=== PATIENT | male | born 1965 | race Caucasian/White ===

== ENCOUNTER 2017-01-11 10:08 | Day surgery (SDC) | payer BC ==
[2016-12-28 10:57] VITALS: BMI 31.0
--- NOTE | 2016-12-28 11:20 | PAT Medication Instructions ---
Service Date Dec 28, 2016. Current Home Medication List Dutasteride (Dutasteride), 1 CAP PO QAM Fexofenadine Hcl (Eleni Allergy), 1 TAB PO QAM Fluticasone Propionate (Nasal) (Flonase Allergy Relief), 2 SPRAY NAZIA QAM Ibuprofen (Motrin), 400 MG PO Q6H PRN for Pain Lisinopril (Zestril), 20 MG PO QAM Tamsulosin HCl (Tamsulosin HCl), 1 CAP PO QAM Medication Instructions For Your Scheduled Surgery - Check with surgeon for instructions: Ibuprofen (Motrin), 400 MG PO Q6H PRN for Pain - Hold the following medications the morning of surgery: Tamsulosin HCl (Tamsulosin HCl), 1 CAP PO QAM Lisinopril (Zestril), 20 MG PO QAM Dutasteride (Dutasteride), 1 CAP PO QAM Fexofenadine Hcl (Eleni Allergy), 1 TAB PO QAM - Take the following medications the morning of surgery with a sip of water: Fluticasone Propionate (Nasal) (Flonase Allergy Relief), 2 SPRAY NAIZA QAM If you have any questions please call us at [phone] (Coral Fraser PA-C) or [phone] or [phone]
--- NOTE | 2016-12-28 11:50 | DIAGNOSTIC IMAGING REPORT ---
TWO VIEW CHEST CLINICAL HISTORY: Preoperative examination. FINDINGS: PA and lateral chest radiographs are obtained. No prior studies are available for comparison at the time of dictation. The cardiomediastinal silhouette is unremarkable. The lungs and pleural spaces are clear. There is no pneumothorax. The bony thorax appears intact. IMPRESSION: No active disease in the chest. Electronically signed by: Chris Zacarias M.D. 12/28/2016 11:49 AM Dictated Date/Time: 12/28/2016 11:49 AM
[2016-12-28 13:26] LABS: BASO % 0.3 %; BASO ABS # 0.02 K/uL (0-0.2); COMPLETE YES; EOS % 2.7 %; HEMATOCRIT 43.4 % (42-52); IG% 0.3 %; LYMPH % 18.9 %; LYMPH ABS # 1.38 K/uL (1.2-3.4); MEAN CELL VOLUME 79.6 fL (80-100); MEAN CORPUSCULAR HEMOGLOBIN 28.8 pg (25-34); MEAN CORPUSCULAR HGB CONC 36.2 g/dl (32-36); MEAN PLATELET VOLUME 8.5 fL (7.4-10.4); MONO % 8.1 %; NEUT % 69.7 %; PLATELET COUNT 170 K/uL (130-400); RED BLOOD COUNT 5.45 M/uL (4.7-6.1); WHITE BLOOD COUNT 7.32 K/uL (4.8-10.8)
[2016-12-28 13:34] LABS: URINE APPEARANCE CLEAR (CLEAR); URINE BILIRUBIN NEG (NEG); URINE COLOR YELLOW; URINE NITRITE NEG (NEG); URINE PH 5.5 (4.5-7.5); URINE SPECIFIC GRAVITY 1.016 (1.000-1.030); UROBILINOGEN NEG (NEG)
[2016-12-28 13:37] LABS: MANUAL MICROSCOPIC REQUIRED? NO; REVIEW REQ? NO
[2016-12-28 14:06] LABS: BUN/CREATININE RATIO 14.1 (10-20); CALCIUM 9.4 mg/dl (8.5-10.1); CREATININE 1.1 mg/dl (0.60-1.40); POTASSIUM 4.5 mmol/L (3.5-5.1)
[2016-12-28 14:09] LABS: PROSTATE SPECIFIC ANTIGEN 0.773 ng/ml (0.000-4.000)
[~2017-01-11] VITALS: Ht 190.5 cm; Wt 113.9 kg
[~2017-01-11 10:08] MED LIST: CIPROFLOXACIN 400MG / D5W IV SCH; DUTA1CAP3 PO; FEXO1TAB49 PO; FLM4 PO; FLUT0.15 NAE; IBUP-1459 PO; LACTATED RINGER'S 1000ML 1,000 ML IV SCH; LISI-725 PO
[2017-01-11 10:25] VITALS: BP 153/84; PULSE 70; TEMP 37.1; O2SAT 98; Ht 190.5 cm; Wt 113.9 kg
[2017-01-11] MEDS ORDERED: HYDROmorphone INJ 2 MG/ML SYR/VIAL IV PRN (10:45)
[2017-01-11] MEDS ORDERED: EpHEDrine SULFATE INJ 50 MG/ML AMP IV PRN (10:45)
[2017-01-11] MEDS ORDERED: PHENYLEPHRINE 100MCG/ML 5ML SYR IV PRN (10:45)
[2017-01-11] MEDS ORDERED: ONDANSETRON INJ 2 MG/ML 2 ML VIAL IV PRN (10:45)
[2017-01-11] MEDS ORDERED: ATROPINE SULFATE 0.1 MG/ML 5ML SYR IV PRN (10:45)
[2017-01-11] MEDS ORDERED: FENTANYL CITRATE INJ 50 MCG/1 ML 2 ML VIAL ONE ×2 (10:47→12:12)
[2017-01-11] MEDS ORDERED: LIDOCAINE HCL 2% 2 ML VIAL (20MG/ML) ONE (10:47)
[2017-01-11] MEDS ORDERED: ROCURONIUM BROMIDE 10 MG/ML 5 ML VIAL ONE (10:47)
[2017-01-11] MEDS ORDERED: PROPOFOL IV EMULSION 10 MG/ML 20 ML VIAL IV ONE (10:47)
[2017-01-11] MEDS ORDERED: GLYCOPYRROLATE INJ 0.2 MG/ML VIAL ONE (10:47)
[2017-01-11] MEDS ORDERED: ONDANSETRON INJ 2 MG/ML 2 ML VIAL ONE (10:47)
[2017-01-11] MEDS ORDERED: NEOSTIGMINE METHYLSULFATE 5 MG/5 ML SYR ONE (10:47)
[2017-01-11] MEDS ORDERED: MIDAZOLAM HCL 1 MG/ML 2ML VIAL ONE (10:47)
--- NOTE | 2017-01-11 11:24 | History & Physical Bridge Note ---
H&P Re-Evaluation Bridge Note: I have examined the patient, reviewed the History & Physical and in the interval since the performance of the History & Physical I have noted the following changes of clinical significance: No changes noted
[2017-01-11] MEDS ORDERED: EpHEDrine SULFATE 50MG/5ML SYR ONE (12:09)
--- NOTE | 2017-01-11 13:07 | [facility] Post Operative Brief Note ---
Immediate Operative Summary Operative Date Jan 11, 2017. Pre-Operative Diagnosis Benign Prostatic Hypertrophy with Imcomplete Bladder Emptying Post-Operative Diagnosis Benign Prostatic Hypertrophy with Imcomplete Bladder Emptying Procedure(s) Performed Bipolar Transurethral Resection of Prostate Surgeon Dr. Everardo Garza Graduate Engineer Surgeon(s) None Estimated Blood Loss 2ml Findings obstructing prostate Specimens No specimen as per surgeon
[2017-01-11] MEDS ORDERED: NITR-5 PO (13:09)
[2017-01-11] MEDS ORDERED: PHEN-876 PO (13:09)
[2017-01-11] MEDS ORDERED: OXYC-57 PO (13:09)
--- NOTE | 2017-01-11 13:09 | Discharge Instructions ---
Discharge Instructions Visit Reason for Visit: Benign Prostatic Hyperplasia Discharge Discharge Diagnosis / Problem: BPH Discharge Goals Goal(s): Therapeutic intervention Activity Recommendations Activity Limitations: resume your previous activity (take it easy while cathether is in) Anesthesia . Post Anesthesia Instructions: If you have had General Anesthesia or IV Sedation: * Do not drive today. * Resume driving when surgeon permits. * Do not make important decisions or sign legal documents today. * Call surgeon for: 1. Temperature elevations greater than 101 degrees F. 2. Uncontrollable pain. 3. Excessive bleeding. 4. Persistent nausea and vomiting. 5. Medication intolerance (nausea, vomiting or rash). * For nausea and vomiting use only clear liquids such as: tea, soda, bouillon until nausea subsides, then gradually increase diet as tolerated. * If you have any concerns or questions, call your surgeon's office. If physician is unavailable and it is an emergency, call 911 or go to the nearest emergency room. . Diet Recommendations Recommended Home Diet: resume previous diet Procedures Procedures Performed: Bipolar Transurethral Resection of Prostate Pending Studies Studies pending at discharge: no Medical Emergencies . Who to Call and When: Medical Emergencies: If at any time you feel your situation is an emergency, please call 911 immediately. . Non-Emergent Contact Non-Emergency issues call your: Urologist . . "Provider Documentation" section prepared by Everardo Garza. PA Drug Monitoring Program Search Results: patient reviewed within database
[2017-01-11] MEDS ORDERED: OXYCODONE/ACETAMINOPHEN 5-325 TAB PO PRN (13:15)
--- NOTE | 2017-01-11 13:49 | Anesthesiology Progress Note ---
Anesthesia Post Op Note Date & Time Jan 11, 2017 at 13:49 Vital Signs Pain Intensity: 0 Vital Signs Past 12 Hours Date Time Temp Pulse Resp B/P Pulse Ox O2 Delivery O2 Flow Rate FiO2 01/11/17 13:35 86 16 143/89 100 Room Air 01/11/17 13:25 79 16 142/86 100 Mask 10 01/11/17 13:19 81 16 146/88 100 Mask 10 01/11/17 13:09 37 90 12 132/77 98 Mask 10 01/11/17 10:25 37.1 70 18 153/84 98 Room Air Notes Mental Status: alert / awake / arousable, participated in evaluation Pt Amnestic to Procedure: Yes Nausea / Vomiting: adequately controlled Pain: adequately controlled Airway Patency, RR, SpO2: stable & adequate BP & HR: stable & adequate Hydration State: stable & adequate Anesthetic Complications: no major complications apparent
[2017-01-11 14:00] VITALS: BP 144/91; PULSE 80; TEMP 37; O2SAT 100
--- NOTE | 2017-01-11 14:18 | OPERATIVE REPORT ---
DATE OF OPERATION: 01/11/2017 PREOPERATIVE DIAGNOSIS: Lower urinary tract symptoms with incomplete bladder emptying secondary to benign prostatic hyperplasia. POSTOPERATIVE DIAGNOSIS: Same. PROCEDURES: Cystoscopy, transurethral vaporization of the prostate. FINDINGS: Cystoscopic exam revealed normal anterior urethra, prostatic fossa was obstructing with kissing lateral lobes, a very elevated median lobe. Bladder showed 2 to 3+ trabeculation with cellules. Both ureteral orifices were effluxing clear urine. SURGEON: Everardo Garza MD ANESTHESIA: General. DRAINS: 20-[place] Marmolejo catheter in bladder. COMPLICATIONS: None. SPECIMENS: None. INDICATIONS: The patient is a 51-year-old white male who was seen in the office for some lower urinary tract symptoms. Unfortunately, his postvoid residuals or over 500 mL. He failed medical therapy with alpha blockers and 7-pjjbq-jyokckofp inhibitors. He is being brought in now for resection. DESCRIPTION OF PROCEDURE: After the induction of an adequate general anesthetic and appropriate time-out, patient was placed in the dorsal lithotomy position. Lower abdomen and genitalia were prepped with Hibiclens and draped in a sterile fashion. Using a 22-[place]icar[place]uan cystoscope, routine cystoscopic exam was performed with the above noted findings with the 30 and 70 degree lenses. Next, using a 24-[place]icaraguan resection scope and button electrode, the prostatic adenoma was vaporized from the bladder neck to the verumontanum from 1 o'clock to 6 o'clock clockwise and 11 o'clock to 6 o'clock counter clockwise. The little strip at the bladder neck between 11 and 1 was left untouched to help prevent bladder neck contractions. Care was taken to avoid injury to the ureteral orifices. After completing the vaporization and creating a wide open prostatic fossa, all bleeding points were electrocoagulated. Final view from the verumontanum revealed a wide open prostatic fossa. There was no bleeding. The patient's bladder was filled, he voided with a good stream on Crede maneuver. A 20-[place] Marmolejo catheter was inserted per urethra into the bladder and hooked to gravity drainage. All needle, sponge and instrument counts were correct at the end of the case. The patient tolerated the procedure well and went to recovery room in stable condition. I attest to the content of the Intraoperative Record and any orders documented therein. Any exceptio ns are noted below.
[2017-01-11 14:28] VITALS: BP 139/92; PULSE 75; O2SAT 100
--- NOTE | 2017-01-11 14:59 | Anesthesiology Progress Note ---
Anesthesia Post Op Note Date & Time Jan 11, 2017 at 15:00 Vital Signs Pain Intensity: 0 Vital Signs Past 12 Hours Date Time Temp Pulse Resp B/P Pulse Ox O2 Delivery O2 Flow Rate FiO2 01/11/17 14:28 75 18 139/92 100 Room Air 01/11/17 14:00 37 80 18 144/91 100 Room Air 01/11/17 13:55 36.6 81 16 148/84 100 Room Air 01/11/17 13:45 36.6 93 16 132/98 100 Room Air 01/11/17 13:35 86 16 143/89 100 Room Air 01/11/17 13:25 79 16 142/86 100 Mask 10 01/11/17 13:19 81 16 146/88 100 Mask 10 01/11/17 13:09 37 90 12 132/77 98 Mask 10 01/11/17 10:25 37.1 70 18 153/84 98 Room Air Notes Mental Status: alert / awake / arousable, participated in evaluation Pt Amnestic to Procedure: Yes Nausea / Vomiting: adequately controlled Pain: adequately controlled Airway Patency, RR, SpO2: stable & adequate BP & HR: stable & adequate Hydration State: stable & adequate Anesthetic Complications: no major complications apparent
[2017-01-11 15:00] VITALS: BP 142/78; PULSE 78; TEMP 37; O2SAT 100
== END 2017-01-11 15:32 | disposition home or self-care (01) ==
LOC: C.ACU 10:08
PROVIDERS: ATTEND Urology
DX: N40.1 Benign prostatic hyperplasia with lower urinary tract symptoms (principal); R33.9 Retention of urine, unspecified; N32.89 Other specified disorders of bladder

== ENCOUNTER → 2017-01-17 | Outpatient (CLI) | payer BC ==
[~2017-01-17] MED LIST changes: -CIPROFLOXACIN 400MG / D5W IV SCH; -LACTATED RINGER'S 1000ML 1,000 ML IV SCH; +NITR-5 PO; +OXYC-57 PO; +PHEN-876 PO
== END | disposition home or self-care (01) ==
LOC: C.LABSPEC 16:59
PROVIDERS: ATTEND Urology
DX: R33.9 Retention of urine, unspecified (principal)

== ENCOUNTER → 2017-01-31 | Outpatient (CLI) | payer BC | END | disposition home or self-care (01) | LOC: C.LAB 17:17 | PROVIDERS: ATTEND Nurse Practitioner Family | DX: R33.9 Retention of urine, unspecified (principal) ==

== ENCOUNTER → 2017-08-12 | Outpatient (CLI) | payer BC ==
[~2017-08-12] MED LIST changes: -NITR-5 PO; -OXYC-57 PO; -PHEN-876 PO
[2017-08-12 16:40] LABS: HEMATOCRIT 41.9 % (42-52); MEAN CORPUSCULAR HEMOGLOBIN 28.6 pg (25-34); MEAN CORPUSCULAR HGB CONC 35.3 g/dl (32-36); MEAN PLATELET VOLUME 8.4 fL (7.4-10.4); PLATELET COUNT 178 K/uL (130-400); RED BLOOD COUNT 5.17 M/uL (4.7-6.1); WHITE BLOOD COUNT 8.98 K/uL (4.8-10.8)
[2017-08-12 17:12] LABS: ALT/SGPT 32 U/L (12-78); AST/SGOT 15 U/L (15-37); BLOOD UREA NITROGEN 18 mg/dl (7-18); BUN/CREATININE RATIO 14.6 (10-20); CALCIUM 8.7 mg/dl (8.5-10.1); CARBON DIOXIDE 24 mmol/L (21-32); CHLORIDE 110 mmol/L (98-107); GLUCOSE 83 mg/dl (70-99); POTASSIUM 4.1 mmol/L (3.5-5.1); SODIUM 140 mmol/L (136-145)
[2017-08-12 17:23] LABS: ALB/GLOB RATIO 1.3 (0.9-2); ALKALINE PHOSPHATASE 120 U/L (45-117); CHOLESTEROL 156 mg/dl (0-200); CHOLESTEROL/HDL RATIO 4.9; HDL CHOLESTEROL 32 mg/dl; LDL CHOLESTEROL CALCULATED 107 mg/dl; TRIGLYCERIDES 85 mg/dl (0-150); VERY LOW DENSITY LIPOPROT CALC 17 mg/dl
== END | disposition home or self-care (01) ==
LOC: C.LABPBG 13:22
PROVIDERS: ATTEND Internal Medicine
DX: I10 Essential (primary) hypertension (principal)

== ENCOUNTER → 2018-01-13 | Outpatient (CLI) | payer OTHER ==
[2018-01-13 12:22] LABS: BASO % 0.5 %; BASO ABS # 0.03 K/uL (0-0.2); EOS % 6.4 %; EOS ABS # 0.39 K/uL (0-0.5); HEMOGLOBIN 14.5 g/dL (14.0-18.0); IG# 0.02 K/uL (0.00-0.02); LYMPH % 30.4 %; LYMPH ABS # 1.84 K/uL (1.2-3.4); MEAN CELL VOLUME 77.1 fL (80-100); MEAN CORPUSCULAR HEMOGLOBIN 27.3 pg (25-34); MEAN CORPUSCULAR HGB CONC 35.4 g/dl (32-36); MONO % 8.6 %; MONO ABS # 0.52 K/uL (0.11-0.59); NEUT % 53.8 %; NEUT ABS # 3.26 K/uL (1.4-6.5); PLATELET COUNT 125 K/uL (130-400); RED CELL DISTRIBUTION WIDTH SD 39.6 fL (36.4-46.3); WHITE BLOOD COUNT 6.06 K/uL (4.8-10.8)
[2018-01-13 16:59] LABS: ALBUMIN 3.9 gm/dl (3.4-5.0); ALT/SGPT 24 U/L (12-78); AST/SGOT 21 U/L (15-37); BLOOD UREA NITROGEN 20 mg/dl (7-18); CALCIUM 8.6 mg/dl (8.5-10.1); CARBON DIOXIDE 22 mmol/L (21-32); CREATININE 1.19 mg/dl (0.60-1.40); GLUCOSE 86 mg/dl (70-99); POTASSIUM 4.2 mmol/L (3.5-5.1); SODIUM 137 mmol/L (136-145)
[2018-01-13 17:10] LABS: ALKALINE PHOSPHATASE 150 U/L (45-117); TOTAL PROTEIN 8.1 gm/dl (6.4-8.2)
== END | disposition home or self-care (01) ==
LOC: C.LABBFT 11:03
PROVIDERS: ATTEND Physician Assistant Medical
DX: R61 Generalized hyperhidrosis (principal)

== ENCOUNTER → 2018-01-16 | Outpatient (CLI) | payer OTHER ==
--- NOTE | 2018-01-16 08:44 | DIAGNOSTIC IMAGING REPORT ---
ABDOMEN COMPLETE (US) CLINICAL HISTORY: 52 years-old Male presenting with NIGHT SWEATS, LUQ TENDERNESS. TECHNIQUE: Real-time grayscale and limited color Doppler ultrasound imaging of the abdomen was performed. COMPARISON: CT from 02/23/2016. FINDINGS: Pancreas: Largely obscured due to overlying bowel gas. Liver: Mildly hyperechogenic parenchyma, although the right hemidiaphragm remains visible, likely indicating mild steatosis. The liver measures 17.3 cm in maximal sagittal dimension. No sonographic evidence of hepatic mass. Main portal vein patent with normal directional flow. Biliary: No intrahepatic biliary ductal dilatation. Common bile duct measures up to 3 mm in diameter. Gallbladder: Minimal gallbladder sludge may be present or diminutive cholesterol polyps. No evidence of gallstones, gallbladder wall thickening, gallbladder distention, or pericholecystic fluid or inflammatory change. Spleen: Enlarged, measuring 20.2 cm in length. This has increased in size since prior CT from 2016, when the spleen measures 16.2 cm in sagittal dimension. Kidneys: Normal in size and echogenicity. Right kidney measures 12.5 cm, and left kidney measures 13.5 cm. No hydronephrosis. Vasculature: Abdominal aorta and IVC not visualized secondary to limited sonographic window. Ascites: None. Other: Prominent lymph node in the john hepatis measuring 2.3 x 1.8 x 1.7 cm, possibly reactive. IMPRESSION: 1. Worsening splenomegaly, which raises concern for an underlying lymphoproliferative disease. Differential considerations include reactive hypertrophy in the setting of a viral illness or portal hypertension. Correlate clinically. 2. Likely reactive lymph node in the john hepatis. 3. Suggestion of hepatic steatosis. The report will be called/faxed according to standard departmental protocol. Electronically signed by: Jatin Francois M.D. 01/16/2018 8:43 AM Dictated Date/Time: 01/16/2018 8:36 AM
== END | disposition home or self-care (01) ==
LOC: C.ULTR 07:43
PROVIDERS: ATTEND Physician Assistant Medical
DX: R16.1 Splenomegaly, not elsewhere classified (principal); R61 Generalized hyperhidrosis

== ENCOUNTER → 2018-01-23 | Outpatient (CLI) | payer OTHER ==
--- NOTE | 2018-01-23 17:01 | DIAGNOSTIC IMAGING REPORT ---
CHEST 2 VIEWS ROUTINE CLINICAL HISTORY: R61 Night sweats dyspnea COMPARISON STUDY: 12/28/2016 FINDINGS: The bones soft tissues and hemidiaphragms are normal. The cardiomediastinal silhouette is normal. The lungs are clear. The pulmonary vasculature is normal. IMPRESSION: Negative chest. The above report was generated using voice recognition software. It may contain grammatical, syntax or spelling errors. Electronically signed by: Ovidio Dueñas M.D. 01/23/2018 5:00 PM Dictated Date/Time: 01/23/2018 4:59 PM
== END | disposition home or self-care (01) ==
LOC: C.RAD 16:35
PROVIDERS: ATTEND Physician Assistant Medical
DX: R61 Generalized hyperhidrosis (principal)

== ENCOUNTER → 2018-01-23 | Outpatient (CLI) | payer OTHER ==
[~2018-01-23] MED LIST changes: +OPTIRAY 320 IV PRN
--- NOTE | 2018-01-23 16:38 | DIAGNOSTIC IMAGING REPORT ---
ABD/PELVIS IV AND ORAL CONT CT DOSE: 886.58 mGy.cm HISTORY: R16.1 [id number] Lymphadenopathy TECHNIQUE: Multiaxial CT images of the abdomen and pelvis were performed following the use of intravenous and oral contrast. A dose lowering technique was utilized adhering to the principles of ALARA. COMPARISON STUDY: 02/23/2016 FINDINGS: Focal atelectatic change medial aspect right middle lobe. Like atelectasis left base. Liver is uniform. Splenomegaly with a greatest linear dimension of 15 cm. Bulky abdominal adenopathy. Nodes are identified throughout the periaortic and retroperitoneal regions, with considerable conglomerate bulky adenopathy involving the root of the mesentery and mid abdominal region. Para-aortic nodes measure up to 4.5 cm with conglomerate isidro dimensions within the mid mesentery measuring up to 13 cm. Kidneys are considered to be negative for hydronephrosis. There is nonspecific infiltrative change of the fat of the Region at the inferior aspect of the abdomen. Mild infiltrative changes of the lateral aspect of the left hemipelvis are noted. There is moderate inguinal adenopathy with nodes measuring up to 2.3 cm. Lateral pelvic sidewall nodes are also noted combined with infiltrative changes described previously. These nodes measure to 1.5 cm. The bowel pattern is considered nonobstructive. Nodes within the low pelvic regions measure up to 4 cm in maximum linear dimension bilaterally. The bowel pattern is considered nonobstructive. The osseous structures show no evidence for lytic or blastic process. IMPRESSION: 1. Interval development of bulky adenopathy involving the abdomen, retroperitoneal, pelvis and inguinal region. 2. This is most prominent within the retroperitoneum and mid abdominal regions with measurements of the conglomerate abdominal adenopathy measuring to 13 cm. 3. A neoplastic process such as lymphoma is the diagnosis of exclusion. 4. Splenomegaly. The above report was generated using voice recognition software. It may contain grammatical, syntax or spelling errors. Electronically signed by: Ovidio Dueñas M.D. 01/23/2018 4:37 PM Dictated Date/Time: 01/23/2018 4:29 PM
== END | disposition home or self-care (01) ==
LOC: C.CTS 16:05
PROVIDERS: ATTEND Physician Assistant Medical
DX: R59.1 Generalized enlarged lymph nodes (principal); R16.1 Splenomegaly, not elsewhere classified

== ENCOUNTER → 2018-01-31 | Outpatient (CLI) | payer OTHER ==
[~2018-01-31] MED LIST changes: -OPTIRAY 320 IV PRN
--- NOTE | 2018-01-31 12:29 | DIAGNOSTIC IMAGING REPORT ---
GUIDANCE NEEDLE PLACEMENT CLINICAL HISTORY: LYMPHADENOPATHY, INGUINAL NODE *W/CORE BIOPSY* TECHNIQUE: Ultrasound-guided fine-needle aspiration and core biopsy COMPARISON STUDY: CT abdomen and pelvis 01/23/2018 FINDINGS: Following description of procedure and informed consent, 2 passes with a 20 needle were made to a dominant right inguinal node. This is followed by 2 passes with a 20-gauge core biopsy needle. There were no complications. IMPRESSION: Fine-needle aspiration and core biopsy of a dominant right inguinal lymph node. No complications. Pathology is pending. The above report was generated using voice recognition software. It may contain grammatical, syntax or spelling errors. Electronically signed by: Ovidio Dueñas M.D. 01/31/2018 12:27 PM Dictated Date/Time: 01/31/2018 12:26 PM
== END | disposition home or self-care (01) ==
LOC: C.ULTR 10:42
PROVIDERS: ATTEND Physician Assistant Medical
DX: R59.1 Generalized enlarged lymph nodes (principal)

== ENCOUNTER → 2018-02-15 | Outpatient (CLI) | payer OTHER ==
[~2018-02-15] MED LIST changes: +HYDR-5688 PO
== END | disposition home or self-care (01) ==
LOC: C.CPL 13:11
PROVIDERS: ATTEND Surgery
DX: R59.1 Generalized enlarged lymph nodes (principal)

== ENCOUNTER → 2018-02-21 | Day surgery (SDC) | payer OTHER ==
[2018-02-17 13:20] VITALS: Ht 190.5 cm; Wt 109.1 kg
[~2018-02-21] VITALS: Ht 190.5 cm; Wt 109.1 kg
[~2018-02-21] MED LIST changes: +ATROPINE SULFATE 0.1 MG/ML 5ML SYR IV PRN; +BUPIVACAINE 0.5 % 5 MG/1 ML MPF 30ML VIAL ONE; +CLINDAMYCIN 900MG IV SCH; +CLINDAMYCIN IV 900 MG in DEXTROSE 5% 50ML 44 ML IV SCH; +DEXAMETHASONE SOD INJ 4 MG/ML VIAL ONE; +EpHEDrine SULFATE 50MG/5ML SYR ONE; +EpHEDrine SULFATE INJ 50 MG/ML AMP IV PRN; +FENTANYL CITRATE INJ 50 MCG/1 ML 2 ML VIAL IV PRN; +FENTANYL CITRATE INJ 50 MCG/1 ML 2 ML VIAL ONE; -FLM4 PO; +FLUMAZENIL 0.1 MG/1 ML 10 ML VIAL IV PRN; +GLYCOPYRROLATE INJ 0.2 MG/ML VIAL ONE; +HYDROCODONE/ACETAMIN 5/325MG TAB PO PRN; +HYDROmorphone INJ 2 MG/ML SYR/VIAL IV PRN; +KETOROLAC TROMETHAMINE 30 MG/ML VIAL IV STA; +KETOROLAC TROMETHAMINE 30 MG/ML VIAL ONE; +LABETALOL HCL IV 5 MG/ML 20ML IV PRN; +LACTATED RINGER'S 1000ML 1,000 ML IV SCH; +LIDOCAINE HCL 2% 2 ML VIAL (20MG/ML) ONE; +MEPERIDINE HCL 25 MG/ML CARP IV PRN; +MIDAZOLAM HCL 1 MG/ML 2ML VIAL ONE; +NALOXONE HCL 0.4 MG/1 ML VIAL/CARP IV PRN; +NEOSTIGMINE METHYLSULFATE 5 MG/5 ML SYR ONE; +ONDANSETRON INJ 2 MG/ML 2 ML VIAL IV PRN; +ONDANSETRON INJ 2 MG/ML 2 ML VIAL ONE; +PHENYLEPHRINE 100MCG/ML 5ML SYR IV PRN; +PHENYLEPHRINE HCL INJ 10 MG/ML VIAL ONE; +PROPOFOL IV EMULSION 10 MG/ML 20 ML VIAL IV ONE; +ROCURONIUM BROMIDE 10 MG/ML 5 ML VIAL IV ONE; +SODIUM CHLORIDE 0.9% 1000ML 1,000 ML IV SCH
--- NOTE | 2018-02-21 14:08 | [facility] Operative Report ---
Operative Report Operative Date Feb 21, 2018. Pre-Operative Diagnosis Lymphadenopathy Post-Operative Diagnosis same as pre op Procedure(s) Performed Left Posterior Cervical Lymph Node Biopsy Surgeon Dr Ireland Registered Nursing Professor Surgeon(s) none Estimated Blood Loss 10ml Findings large lymph node Specimens A) Left Posterior Cervical Lymph Node Anesthesia Type General Complication(s) none Disposition Recovery Room / PACU I attest to the content of the Intraoperative Record and any orders documented therein. Any exceptions are noted below.
--- NOTE | 2018-02-21 14:12 | Discharge Instructions-SurgCtr ---
Discharge Instructions Date of Service Feb 21, 2018. Visit Reason for Visit: Lymphadenopathy Discharge Discharge Diagnosis / Problem: lymphadenopathy Discharge Goals Goal(s): Decrease discomfort, Improve function, Improve disease control Activity Recommendations Activity Limitations: as noted below Lifting Limitations: no more than 25 pounds (for 2 weeks) Exercise/Sports Limitations: until after follow-up appointment May Resume Sexual Activity: when tolerated Shower/Bathe: tomorrow Driving or Machine Use: resume 1 day after discharge Anesthesia . Post Anesthesia Instructions: If you have had General Anesthesia or IV Sedation: * Do not drive today. * Resume driving when surgeon permits. * Do not make important decisions or sign legal documents today. * Call surgeon for: 1. Temperature elevations greater than 101 degrees F. 2. Uncontrollable pain. 3. Excessive bleeding. 4. Persistent nausea and vomiting. 5. Medication intolerance (nausea, vomiting or rash). * For nausea and vomiting use only clear liquids such as: tea, soda, bouillon until nausea subsides, then gradually increase diet as tolerated. * If you have any concerns or questions, call your surgeon's office. If physician is unavailable and it is an emergency, call 911 or go to the nearest emergency room. . Instructions / Follow-Up Instructions / Follow-Up SPECIAL CARE INSTRUCTIONS: * Cover incisions and change daily for comfort/drainage. may leave uncovered with dermabond * May use ibuprofen for pain as tolerated. * Expect some swelling and bruising. Call your doctor if: * Temperature above 101 degrees * Pain not relieved by pain medicine ordered * There is increased drainage or redness from any incision * You have any unanswered questions or concerns [phone]. FOLLOW UP VISIT: If not already scheduled, please call the office for a follow-up visit. for 2 weeks- wound check- no sutures to remove OFFICE PHONE NUMBER: Dr. Ireland Office Diet Recommendations Home Diet: resume previous diet Procedures Procedures Performed: Left Posterior Cervical Lymph Node Biopsy Pending Studies Studies pending at discharge: no Medical Emergencies . Who to Call and When: Medical Emergencies: If at any time you feel your situation is an emergency, please call 911 immediately. . Non-Emergent Contact Non-Emergency issues call your: Primary Care Provider, Surgeon . . "Provider Documentation" section prepared by Aamir Ireland. .
--- NOTE | 2018-02-21 14:37 | OPERATIVE REPORT ---
DATE OF OPERATION: 02/21/2018 NAME OF OPERATION: Left cervical lymph node biopsy. PREOPERATIVE DIAGNOSIS: Lymphadenopathy. POSTOPERATIVE DIAGNOSIS: Same. STAFF SURGEON: Dr. Ireland. ANESTHESIA: General anesthetic. DESCRIPTION OF PROCEDURE: The patient was brought in the operating room and placed on the operating table in supine position. Left neck was prepped and draped in usual fashion. Incision was made transversely mid posterior neck carrying dissection down to the platysma muscle, identifying the spinal accessory nerve, dissecting anterior to this, identifying the lymph node and dissecting it from surrounding tissue. Tissue was ligated and reapproximated using 2-0 chromic suture and then the subcutaneous tissue reapproximated using 4-0 chromic suture. Skin reapproximated using Dermabond. The patient was transferred to recovery room in stable condition. I attest to the content of the Intraoperative Record and any orders documented therein. Any exception s are noted below.
--- NOTE | 2018-02-21 14:45 | Anesthesiology Progress Note ---
Anesthesia Post Op Note Date & Time Feb 21, 2018 at 14:44 Vital Signs Pain Intensity: 0 Vital Signs Past 12 Hours Date Time Temp Pulse Resp B/P (MAP) Pulse Ox O2 Delivery O2 Flow Rate FiO2 02/21/18 14:25 90 10 98 02/21/18 14:25 89 10 02/21/18 14:21 153/102 02/21/18 14:20 99 6 95 02/21/18 14:20 36.5 96 18 153/102 96 Mask 6 02/21/18 14:20 98 6 02/21/18 12:07 36.9 88 18 147/90 (109) 96 Room Air Notes Mental Status: alert / awake / arousable, participated in evaluation Pt Amnestic to Procedure: Yes Nausea / Vomiting: adequately controlled Pain: adequately controlled Airway Patency, RR, SpO2: stable & adequate BP & HR: stable & adequate Hydration State: stable & adequate Anesthetic Complications: no major complications apparent
[2018-02-21] MEDS: HYDROCODONE/ACETAMIN 5/325MG TAB PO PRN ×2 (15:07→15:17)
[2018-02-21 15:53] VITALS: TEMP 36.8
[2018-02-21 16:08] VITALS: BP 146/83; PULSE 79; O2SAT 97
== END | disposition home or self-care (01) ==
LOC: X.SURG 11:48
PROVIDERS: ATTEND Surgery
DX: C83.11 Mantle cell lymphoma, lymph nodes of head, face, and neck (principal); I10 Essential (primary) hypertension; N40.1 Benign prostatic hyperplasia with lower urinary tract symptoms; Z88.0 Allergy status to penicillin; Z80.7 Family history of other malignant neoplasms of lymphoid, hematopoietic and related tissues; Z83.3 Family history of diabetes mellitus

== ENCOUNTER → 2018-02-22 | Outpatient (CLI) | payer OTHER ==
[~2018-02-22] MED LIST changes: -ATROPINE SULFATE 0.1 MG/ML 5ML SYR IV PRN; -BUPIVACAINE 0.5 % 5 MG/1 ML MPF 30ML VIAL ONE; -CLINDAMYCIN 900MG IV SCH; -CLINDAMYCIN IV 900 MG in DEXTROSE 5% 50ML 44 ML IV SCH; -DEXAMETHASONE SOD INJ 4 MG/ML VIAL ONE; -EpHEDrine SULFATE 50MG/5ML SYR ONE; -EpHEDrine SULFATE INJ 50 MG/ML AMP IV PRN; -FENTANYL CITRATE INJ 50 MCG/1 ML 2 ML VIAL IV PRN; -FENTANYL CITRATE INJ 50 MCG/1 ML 2 ML VIAL ONE; -FLUMAZENIL 0.1 MG/1 ML 10 ML VIAL IV PRN; -GLYCOPYRROLATE INJ 0.2 MG/ML VIAL ONE; -HYDROCODONE/ACETAMIN 5/325MG TAB PO PRN; -HYDROmorphone INJ 2 MG/ML SYR/VIAL IV PRN; -KETOROLAC TROMETHAMINE 30 MG/ML VIAL IV STA; -KETOROLAC TROMETHAMINE 30 MG/ML VIAL ONE; -LABETALOL HCL IV 5 MG/ML 20ML IV PRN; -LACTATED RINGER'S 1000ML 1,000 ML IV SCH; -LIDOCAINE HCL 2% 2 ML VIAL (20MG/ML) ONE; -MEPERIDINE HCL 25 MG/ML CARP IV PRN; -MIDAZOLAM HCL 1 MG/ML 2ML VIAL ONE; -NALOXONE HCL 0.4 MG/1 ML VIAL/CARP IV PRN; -NEOSTIGMINE METHYLSULFATE 5 MG/5 ML SYR ONE; -ONDANSETRON INJ 2 MG/ML 2 ML VIAL IV PRN; -ONDANSETRON INJ 2 MG/ML 2 ML VIAL ONE; -PHENYLEPHRINE 100MCG/ML 5ML SYR IV PRN; -PHENYLEPHRINE HCL INJ 10 MG/ML VIAL ONE; -PROPOFOL IV EMULSION 10 MG/ML 20 ML VIAL IV ONE; -ROCURONIUM BROMIDE 10 MG/ML 5 ML VIAL IV ONE; -SODIUM CHLORIDE 0.9% 1000ML 1,000 ML IV SCH
--- NOTE | 2018-02-22 11:51 | DIAGNOSTIC IMAGING REPORT ---
PET/CT SKULL-THIGH CLINICAL HISTORY: NHL COMPARISON STUDY: CT scan performed January 2018 FINDINGS: The patient was injected with 12.2 mCi of F 18 labeled FDG. Findings standard induction phase, PET/CT scanning is performed from the skull base to the upper thigh region. Within the neck, there are innumerable FDG avid cervical lymph nodes. In addition there are FDG avid intraparotid lymph nodes. An index right retromandibular node measures 27 mm in diameter, and demonstrates an SUV maximum of 8.3. Within the chest, there are bilateral FDG avid supraclavicular lymph nodes. There are FDG avid retropectoral lymph nodes. There are bilateral FDG avid axillary lymph nodes. There are FDG avid mediastinal lymph nodes. There are no pleural effusions. Dependent parenchymal opacities, are likely atelectatic. Within the abdomen, there is bulky mesenteric and retroperitoneal lymphadenopathy. The mesenteric mass measures 16 cm transversely and has an SUV maximum of 7.9. An index left para-aortic lymph node measures 53 mm in diameter and has an SUV maximum of 5.8. There is bilateral iliac lymphadenopathy. There is bilateral FDG avid inguinal lymphadenopathy. The spleen is enlarged measuring 21 cm. There are no FDG avid bone lesions. IMPRESSION: 1. Extensive FDG avid cervical, axillary, mediastinal, abdominal, and pelvic lymphadenopathy. 2. Splenomegaly Electronically signed by: Edward Haro M.D. 02/22/2018 11:50 AM Dictated Date/Time: 02/22/2018 11:41 AM
== END | disposition home or self-care (01) ==
LOC: C.PET 08:10
PROVIDERS: ATTEND Internal Medicine Hematology & Oncology
DX: C85.98 Non-Hodgkin lymphoma, unspecified, lymph nodes of multiple sites (principal)

== ENCOUNTER → 2018-03-08 | Day surgery (SDC) | payer OTHER ==
[2018-02-24 14:42] VITALS: BMI 29.0
[~2018-03-08] VITALS: Ht 190.5 cm; Wt 106.4 kg
[~2018-03-08] MED LIST changes: +ATROPINE SULFATE 0.1 MG/ML 5ML SYR IV PRN; +CEFAZOLIN SOD 1 GM VIAL ONE; +CLINDAMYCIN IV 900 MG in DEXTROSE 5% 50ML 44 ML IV SCH; +EpHEDrine SULFATE INJ 50 MG/ML AMP IV PRN; +FENTANYL CITRATE INJ 50 MCG/1 ML 2 ML VIAL ONE; +HEPARIN SOD (PORCINE) 1000 UNIT/ML 10 ML VIAL ONE; -HYDR-5688 PO; +LACTATED RINGER'S 1000ML 1,000 ML IV SCH; +LIDOCAINE HCL 1% 20 ML VIAL ONE; +MIDAZOLAM HCL 1 MG/ML 2ML VIAL ONE; +ONDANSETRON INJ 2 MG/ML 2 ML VIAL IV PRN; +ONDANSETRON INJ 2 MG/ML 2 ML VIAL ONE; +PROPOFOL IV EMULSION 10 MG/ML 20 ML VIAL IV ONE; +THROMBIN FOR SOLN 20000 UNIT KIT ONE; +TRAM-453 PO; +TRAMADOL HCL 50 MG TAB PO PRN
[2018-03-08 05:30] VITALS: BP 157/94; PULSE 102; TEMP 36.7; O2SAT 97; Ht 190.5 cm; Wt 106.4 kg
[2018-03-08 05:34] LABS: HEMATOCRIT 39.4 % (42-52); HEMOGLOBIN 13.7 g/dL (14.0-18.0); MEAN CORPUSCULAR HEMOGLOBIN 26.1 pg (25-34); MEAN PLATELET VOLUME 7.6 fL (7.4-10.4); PLATELET COUNT 121 K/uL (130-400); RED CELL DISTRIBUTION WIDTH SD 40.8 fL (36.4-46.3); WHITE BLOOD COUNT 5.14 K/uL (4.8-10.8)
[2018-03-08 05:44] LABS: MEAN CORPUSCULAR HGB CONC 34.8 g/dl (32-36)
--- NOTE | 2018-03-08 06:00 | History and Physical ---
History & Physical Date Mar 08, 2018. Chief Complaint lymphoma History of Present Illness The patient is a 52 year old male with complaints of Past Medical/Surgical History cervical lymph node bx- lymphoma Additional History Hepatic Disease: No Kidney Disease: No Hypertension: Yes Heart Disease: No Bleeding Tendencies: No Allergies Coded Allergies: Penicillins (Verified Allergy, Intermediate, RASH, ITCHING, 03/08/18) Hydrocodone (Verified Allergy, Unknown, NAUSEA AND VOMITING, 03/08/18) Home Medications Scheduled Dutasteride (Dutasteride), 1 CAP PO QAM Fexofenadine Hcl (Eleni Allergy), 1 TAB PO QAM Fluticasone Propionate (Nasal) (Flonase Allergy Relief), 2 SPRAY NAZIA QAM Lisinopril (Zestril), 20 MG PO QAM Scheduled PRN Ibuprofen (Motrin), 400 MG PO Q6H PRN for Pain Physical Examination Skin: warm/dry Eyes: normal inspection Head: atraumatic Neck: supple, + pertinent finding (healing incision) Respiratory/Chest: no respiratory distress Cardiovascular: regular rate, rhythm Abdomen / GI: non tender Neurologic/Psych: alert Diagnosis lymphoma Plan of Treatment for access port placement
--- NOTE | 2018-03-08 07:15 | Discharge Instructions ---
Discharge Instructions Date of Service Mar 08, 2018. Visit Reason for Visit: Non-Hodgkin's Lymphoma Discharge Discharge Diagnosis / Problem: A-port Discharge Goals Goal(s): Therapeutic intervention Activity Recommendations Activity Limitations: resume your previous activity Shower/Bathe: keep incision dry (for 2 days) Anesthesia . Post Anesthesia Instructions: If you have had General Anesthesia or IV Sedation: * Do not drive today. * Resume driving when surgeon permits. * Do not make important decisions or sign legal documents today. * Call surgeon for: 1. Temperature elevations greater than 101 degrees F. 2. Uncontrollable pain. 3. Excessive bleeding. 4. Persistent nausea and vomiting. 5. Medication intolerance (nausea, vomiting or rash). * For nausea and vomiting use only clear liquids such as: tea, soda, bouillon until nausea subsides, then gradually increase diet as tolerated. * If you have any concerns or questions, call your surgeon's office. If physician is unavailable and it is an emergency, call 911 or go to the nearest emergency room. . Instructions / Follow-Up Instructions / Follow-Up Dr. Wynn office in 2 weeks for suture removal, call [phone] to schedule or if you have any questions Diet Recommendations Recommended Home Diet: no limitations Pending Studies Studies pending at discharge: no Medical Emergencies . Who to Call and When: Medical Emergencies: If at any time you feel your situation is an emergency, please call 911 immediately. . Non-Emergent Contact Non-Emergency issues call your: Surgeon Call Non-Emergent contact if: you have a fever, temperature is above 101.5, your pain is not controlled, wound has increased redness, you have any medication questions . . "Provider Documentation" section prepared by Rylan Abraham. .
--- NOTE | 2018-03-08 07:45 | [facility] Operative Report ---
Operative Report Operative Date Mar 08, 2018. Pre-Operative Diagnosis Lymphoma Post-Operative Diagnosis Same as preoperative. Procedure(s) Performed Insertion of Aport, Left Cephalic Surgeon Dr. Aamir Ireland Credit Card Control Clerk Surgeon(s) None per surgeon Estimated Blood Loss 10ml Specimens None per surgeon. Drains None Anesthesia Type MAC Complication(s) none Disposition Recovery Room / PACU I attest to the content of the Intraoperative Record and any orders documented therein. Any exceptions are noted below.
--- NOTE | 2018-03-08 07:59 | OPERATIVE REPORT ---
DATE OF OPERATION: 03/08/2018 NAME OF OPERATION: Access port placement. PREOPERATIVE DIAGNOSIS: Lymphoma. POSTOPERATIVE DIAGNOSIS: Same. STAFF SURGEON: Dr. Ireland. ANESTHESIA: 1% plain lidocaine with sedation. DESCRIPTION OF PROCEDURE: The patient was brought in the operating room and placed on the operating room table in the supine position. His upper chest was prepped and draped in usual fashion. Using 1% plain lidocaine, skin and subcutaneous tissue over the left deltopectoral groove were anesthetized. Incision made carrying dissection down identifying the cephalic vein. The vein was ligated distally using 2-0 silk suture and then partially opened. Under fluoroscopy, a catheter was passed into the superior vena cava, securing it using 2-0 silk suture and then aspirating and flushing with heparinized solution. A pocket was fashioned in the chest wall and then the port attached to the catheter, port placed into the pocket and secured to the chest wall using 3-0 Prolene suture. The port was then aspirated and flushed with heparinized solution. The site irrigated with antibiotic solution. Then, the subcutaneous tissue reapproximated using 2-0 chromic suture and then the skin reapproximated using 4-0 nylon suture. Dressing applied and patient transferred to recovery room in stable condition. I attest to the content of the Intraoperative Record and any orders documented therein. Any exception s are noted below.
--- NOTE | 2018-03-08 08:11 | Anesthesiology Progress Note ---
Anesthesia Post Op Note Date & Time Mar 08, 2018 at 08:11 Vital Signs Pain Intensity: 0 Vital Signs Past 12 Hours Date Time Temp Pulse Resp B/P (MAP) Pulse Ox O2 Delivery O2 Flow Rate FiO2 03/08/18 08:00 98 16 148/92 98 Room Air 03/08/18 07:50 36.8 102 16 168/108 98 Room Air 03/08/18 05:30 36.7 102 18 157/94 (115) 97 Room Air Notes Mental Status: alert / awake / arousable, participated in evaluation Pt Amnestic to Procedure: Yes Nausea / Vomiting: adequately controlled Pain: adequately controlled Airway Patency, RR, SpO2: stable & adequate BP & HR: stable & adequate Hydration State: stable & adequate Anesthetic Complications: no major complications apparent
--- NOTE | 2018-03-08 08:18 | DIAGNOSTIC IMAGING REPORT ---
CHEST ONE VIEW PORTABLE HISTORY: 52 years-old Male port status post placement of a left subclavian Byjeue-t-Huaw catheter. History of non-Hodgkin's lymphoma COMPARISON: PET CT 02/22/2018 TECHNIQUE: Portable AP view of the chest FINDINGS: Cardiac silhouette is within normal limits. Mediastinal prominence compatible with pathologic adenopathy as seen on recent PET/CT. Status post placement of a left subclavian Qoitby-x-Kklk catheter with distal tip terminating in the expected location of the right atrium. No postprocedural pneumothorax identified. There is no pneumothorax, pleural effusion, focal airspace consolidation or overt pulmonary edema. Linear subsegmental right perihilar and bibasilar opacities are again seen suggesting areas of atelectasis/scarring. The bones of the chest appear grossly intact. IMPRESSION: 1. Status post placement of a left subclavian Lyassv-f-Mfgd catheter with distal tip terminating in the expected location of the right atrium. No postprocedural pneumothorax identified. 2. Bilateral hilar prominence compatible with pathologic adenopathy. 3. Subsegmental right perihilar and bibasilar atelectasis. The above report was generated using voice recognition software. It may contain grammatical, syntax or spelling errors. Electronically signed by: Danis Lunsford M.D. 03/08/2018 8:17 AM Dictated Date/Time: 03/08/2018 8:14 AM
[2018-03-08 08:23] VITALS: BP 121/80; PULSE 95; TEMP 37.4; O2SAT 96
[2018-03-08 09:25] VITALS: BP 134/79; PULSE 96; TEMP 37.4; O2SAT 97
== END | disposition home or self-care (01) ==
LOC: C.ACU 05:07
PROVIDERS: ATTEND Surgery
DX: C85.90 Non-Hodgkin lymphoma, unspecified, unspecified site (principal); I10 Essential (primary) hypertension; Z79.899 Other long term (current) drug therapy; Z88.5 Allergy status to narcotic agent; Z88.0 Allergy status to penicillin

== ENCOUNTER → 2018-03-24 | Outpatient (CLI) | payer OTHER ==
[~2018-03-24] MED LIST changes: -ATROPINE SULFATE 0.1 MG/ML 5ML SYR IV PRN; -CEFAZOLIN SOD 1 GM VIAL ONE; -CLINDAMYCIN IV 900 MG in DEXTROSE 5% 50ML 44 ML IV SCH; -EpHEDrine SULFATE INJ 50 MG/ML AMP IV PRN; -FENTANYL CITRATE INJ 50 MCG/1 ML 2 ML VIAL ONE; -HEPARIN SOD (PORCINE) 1000 UNIT/ML 10 ML VIAL ONE; -LACTATED RINGER'S 1000ML 1,000 ML IV SCH; -LIDOCAINE HCL 1% 20 ML VIAL ONE; -MIDAZOLAM HCL 1 MG/ML 2ML VIAL ONE; -ONDANSETRON INJ 2 MG/ML 2 ML VIAL IV PRN; -ONDANSETRON INJ 2 MG/ML 2 ML VIAL ONE; -PROPOFOL IV EMULSION 10 MG/ML 20 ML VIAL IV ONE; -THROMBIN FOR SOLN 20000 UNIT KIT ONE; -TRAM-453 PO; -TRAMADOL HCL 50 MG TAB PO PRN
--- NOTE | 2018-03-24 16:17 | ECHOCARDIOGRAM REPORT ---
*NOTICE TO RECEIVING REPUBLICAN AGENCY This information is strictly Confidential and protected under [place] law. [place] law prohibits you from making any further disclosure of this information unless further disclosure is expressly permitted by the written consent of the person to whom it pertains or is authorized by law. A general authorization for the release of medical or other information is not sufficient for this purpose. Hospital accepts no responsibility if the information is made available to any other person, INCLUDING THE PATIENT. Interpretation Summary * Name: JESSICA JAIMES Study Date: 03/24/2018 03:09 PM BP: 146/86 mmHg * Patient Location: [facility] HR: 85 * : 1965 (M/d/yyyy) Gender: Male Height: 74 in * Age: 52 yrs Ethnicity: [place] Weight: 235 lb * Ordering Physician: Dani Russo * Performed By: Maliha Bunn RDCS * * Reason For Study: EVAL FOR START OF CHEMO * BSA: 2.3 m2 * -- Conclusions -- * Left ventricular systolic function is normal. * No regional wall motion abnormalities noted. * Ejection Fraction = 60-65%. * No valvular pathology. Procedure Details * A complete two-dimensional transthoracic echocardiogram was performed (2D, M-mode, Doppler and color flow Doppler). Left Ventricle * The left ventricle is normal in size. * There is normal left ventricular wall thickness. * Ejection Fraction = 60-65%. * Left ventricular systolic function is normal. * No regional wall motion abnormalities noted. Right Ventricle * The right ventricle is normal size. * The right ventricular systolic function is normal as assessed by tricuspid annular plane systolic excursion (TAPSE) (normal >1.5 cm). Atria * The left atrium is mildly dilated. * Borderline right atrial enlargement. * No ASD detected; PFO is not assessed. Mitral Valve * The mitral valve anatomy is normal. * There is no mitral valve stenosis. * There is trace mitral regurgitation. Tricuspid Valve * The tricuspid valve anatomy is normal. * There is no tricuspid stenosis. * Significant tricuspid regurgitation is absent. Aortic Valve * The aortic valve is trileaflet. * The aortic valve opens well. * Aortic stenosis is absent. * No aortic regurgitation is present. Pulmonic Valve * The pulmonary valve is not well seen, but the Doppler examination is normal without significant regurgitation or stenosis. Great Vessels * The aortic root is normal size. * The pulmonary is not well visualized. Pericardium/Pleural * There is no pericardial effusion. Great Vessels * Normal inferior vena cava size and collapsability with sniff indicates a normal right atrial pressure of 3 mmHg MMode 2D Measurements and Calculations IVSd 1.0 cm IVSs 1.5 cm LVIDd 4.8 cm LVIDs 3.1 cm LVPWd 1.1 cm LVPWs 1.6 cm IVS/LVPW 0.99 FS 35.4 % EDV(Teich) 109.9 ml ESV(Teich) 38.9 ml EF(Teich) 64.6 % EDV(cubed) 113.7 ml ESV(cubed) 30.7 ml EF(cubed) 73.0 % % IVS thick 42.2 % % LVPW thick 49.7 % LV mass(C)d 185.7 grams LV mass(C)dI 79.8 grams/m\S\2 LV mass(C)s 174.4 grams LV mass(C)sI 74.9 grams/m\S\2 SV(Teich) 71.0 ml SI(Teich) 30.5 ml/m\S\2 SV(cubed) 83.0 ml SI(cubed) 35.7 ml/m\S\2 Ao root diam 2.8 cm Ao root area 6.1 cm\S\2 LA dimension 4.6 cm LA/Ao 1.7 LVAd ap4 30.6 cm\S\2 LVLd ap4 9.0 cm EDV(MOD-sp4) 84.1 ml EDV(sp4-el) 87.8 ml LVAs ap4 16.8 cm\S\2 LVLs ap4 7.5 cm ESV(MOD-sp4) 32.2 ml ESV(sp4-el) 31.7 ml EF(MOD-sp4) 61.8 % EF(sp4-el) 63.9 % LVAd ap2 36.9 cm\S\2 LVLd ap2 9.3 cm EDV(MOD-sp2) 122.1 ml EDV(sp2-el) 124.2 ml LVAs ap2 20.2 cm\S\2 LVLs ap2 7.7 cm ESV(MOD-sp2) 44.8 ml ESV(sp2-el) 45.3 ml EF(MOD-sp2) 63.3 % EF(sp2-el) 63.6 % LVLd %diff 3.1 % EDV(MOD-bp) 100.6 ml LVLs %diff 1.9 % ESV(MOD-bp) 38.0 ml EF(MOD-bp) 62.2 % SV(MOD-sp4) 52.0 ml SI(MOD-sp4) 22.3 ml/m\S\2 SV(MOD-sp2) 77.3 ml SI(MOD-sp2) 33.2 ml/m\S\2 SV(MOD-bp) 62.6 ml SI(MOD-bp) 26.9 ml/m\S\2 SV(sp4-el) 56.1 ml SI(sp4-el) 24.1 ml/m\S\2 SV(sp2-el) 78.9 ml SI(sp2-el) 33.9 ml/m\S\2 Doppler Measurements and Calculations MV E max mandy 95.4 cm/sec MV A max mandy 53.4 cm/sec MV E/A 1.8 MV dec time 0.25 sec Ao V2 max 167.6 cm/sec Ao max PG 11.2 mmHg Ao max PG (full) 3.9 mmHg LV V1 max PG 7.3 mmHg LV V1 max 135.4 cm/sec TR max mandy 306.1 cm/sec
== END | disposition home or self-care (01) ==
LOC: C.CPL 15:07
PROVIDERS: ATTEND Internal Medicine Hematology & Oncology
DX: C83.18 Mantle cell lymphoma, lymph nodes of multiple sites (principal)

== ENCOUNTER 2018-06-16 12:01 | Inpatient (IN) | payer OTHER ==
[~2018-06-16] VITALS: Ht 188 cm; Wt 100.5 kg
[~2018-06-16 12:01] MED LIST changes: -DUTA1CAP3 PO; -LISI-725 PO; +ONDA8TAB62 SL; +PRDFOPS OPB; +PROC10TA PO; +SNG10 PO
[2018-06-17] VITALS (17 sets, daily range): BP systolic 141–160; BP diastolic 81–100; PULSE 18–87; TEMP 36.4–37; O2SAT 78–100; Ht 188 cm; Wt 100.5 kg
[2018-06-17] MEDS ORDERED: MAGNESIUM HYDROXIDE SUSP 30 ML UDC PO PRN (08:30)
[2018-06-17] MEDS ORDERED: ACETAMINOPHEN 325 MG TAB PO PRN (08:30)
[2018-06-17] MEDS ORDERED: ONDANSETRON INJ 2 MG/ML 2 ML VIAL IV PRN (08:30)
[2018-06-17] MEDS ORDERED: ALUMINUM/MAGNESIUM/SIMETH (MAALOX MAX) 30 ML UDC PO PRN (08:30)
--- NOTE | 2018-06-17 08:43 | History and Physical ---
History & Physical Date & Time of Service: Jun 17, 2018 at 08:43 Chief Complaint: Chemotherapy - Mantle Cell Lymphoma Primary Care Physician: Jermaine Manning M.D. History of Present Illness Source: patient Mr. Govea is a 52 y/o male with PMHx of Mantle Cell Lymphoma, HTN (off medications), BPH (off medications), and Chronic Allergic Rhinitis who presents as a direct admission for another round of chemotherapy. Patient is receiving high dose lillie-C portion of Albin regimen. During last session patient developed intractable nausea and vomiting related to the treatment. He reports pre-medication with Benadryl and Tylenol seems to help. On last admission he was given Dexamethasone after nausea began that helped. The plan is to implement scheduled medication to prevent such a severe reaction. Will give Dexamethasone and Zofran for pre-treatment then JOSE Zofran from that point. Place orders for Benadryl and to start just prior to chemotherapy initiation. Will use Compazine PRN for breakthrough nausea. He will utilize eye drops during his treatment as well. Patient feels well overall. Reports R great toe and foot cellulitis approx. 1 month ago but currently off treatment. Reports some intermittent pain in the MTP of the R great toe but no redness or swelling at this time. This has remained stable over the past couple weaks. No worsening of symptoms. Possibly this was actually gout? He reports due to wait loss he is no longer needing anti-hypertensives and is managed off medications. He has also been D/Cd from his Dutasteride. On previous admission he had an ongoing cough but states the Abx for the foot seemed to improve the cough as well but does have chronic rhinitis. Past Medical/Surgical History Medical Problems: (1) Mantle cell lymphoma Family History Adopted Unknown due to Adoption Social History Smoking Status: Never Smoker Drug Use: none Marital Status: Housing status: lives with family Occupational Status: employed Allergies Coded Allergies: Penicillins (Verified Allergy, Intermediate, RASH, ITCHING, 03/08/18) Hydrocodone (Verified Adverse Reaction, Mild, NAUSEA AND VOMITING, 06/09/18 ) Home Medications Scheduled Fexofenadine Hcl (Eleni Allergy), 1 TAB PO QAM Fluticasone Propionate (Nasal) (Flonase Allergy Relief), 2 SPRAY NAZIA QAM Montelukast Sod (Montelukast Sodium), 10 MG PO HS Prednisolone Acetate (Prednisolone Acetate), 1 DROPS OPB QID Scheduled PRN Ibuprofen (Motrin), 400 MG PO Q6H PRN for Pain Ondansetron Odt (Zofran Odt), 8 MG SL Q6H PRN for Nausea Prochlorperazine Maleate (Compazine), 1 TAB PO Q6 PRN for Nausea or Vomiting Review of Systems Constitutional: No fever, No chills ENT: No nasal symptoms, No sore throat, No trouble swallowing Respiratory: No cough, No shortness of breath Cardiovascular: No chest pain Abdomen: No pain, No nausea, No vomiting, No diarrhea, No constipation Musculoskeletal: + joint pain (intermittent R great toe (MTP) joint pain - ongoing) Genitourinary - Male: No dysuria Hematologic / Lymphatic: No abnormal bleeding/bruising Integumentary: No rash Physical Exam Vital Signs Date Time Temp Pulse Resp B/P (MAP) Pulse Ox O2 Delivery O2 Flow Rate FiO2 06/17/18 08:19 82 16 141/98 (112) 100 General Appearance: WD/WN, no apparent distress Head: normocephalic, atraumatic Eyes: sclerae normal ENT: hearing grossly normal Neck: supple, no JVD, trachea midline Respiratory/Chest: lungs clear, normal breath sounds, no respiratory distress, no accessory muscle use Cardiovascular: regular rate, rhythm, no gallop, no murmur Abdomen/GI: normal bowel sounds, non tender, soft Extremities/Musculoskelatal: no calf tenderness, no pedal edema Neurologic/Psych: alert, oriented x 3 Skin: normal color, warm/dry, no rash Impression Assessment and Plan Mr. Govea is a 52 y/o male with PMHx of Mantle Cell Lymphoma, HTN (off medications), BPH (off medications), and Chronic Allergic Rhinitis who presents as a direct admission for another round of chemotherapy. Mantle Cell Lymphoma on Treatment: - Due for another round of high dose lillie-C portion of Albin regimen today - had intractable nausea/vomiting with last treatment and will try to prevent such a severe reaction - Will give Dexamethasone and Zofran as pretreatment. JOSE Zofran after initial dose with Compazine for breakthrough - Benadryl 25 mg IV x 1 dose as pre-treatment - Heme/Onc consultation Possible Gout: IMPROVING - Patient reports approx. 1 month ago having R great toe cellulitis - does intermittently have pain in R great toe MTP - no redness or erythema at this time HTN: Off Medications - Reports good control due to weightloss - Lisinopril has been D/C'd previously - will monitor BPH: STABLE - Reports no longer utilizing Dutasteride Chronic Allergic Rhinitis: STABLE - Eleni 180 mg daily; Flonase daily PRN; Singulair 10 mg daily PRN DVT Prophylaxis: SCDs/Ambulation Code Status: FULL Disposition: From home - no needs at this time anticipated Resuscitation Status VTE Prophylaxis Will order VTE Prophylaxis: Yes Social Service Consult Cancer Patient Under [place]
[2018-06-17] MEDS ORDERED: DEXAMETHASONE INJ 4 MG in SYRINGE 0 ML IV ONE (08:45)
[2018-06-17] MEDS ORDERED: PROCHLORPERAZINE INJ 5 MG in SYRINGE 4 ML IV PRN (08:45)
[2018-06-17] MEDS ORDERED: HYDROCORTISONE IV 100 MG in SYRINGE 0 ML IV PRN (09:30)
[2018-06-17] MEDS ORDERED: METHYLPREDNISOLONE 125 MG in SYRINGE 0 ML IV PRN (09:30)
[2018-06-17] MEDS ORDERED: DEXAMETHASONE IV SCH (10:30)
[2018-06-17] MEDS ORDERED: SODIUM CHLORIDE 0.9% IV SCH ×3 (10:30→11:30)
[2018-06-17] MEDS ORDERED: DEXTROSE 5% IV SCH (10:30)
[2018-06-17] MEDS ORDERED: ONDANSETRON IV SCH (10:30)
[2018-06-17] MEDS ORDERED: DiphenhydrAMINE HCL 50 MG/ML VIAL IV SCH (10:30)
[2018-06-17] MEDS: ENOXAPARIN 40 MG/0.4 ML SYR SQ SCH (10:54)
--- NOTE | 2018-06-17 10:55 | Oncology Consultation ---
Oncology/Heme Consultation Date of Consultation: Jun 17, 2018. Attending Physician: Derrek Ingram M.D. Reason for Consultation: Mantle cell lymphoma For chemotherapy History of Present Illness Mr. Govea is a 52 year old man with a history of mantle cell lymphoma being treated with the [place] regimen. He is admitted today for cycle 4 (cycle 2 of HiDAC). He has generally done well with chemotherapy and interval PET after cycle 3 revealed a complete metabolic response. He looks and feels great. This cycle was delayed a week, due to insurance issues, which is likely part of why he feels so well. Family History Adopted Social History Smoking Status: Never Smoker Drug Use: none Marital Status: Occupation Status: employed Allergies Coded Allergies: Penicillins (Verified Allergy, Intermediate, RASH, ITCHING, 03/08/18) Hydrocodone (Verified Adverse Reaction, Mild, NAUSEA AND VOMITING, 06/09/18 ) Home Medications Scheduled Fexofenadine Hcl (Eleni Allergy), 1 TAB PO QAM Fluticasone Propionate (Nasal) (Flonase Allergy Relief), 2 SPRAY NAZIA QAM Montelukast Sod (Montelukast Sodium), 10 MG PO HS Prednisolone Acetate (Prednisolone Acetate), 1 DROPS OPB QID Scheduled PRN Ibuprofen (Motrin), 400 MG PO Q6H PRN for Pain Ondansetron Odt (Zofran Odt), 8 MG SL Q6H PRN for Nausea Prochlorperazine Maleate (Compazine), 1 TAB PO Q6 PRN for Nausea or Vomiting Current Inpatient Medications Current Inpatient Medications Medications (Trade) Dose Ordered Sig/Nettie Route Start Time Stop Time Status Last Admin Dose Admin Enoxaparin Sodium (Lovenox Inj) 40 mg Q24H SQ 06/17/18 10:00 07/17/18 09:59 Acetaminophen (Tylenol Tab) 650 mg Q4H PRN PO 06/17/18 08:30 07/17/18 08:29 Al Hydrox/Mg Hydrox/Simethicone (Maalox Max Susp) 15 ml Q4H PRN PO 06/17/18 08:30 07/17/18 08:29 Magnesium Hydroxide (Milk Of Magnesia Susp) 30 ml Q6H PRN PO 06/17/18 08:30 07/17/18 08:29 Fexofenadine HCl (Eleni Tab) 180 mg QAM PO 06/18/18 08:00 07/18/18 07:59 Fluticasone Propionate (Flonase Nasal [place]) 2 sprays QAM NAZIA 06/18/18 08:00 07/18/18 07:59 Montelukast Sodium (Singulair Tab) 10 mg HS PO 06/17/18 21:00 07/17/18 20:59 Prednisolone Acetate (Pred Forte 1% Oph Susp) 1 drops QID OPB 06/17/18 12:00 07/17/18 11:59 Heparin Sodium (Porcine) (Heparin 100 Unit/ml 5ml Flush) 5 ml PRN PRN IV 06/17/18 08:30 07/17/18 08:29 Ondansetron HCl 8 mg/Dextrose 54 ml @ 200 mls/hr Q6H IV 06/17/18 16:30 07/17/18 16:29 Prochlorperazine Edisylate 5 mg/ Syringe 5 ml @ 5 mls/min Q4H PRN IV 06/17/18 08:45 07/17/18 08:44 Diphenhydramine HCl (Benadryl Inj) 25 mg 1030 IV 06/17/18 10:30 06/17/18 11:30 Dexamethasone Sodium Phosphate 10 mg/Sodium Chloride 51 ml @ 153 mls/hr 1030 IV 06/17/18 10:30 06/17/18 12:30 Hydrocortisone Sodium Succinate 100 mg/Syringe 2 ml @ 4 mls/min UD PRN IV 06/17/18 09:30 06/17/18 23:59 Methylprednisolone Sodium Succinate 125 mg/Syringe 2 ml @ 1.5 mls/min UD PRN IV 06/17/18 09:30 06/17/18 23:59 Cytarabine 7230 mg/Sodium Chloride 272.3 ml @ 135 mls/hr Q12H IV 06/17/18 11:30 06/19/18 01:32 Rituximab 500 mg/ Rituximab 400 mg/ Sodium Chloride 450 ml @ 50 mls/hr 1130 IV 06/17/18 11:30 06/17/18 23:59 Ondansetron HCl 16 mg/Dextrose 58 ml @ 200 mls/hr 1030 IV 06/17/18 10:30 06/17/18 12:30 Review of Systems Constitutional: No fever, No weakness, No fatigue ENT: No unusual epistaxis Respiratory: No cough, No shortness of breath Cardiovascular: No chest pain Abdomen: No pain, No nausea, No vomiting Musculoskeletal: No joint pain, No muscle pain Genitourinary - Male: No dysuria Hematologic / Lymphatic: No abnormal bleeding/bruising, No swollen lymph nodes , No night sweats Physical Exam Date Time Temp Pulse Resp B/P (MAP) Pulse Ox O2 Delivery O2 Flow Rate FiO2 06/17/18 08:19 82 16 141/98 (112) 100 General Appearance: WD/WN, no apparent distress ENT: pharynx normal Respiratory/Chest: lungs clear Cardiovascular: regular rate, rhythm Abdomen/GI: non tender, soft Extremities/Musculoskelatal: no calf tenderness, no pedal edema Neurologic/Psych: alert, oriented x 3 Skin: no rash Assessment & Plan Mr. Govea will receive his second cycle of HiDAC (cytarabine 3000 mg/m2 BID for two days). He has his prophylactic steroid eye drops and started them this morning. I also ordered IV decadron and Zofran for antiemesis. He should have PRN Zofran ordered as well. We should check daily CBCs and CMPs. If he is otherwise fine, he can go after he finishes his fourth dose. Since that will likely be late Tuesday, I anticipate discharge Tuesday AM. I will make arrangements for office follow up for him.
[2018-06-17] MEDS ORDERED: RITUXIMAB IV SCH (11:30)
[2018-06-17] MEDS ORDERED: CYTARABINE IV SCH (11:30)
[2018-06-17] MEDS: PrednisoLONE ACET 1% OP SUSP 5 ML BTL OPB SCH ×3 (12:22→20:32)
[2018-06-17] MEDS ORDERED: CLONIDINE HCL 0.1 MG TAB PO PRN (15:45)
[2018-06-17] MEDS: CYTARABINE IV SCH (16:28)
[2018-06-17] MEDS: SODIUM CHLORIDE 0.9% IV SCH (16:28)
[2018-06-17] MEDS: ONDANSETRON INJ 8 MG in DEXTROSE 5% 50ML 50 ML IV SCH (19:23)
[2018-06-17] MEDS: MONTELUKAST SOD 10 MG TAB PO SCH (20:32)
[2018-06-18] VITALS (12 sets, daily range): BP systolic 126–160; BP diastolic 77–106; PULSE 73–107; TEMP 36.6–37.4; O2SAT 97–100
[2018-06-18] MEDS: ONDANSETRON INJ 8 MG in DEXTROSE 5% 50ML 50 ML IV SCH ×4 (01:31→19:44)
[2018-06-18] MEDS: SODIUM CHLORIDE 0.9% IV SCH ×2 (03:38→15:50)
[2018-06-18] MEDS: CYTARABINE IV SCH ×2 (03:38→15:50)
[2018-06-18 03:45] LABS: HEMATOCRIT 31.7 % (42-52); HEMOGLOBIN 10.8 g/dL (14.0-18.0); MEAN CELL VOLUME 80.5 fL (80-100); MEAN CORPUSCULAR HEMOGLOBIN 27.4 pg (25-34); MEAN CORPUSCULAR HGB CONC 34.1 g/dl (32-36); PLATELET COUNT 174 K/uL (130-400); RED CELL DISTRIBUTION WIDTH CV 19.5 % (11.5-14.5); RED CELL DISTRIBUTION WIDTH SD 57.6 fL (36.4-46.3); WHITE BLOOD COUNT 13.54 K/uL (4.8-10.8)
[2018-06-18 04:01] LABS: CALCIUM 8.6 mg/dl (8.5-10.1); CREATININE 0.94 mg/dl (0.60-1.40); POTASSIUM 4.4 mmol/L (3.5-5.1)
[2018-06-18] MEDS: FEXOFENADINE HCL 180 MG TAB PO SCH (08:58)
[2018-06-18] MEDS: FLUTICASONE PROPIONATE NA SPR 16 GM BTL NAE SCH (08:59)
[2018-06-18] MEDS: PrednisoLONE ACET 1% OP SUSP 5 ML BTL OPB SCH ×4 (09:00→20:06)
--- NOTE | 2018-06-18 10:18 | HEME/ONC PROGRESS NOTE ---
DATE: 06/18/2018 DIAGNOSES: 1. High dose lillie-C (HiDAC). 2. Mantle cell lymphoma. SUBJECTIVE: Mr. Govea was seen at bedside this morning. Doing very well, received his third of 4 courses of HiDAC. He offers no complaints. Nausea has been well controlled and tolerating his diet. He is scheduled for a dose this evening and I believe tomorrow morning and then will be discharged home. Nursing offers no overnight difficulties. PHYSICAL EXAMINATION: GENERAL: He is in no acute distress. VITAL SIGNS: Current temperature 36.7, pulse 76, respiratory rate 16, blood pressure 139/82. SKIN: Without rash or lesion. HEENT: Oral mucosa without erythema or ulceration. HEART: Regular rate and rhythm. LUNGS: Clear to auscultation. ABDOMEN: Soft, nontender, nondistended. EXTREMITIES: No clubbing, cyanosis, or edema. NEUROLOGIC: Grossly intact. LABORATORY DATA: WBC count 13,540, hemoglobin 10.8, platelet count 174,000. Sodium 140, potassium 4.4, chloride 110, carbon dioxide 23, creatinine 0.94, BUN 12. IMPRESSION: 1. Mantle cell lymphoma. 2. Status post HiDAC chemotherapy as part of the [place] regimen. PLAN: Visited with Mr. Govea at bedside. He is doing well and scheduled to receive treatment tonight and again tomorrow morning. Nothing needs to be added at this juncture. Dr. Russo will return to service tomorrow to see to Mr. Govea's discharge. Thank you for assisting us in the care of this very pleasant gentleman.
[2018-06-18] MEDS: ENOXAPARIN 40 MG/0.4 ML SYR SQ SCH (10:30)
--- NOTE | 2018-06-18 16:31 | Hospitalist Progress Note ---
Hospitalist Progress Note Date of Service Jun 18, 2018. Subjective Pt evaluation today including: conversation w/ patient, physical exam, chart review, review of studies, review of inpatient medication list Patient seen and evaluated. Feels very well today. No nausea or vomiting. Due for two more doses through the day and plans on D/C tomorrow. No verbalizes complaints at this time. Constitutional: No fever, No chills Respiratory: No cough, No shortness of breath Cardiovascular: No chest pain Abdomen: No pain, No nausea, No vomiting, No diarrhea, No constipation Heme: No abnormal bleeding/bruising Medications Current Inpatient Medications Medications (Trade) Dose Ordered Sig/Nettie Route Start Time Stop Time Status Last Admin Dose Admin Enoxaparin Sodium (Lovenox Inj) 40 mg Q24H SQ 06/17/18 10:00 07/17/18 09:59 06/18/18 10:30 40 MG Acetaminophen (Tylenol Tab) 650 mg Q4H PRN PO 06/17/18 08:30 07/17/18 08:29 Al Hydrox/Mg Hydrox/Simethicone (Maalox Max Susp) 15 ml Q4H PRN PO 06/17/18 08:30 07/17/18 08:29 Magnesium Hydroxide (Milk Of Magnesia Susp) 30 ml Q6H PRN PO 06/17/18 08:30 07/17/18 08:29 Fexofenadine HCl (Eleni Tab) 180 mg QAM PO 06/18/18 08:00 07/18/18 07:59 06/18/18 08:58 180 MG Fluticasone Propionate (Flonase Nasal Atlas) 2 sprays QAM NAZIA 06/18/18 08:00 07/18/18 07:59 Montelukast Sodium (Singulair Tab) 10 mg HS PO 06/17/18 21:00 07/17/18 20:59 06/17/18 20:32 10 MG Prednisolone Acetate (Pred Forte 1% Oph Susp) 1 drops QID OPB 06/17/18 12:00 07/17/18 11:59 06/18/18 12:58 1 DROPS Heparin Sodium (Porcine) (Heparin 100 Unit/ml 5ml Flush) 5 ml PRN PRN IV 06/17/18 08:30 07/17/18 08:29 06/18/18 13:41 5 ML Ondansetron HCl 8 mg/Dextrose 54 ml @ 200 mls/hr Q6H IV 06/17/18 16:30 07/17/18 16:29 06/18/18 13:22 200 MLS/HR Prochlorperazine Edisylate 5 mg/ Syringe 5 ml @ 5 mls/min Q4H PRN IV 06/17/18 08:45 07/17/18 08:44 Cytarabine 7230 mg/Sodium Chloride 272.3 ml @ 135 mls/hr Q12H IV 06/17/18 16:00 06/19/18 13:00 06/18/18 15:50 135 MLS/HR Clonidine HCl (Catapres Tab) 0.1 mg Q12H PRN PO 06/17/18 15:45 07/17/18 15:44 Objective Vital Signs Date Time Temp Pulse Resp B/P (MAP) Pulse Ox O2 Delivery O2 Flow Rate FiO2 06/18/18 16:15 92 18 126/81 (96) 98 06/18/18 15:39 87 16 134/78 (96) 98 06/18/18 11:23 37.0 73 16 153/80 (104) 100 06/18/18 09:45 97 Room Air 06/18/18 05:52 36.7 76 16 139/82 (101) 98 Room Air 06/18/18 04:58 36.8 81 16 142/89 (106) 98 Room Air 06/18/18 03:38 36.7 77 16 149/80 (103) 98 Room Air 06/17/18 22:48 37.0 65 16 142/81 (101) 98 Room Air 06/17/18 20:10 Room Air 06/17/18 19:18 36.6 78 16 153/89 (110) 97 Room Air 06/17/18 19:15 36.8 85 16 150/89 (109) 98 06/17/18 18:30 36.8 83 18 153/90 (111) 98 Room Air 06/17/18 18:00 36.5 81 16 160/89 (112) Room Air 06/17/18 17:30 36.5 81 16 151/94 (113) 98 Room Air 06/17/18 17:00 81 16 155/90 (111) 06/17/18 16:29 36.5 83 16 145/88 (107) Room Air Physical Exam General Appearance: WD/WN, no apparent distress Eyes: sclerae normal ENT: hearing grossly normal Neck: supple, no JVD, trachea midline Respiratory/Chest: lungs clear, normal breath sounds, no respiratory distress, no accessory muscle use Cardiovascular: regular rate, rhythm, no gallop, no murmur Abdomen: normal bowel sounds, non tender, soft Extremities: no pedal edema Neurologic/Psychiatric: alert, oriented x 3 Skin: normal color, warm/dry Laboratory Results Last 24 Hours Test 06/18/18 03:37 White Blood Count 13.54 K/uL Red Blood Count 3.94 M/uL Hemoglobin 10.8 g/dL Hematocrit 31.7 % Mean Corpuscular Volume 80.5 fL Mean Corpuscular Hemoglobin 27.4 pg Mean Corpuscular Hemoglobin Concent 34.1 g/dl RDW Standard Deviation 57.6 fL RDW Coefficient of Variation 19.5 % Platelet Count 174 K/uL Mean Platelet Volume 8.0 fL Sodium Level 140 mmol/L Potassium Level 4.4 mmol/L Chloride Level 110 mmol/L Carbon Dioxide Level 23 mmol/L Anion Gap 7.0 mmol/L Blood Urea Nitrogen 12 mg/dl Creatinine 0.94 mg/dl Est Creatinine Clear Calc Drug Dose 116.2 ml/min Estimated GFR () 107.6 Estimated GFR (Non- 92.8 BUN/Creatinine Ratio 12.4 Random Glucose 112 mg/dl Calcium Level 8.6 mg/dl Assessment and Plan Mr. Govea is a 52 y/o male with PMHx of Mantle Cell Lymphoma, HTN (off medications), BPH (off medications), and Chronic Allergic Rhinitis who presents as a direct admission for another round of chemotherapy. Mantle Cell Lymphoma on Treatment: - Continuing treatment today - should finish course by early tomorrow morning - no N/V and doing a lot better with NETTIE prevention compared to previous admission - Continue scheduled anti-emetics with PRNs for breakthrough - Heme/Onc consultation - appreciate input Possible Gout: IMPROVING - Patient reports approx. 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
[2018-06-18] MEDS: MONTELUKAST SOD 10 MG TAB PO SCH (20:06)
[2018-06-19] MEDS: ONDANSETRON INJ 8 MG in DEXTROSE 5% 50ML 50 ML IV SCH ×2 (01:19→08:50)
[2018-06-19 03:46] VITALS: BP 126/68; PULSE 98; TEMP 37.1; O2SAT 98
[2018-06-19] MEDS: CYTARABINE IV SCH (03:47)
[2018-06-19] MEDS: SODIUM CHLORIDE 0.9% IV SCH (03:47)
[2018-06-19 04:56] VITALS: BP 123/67; PULSE 100; TEMP 37; O2SAT 97
[2018-06-19 05:58] VITALS: BP 118/74; PULSE 97; TEMP 37.2; O2SAT 97
[2018-06-19 07:32] VITALS: BP 124/72; PULSE 103; TEMP 37.1; O2SAT 97
[2018-06-19] MEDS: PrednisoLONE ACET 1% OP SUSP 5 ML BTL OPB SCH (07:43)
[2018-06-19] MEDS: FEXOFENADINE HCL 180 MG TAB PO SCH (08:49)
[2018-06-19] MEDS: FLUTICASONE PROPIONATE NA SPR 16 GM BTL NAE SCH (08:49)
[2018-06-19 09:22] VITALS: BP 124/72; PULSE 103; TEMP 37.1; O2SAT 97
--- NOTE | 2018-06-19 09:25 | Discharge Instructions ---
Discharge Instructions Date of Service Jun 19, 2018. Admission Reason for Admission: Chemotherapy - Mantle Cell Lymphoma Discharge Discharge Diagnosis / Problem: Chemotherapy for Mantle Cell Lymphoma Discharge Goals Goal(s): Decrease discomfort, Improve disease control Activity Recommendations Activity Limitations: resume your previous activity . Instructions / Follow-Up Instructions / Follow-Up Followup with PCP and Hem/onc in next 1-2 weeks. Current Hospital Diet Patient's current hospital diet: Regular Diet Discharge Diet Recommended Diet: Regular Diet Pending Studies Studies pending at discharge: no Medical Emergencies . Who to Call and When: Medical Emergencies: If at any time you feel your situation is an emergency, please call 911 immediately. . Non-Emergent Contact Non-Emergency issues call your: Primary Care Provider, Oncologist Call Non-Emergent contact if: you have a fever, you have any medication questions . . "Provider Documentation" section prepared by Froilan Garcia. .
--- NOTE | 2018-06-19 09:26 | Discharge Summary ---
Discharge Summary Date of Service Jun 19, 2018. Discharge Summary Admission Date: Jun 17, 2018 at 07:37 Discharge Date: Jun 19, 2018 Discharge Disposition: Home Principal Diagnosis: Mantle Cell Lymphoma Medication Reconciliation Continued Medications: Fexofenadine Hcl (Eleni Allergy) 180 Mg Tab 1 TAB PO QAM Fluticasone Propionate (Nasal) (Flonase Allergy Relief) 50 Mcg/Act Spr 2 SPRAY NAZIA QAM Ibuprofen (Motrin) 400 Mg Tab 400 MG PO Q6H PRN for Pain, TAB Montelukast Sod (Montelukast Sodium) 10 Mg Tab 10 MG PO HS, #30 TAB 2 Refills for allergies/sinus Ondansetron Odt (Zofran Odt) 8 Mg Soltab 8 MG SL Q6H PRN for Nausea, #20 TAB 0 Refills Prednisolone Acetate (Prednisolone Acetate) 75 Drops/5 Ml Susp 1 DROPS OPB QID for 7 Days, #1 BTL 0 Refills Prochlorperazine Maleate (Compazine) 10 Mg Tab 1 TAB PO Q6 PRN for Nausea or Vomiting for 7 Days, #30 TAB 0 Refills Discharge Exam Physical Exam General Appearance: WD/WN, no apparent distress Eyes: sclerae normal ENT: hearing grossly normal Neck: supple, no JVD, trachea midline Respiratory/Chest: lungs clear, normal breath sounds, no respiratory distress, no accessory muscle use Cardiovascular: regular rate, rhythm, no gallop, no murmur Abdomen: normal bowel sounds, non tender, soft Extremities: no pedal edema Neurologic/Psychiatric: alert, oriented x 3 Skin: normal color, warm/dry Review of Systems: Constitutional: No fever Eyes: No worsening of vision Respiratory: No cough Cardiovascular: No chest pain Abdomen: No pain Neurologic: No memory loss Integumentary: No rash Hospital Course HPI: Mr. Govea is a 52 y/o male with PMHx of Mantle Cell Lymphoma, HTN (off medications), BPH (off medications), and Chronic Allergic Rhinitis who presents as a direct admission for another round of chemotherapy. Patient is receiving high dose lillie-C portion of Perrin regimen. During last session patient developed intractable nausea and vomiting related to the treatment. He reports pre-medication with Benadryl and Tylenol seems to help. On last admission he was given Dexamethasone after nausea began that helped. The plan is to implement scheduled medication to prevent such a severe reaction. Will give Dexamethasone and Zofran for pre-treatment then JOSE Zofran from that point. Place orders for Benadryl and to start just prior to chemotherapy initiation. Will use Compazine PRN for breakthrough nausea. He will utilize eye drops during his treatment as well. Patient feels well overall. Reports R great toe and foot cellulitis approx. 1 month ago but currently off treatment. Reports some intermittent pain in the MTP of the R great toe but no redness or swelling at this time. This has remained stable over the past couple weaks. No worsening of symptoms. Possibly this was actually gout? He reports due to wait loss he is no longer needing anti-hypertensives and is managed off medications. He has also been D/Cd from his Dutasteride. On previous admission he had an ongoing cough but states the Abx for the foot seemed to improve the cough as well but does have chronic rhinitis. HOSPITAL COURSE: Mr. Govea is a 52 y/o male with PMHx of Mantle Cell Lymphoma, HTN (off medications), BPH (off medications), and Chronic Allergic Rhinitis who presents as a direct admission for another round of chemotherapy. Mantle Cell Lymphoma on Treatment: - PATIENT TOLERATED TREATMENT DURING HOSPITAL STAY- no N/V and doing a lot better with JOSE prevention compared to previous admission - Continue scheduled anti-emetics with PRNs for breakthrough - Heme/Onc consultation - appreciate input Possible Gout: IMPROVING - Patient reports approx. 1 month ago having R great toe cellulitis - does intermittently have pain in R great toe MTP - no redness or erythema at this time HTN: Off Medications - Reports good control due to weight loss - Lisinopril has been D/C'd previously - will monitor BPH: STABLE - Reports no longer utilizing Dutasteride Chronic Allergic Rhinitis: STABLE - Eleni 180 mg daily; Flonase daily PRN; Singulair 10 mg daily PRN DVT Prophylaxis: SCDs/Ambulation Code Status: FULL Disposition: Will f/u with PCP and Hem/Onc as an outpatient. Patient will have port de-accessed on discharge, Total Time Spent: Greater than 30 minutes This includes examination of the patient, discharge planning, medication reconciliation, and communication with other providers. Discharge Instructions Please refer to the electronic Patient Visit Report (Discharge Instructions) for additional information. Follow-Up As noted on discharge instructions Additional Copies To Dani Russo MD; Jermaine Manning M.D.
== END 2018-06-19 10:15 | disposition home or self-care (01) | DRG 847 ==
LOC: C.4E 06-17 07:37
PROVIDERS: ADMIT Internal Medicine; ATTEND Internal Medicine Sports Medicine
DX: Z51.11 Encounter for antineoplastic chemotherapy (principal); C83.10 Mantle cell lymphoma, unspecified site; M10.9 Gout, unspecified; J30.9 Allergic rhinitis, unspecified; Z88.0 Allergy status to penicillin; Z88.5 Allergy status to narcotic agent; Z79.899 Other long term (current) drug therapy

== ENCOUNTER → 2018-06-17 | Outpatient (CLI) | payer OTHER ==
[2018-06-17 08:09] LABS: BASO % 2.2 %; BASO ABS # 0.18 K/uL (0-0.2); EOS % 8.7 %; EOS ABS # 0.72 K/uL (0-0.5); HEMATOCRIT 32.4 % (42-52); IG# 0.18 K/uL (0.00-0.02); LYMPH % 8.8 %; LYMPH ABS # 0.73 K/uL (1.2-3.4); MEAN CELL VOLUME 80.6 fL (80-100); MEAN CORPUSCULAR HEMOGLOBIN 27.4 pg (25-34); MEAN PLATELET VOLUME 8.2 fL (7.4-10.4); MONO % 9.9 %; MONO ABS # 0.82 K/uL (0.11-0.59); NEUT % 68.2 %; NEUT ABS # 5.64 K/uL (1.4-6.5); PLATELET COUNT 158 K/uL (130-400); RED CELL DISTRIBUTION WIDTH CV 19.9 % (11.5-14.5); RED CELL DISTRIBUTION WIDTH SD 59.4 fL (36.4-46.3); WHITE BLOOD COUNT 8.27 K/uL (4.8-10.8)
[2018-06-17 08:32] LABS: ALBUMIN 3.6 gm/dl (3.4-5.0); BLOOD UREA NITROGEN 11 mg/dl (7-18); CALCIUM 8.8 mg/dl (8.5-10.1); CARBON DIOXIDE 24 mmol/L (21-32); CREATININE 0.86 mg/dl (0.60-1.40); GLUCOSE 90 mg/dl (70-99); POTASSIUM 4.1 mmol/L (3.5-5.1); SODIUM 141 mmol/L (136-145)
[2018-06-17 08:34] LABS: ALKALINE PHOSPHATASE 130 U/L (45-117); ALT/SGPT 28 U/L (12-78); AST/SGOT 26 U/L (15-37); TOTAL PROTEIN 7.1 gm/dl (6.4-8.2)
== END | disposition home or self-care (01) ==
LOC: C.LAB 07:43
PROVIDERS: ATTEND Internal Medicine Hematology & Oncology
DX: C83.18 Mantle cell lymphoma, lymph nodes of multiple sites (principal)

== ENCOUNTER 2022-01-08 18:17 | Inpatient (IN) ==
[2022-01-08] MEDS ORDERED: dexAMETHasone**PF** 10 MG/ML VIAL IV ONE (18:48)
--- NOTE | 2022-01-08 18:52 | Emergency Department Note ---
History of Present Illness General Chief complaint: Respiratory Problems Stated complaint: COVID +, SOB, OXYGEN LEVEL LOW Time Seen by Provider: 01/08/22 18:39 Source: patient History of Present Illness Provider complaint: Shortness of breath Onset (ago): day(s) Location: chest Pain Consistency: + constant Quality: + other Exacerbated By: + other (Coughing) Associated symptoms: + cough, + fever/chills, + malaise, + rash and + shortness of breath; no chest pain or no nausea/vomiting This is a 56-year-old male who presents with cough and cold symptoms starting 11 days ago. The patient developed a cough and stated coughing made him short of breath. He also had a fever and diarrhea with malaise. He denies any loss of taste or smell. He denies any chest discomfort or pain. He also developed a rash consistent with shingles on his flank. He is not vaccinated for COVID because he has a history of cancer and was undergoing chemotherapy. He wanted to finish his treatment before he got the vaccination. He denies any leg swelling or pain. He states that his fever has gone away. He has persistently has a cough and noted that his O2 saturation was low at home so he came in. He did see Dr. Mckinney today via telehealth who confirmed that he had shingles. He did take a home Covid test which was positive. Home Medications Medication Instructions Recorded Confirmed Type fexofenadine 180 mg tablet 180 mg PO DAILY PRN 07/12/19 10/06/21 History (Eleni Allergy) ibuprofen 200 mg tablet (Motrin IB) 400 mg PO DAILY tab 10/06/21 10/06/21 History allopurinol 100 mg tablet 100 mg PO DAILY #30 tab 10/30/21 Rx doxycycline hyclate 100 mg capsule 100 mg PO BID 10 Days #20 cap 12/28/21 Rx benzonatate 200 mg capsule 200 mg PO TID PRN #30 cap 01/04/22 Rx gabapentin 300 mg capsule 300 mg PO BID #60 cap 01/08/22 01/08/22 Rx Allergies Allergy/AdvReac Type Severity Reaction Status Date / Time Penicillins Allergy Intermediate RASH, Verified 10/06/21 11:00 ITCHING hydrocodone AdvReac Mild NAUSEA AND Verified 10/06/21 11:00 VOMITING Past Med/Surg History Medical History Allergic rhinitis Benign prostatic hyperplasia Gout Hypertension Nausea and vomiting after administration of anesthetic agent Surgical History History of autologous stem cell transplant (10/2018) History of hand surgery RIGHT 5 YRS AGO History of lymph node biopsy (02/2018) Cervical History of prostate surgery TURP History of sinus surgery (07/20/19) Revision L max antrostomy, Revision L complete ethmoidectoy Family History Mother Breast cancer Father Hodgkins disease Sister Diabetes Denies family history of Clotting disorder Social History Smoking Status: Never smoker Second Hand Exposure: No; Hx Alcohol Use: Yes Alcohol type: beer Alcohol Intake Frequency: Monthly or Less Hx Substance Use: No Preferred Language: Luxembourgish Communication Ability: Effective [employer] Head Inspector Required: No Beliefs That Will Affect Care: None marital status: Current Living Situation: Spouse current occupational status: employed current occupation: Self employed fuel truck driver Feels Safe at Home: Yes Dental Care, Regularly: Yes Physical Activity Frequency: Daily Seatbelt Use: always Sunscreen Use: No Assistive Devices: Glasses Review of Systems See HPI for pertinent positives & negatives. and A total of 10 systems reviewed and were otherwise negative Physical Exam Vital Signs Vital Signs - 24 hr 01/08/22 18:31 01/08/22 18:36 01/08/22 18:51 Temperature 36.8 C Temperature Source Temporal Artery Scan Pulse Rate 121 H Pulse Rate [Apical] Pulse Rhythm Respiratory Rate 30 H 36 H Respiratory Effort / Characteristics Labored Blood Pressure 171/82 H Blood Pressure [Left Arm] Blood Pressure Mean 111 Blood Pressure Mean [Left Arm] Blood Pressure Position Sitting Pulse Oximetry 83 L 83 L 97 Oxygen Delivery Method Room Air Room Air Nasal Cannula Oxygen Flow Rate Sepsis Recent Fever Within 48 Hours No Sepsis New/Unexplained Change in Mental Status No Sepsis Action Taken by Nursing No Action Required Oxygen Flow Rate - Titration 3 01/08/22 19:43 01/08/22 19:44 01/08/22 19:45 Temperature Temperature Source Pulse Rate 101 H Pulse Rate [Apical] 99 H Pulse Rhythm Regular Respiratory Rate 22 37 H Respiratory Effort / Characteristics Blood Pressure Blood Pressure [Left Arm] 153/93 H Blood Pressure Mean Blood Pressure Mean [Left Arm] 113 Blood Pressure Position Pulse Oximetry 93 93 100 Oxygen Delivery Method Nasal Cannula Nasal Cannula Nasal Cannula Oxygen Flow Rate 4 4 Sepsis Recent Fever Within 48 Hours Sepsis New/Unexplained Change in Mental Status Sepsis Action Taken by Nursing Oxygen Flow Rate - Titration 01/08/22 19:51 Temperature Temperature Source Pulse Rate Pulse Rate [Apical] Pulse Rhythm Respiratory Rate Respiratory Effort / Characteristics Blood Pressure Blood Pressure [Left Arm] Blood Pressure Mean Blood Pressure Mean [Left Arm] Blood Pressure Position Pulse Oximetry 90 Oxygen Delivery Method Nasal Cannula Oxygen Flow Rate 4 Sepsis Recent Fever Within 48 Hours Sepsis New/Unexplained Change in Mental Status Sepsis Action Taken by Nursing Oxygen Flow Rate - Titration Constitutional: Vital signs reviewed. Hypoxemic. Eyes: Pupils are equal round reactive to light. Conjunctiva are noninjected. ENT: Pharynx is clear without erythema or exudate. Mucous membranes are moist. Neck supple without meningeal signs. Respiratory: Crackles bilaterally. Breath sounds are equal bilaterally. Cardiovascular: Tachycardic. Heart rate 106. GI: Soft, nondistended and nontender. Bowel sounds are present. Musculoskeletal: No peripheral edema. No lower extremity tenderness. Integumentary: Erythematous papular rash in a single dermatomal distribution on the left flank. Neurological: The patient is awake and alert. No focal deficits. Psychiatric: Normal affect. Not anxious appearing. Course Administered Medications Discontinued Medications Dexamethasone Sodium Phosphate (DexamethasonePf 10 Mg/Ml Vial) 6 mg IV NOW ONE Stop: 01/08/22 18:49 Last Admin: 01/08/22 19:46 Dose: 6 mg Documented by: [id number] Critical Care Time Critical Care Time: Yes Total Critical Care Time: 35 I have personally spent approximately 35 minutes of critical care time in the direct management of this patient. This includes bedside care, interpretation of diagnostic studies, and testing, discussion with consultants, patient, and family members, and other required patient management activities. These minutes are in excess of all separately billable procedures. Medical Decision Making Differential Diagnosis COVID-19, multifocal pneumonia, pulmonary embolism, hypoxemia, respiratory arrest Medical Records Attestation: I reviewed the patient's medical records. I did perform a limited focused review of portions of the patient's old chart on the electronic medical record. The patient was treated 2 months ago at [facility] for mantle cell lymphoma. The patient was seen via telehealth by Dr. Mckinney today who diagnosed him with shingles and Covid. Home Medications Current Medication List: was personally reviewed by me Laboratory Data Attestation: I reviewed the patient's lab results. Result diagrams: 01/08/22 18:48 01/08/22 18:48 Lab Results 01/08/22 01/08/22 01/08/22 Range/Units 18:48 18:48 18:48 WBC 3.87 L (4.8-10.8) K/uL RBC 4.19 L (4.7-6.1) M/uL Hgb 12.6 L (14.0-18.0) g/dL Hct 35.7 L (42-52) % MCV 85.2 (80-100) fL MCH 30.1 (25-34) pg MCHC 35.3 (32-36) g/dL RDW Std Deviation 44.7 (36.4-46.3) fL RDW Coeff of Aly 14.4 (11.5-14.5) % Plt Count 118 L (130-400) K/uL MPV 9.0 (7.4-10.4) fL Immature Gran % (Auto) 0.0 % Neut % (Auto) 92.0 % Lymph % (Auto) 5.7 % Floyd % (Auto) 2.3 % Eos % (Auto) 0.0 % Baso % (Auto) 0.0 % Neut # (Auto) 3.56 (1.4-6.5) K/uL Lymph # (Auto) 0.22 L (1.2-3.4) K/uL Floyd # (Auto) 0.09 L (0.11-0.59) K/uL Eos # (Auto) 0.00 (0-0.5) K/uL Baso # (Auto) 0.00 (0-0.2) K/uL Immature Gran # (Auto) 0.00 (0.00-0.02) K/uL Echinocytes 1+ PT 11.2 (9.0-12.0) Seconds INR 1.1 (0.9-1.1) APTT 33.5 H (21.0-31.0) Seconds PTT Ratio 1.3 D-Dimer 1610 H* (0-500) ug/L FEU Sodium 135 L (136-145) mmol/L Potassium 3.5 (3.5-5.1) mmol/L Chloride 104 (98-107) mmol/L Carbon Dioxide 22 (21-32) mmol/L Anion Gap 9 (3-11) BUN 24 H (6-23) mg/dl Creatinine 1.00 (0.6-1.4) mg/dl Est Cr Clr Drug Dosing 113.6 ml/min Est GFR ( Amer) 97.1 ml/min Est GFR (Non-Af Amer) 83.8 ml/min BUN/Creatinine Ratio 24.0 H (10-20) Glucose 100 H (70-99(Fasting)) mg/dl Calcium 8.1 L (8.5-10.1) mg/dl Magnesium 2.0 (1.7-2.4) mg/dl Total Bilirubin 0.8 (0.2-1.0) mg/dl AST 84 H (13-39) U/L ALT 78 H (7-52) U/L Alkaline Phosphatase 131 H (34-104) U/L Troponin I 0.04 (0-0.04) ng/ml C-Reactive Protein 26.62 H (0-0.5) mg/dl Total Protein 5.5 L (6.0-8.3) gm/dl Albumin 3.2 L (3.4-5.0) gm/dl Globulin 2.3 L (2.5-4.0) gm/dl Albumin/Globulin Ratio 1.4 (0.9-2) SARS-CoV-2, RNA, NAAT (NEGATIVE) 01/08/22 Range/Units 19:42 WBC (4.8-10.8) K/uL RBC (4.7-6.1) M/uL Hgb (14.0-18.0) g/dL Hct (42-52) % MCV (80-100) fL MCH (25-34) pg MCHC (32-36) g/dL RDW Std Deviation (36.4-46.3) fL RDW Coeff of Aly (11.5-14.5) % Plt Count (130-400) K/uL MPV (7.4-10.4) fL Immature Gran % (Auto) % Neut % (Auto) % Lymph % (Auto) % Floyd % (Auto) % Eos % (Auto) % Baso % (Auto) % Neut # (Auto) (1.4-6.5) K/uL Lymph # (Auto) (1.2-3.4) K/uL Floyd # (Auto) (0.11-0.59) K/uL Eos # (Auto) (0-0.5) K/uL Baso # (Auto) (0-0.2) K/uL Immature Gran # (Auto) (0.00-0.02) K/uL Echinocytes PT (9.0-12.0) Seconds INR (0.9-1.1) APTT (21.0-31.0) Seconds PTT Ratio D-Dimer (0-500) ug/L FEU Sodium (136-145) mmol/L Potassium (3.5-5.1) mmol/L Chloride (98-107) mmol/L Carbon Dioxide (21-32) mmol/L Anion Gap (3-11) BUN (6-23) mg/dl Creatinine (0.6-1.4) mg/dl Est Cr Clr Drug Dosing ml/min Est GFR ( Amer) ml/min Est GFR (Non-Af Amer) ml/min BUN/Creatinine Ratio (10-20) Glucose (70-99(Fasting)) mg/dl Calcium (8.5-10.1) mg/dl Magnesium (1.7-2.4) mg/dl Total Bilirubin (0.2-1.0) mg/dl AST (13-39) U/L ALT (7-52) U/L Alkaline Phosphatase (34-104) U/L Troponin I (0-0.04) ng/ml C-Reactive Protein (0-0.5) mg/dl Total Protein (6.0-8.3) gm/dl Albumin (3.4-5.0) gm/dl Globulin (2.5-4.0) gm/dl Albumin/Globulin Ratio (0.9-2) SARS-CoV-2, RNA, NAAT POSITIVE A* (NEGATIVE) Imaging Data Radiologist's Impression: Chest X-Ray 01/08/22 18:35 XR chest 1V portable HISTORY: 56 years-old Male SOB acute shortness of breath with cough COMPARISON: Chest CT 07/17/2021, chest radiograph 03/08/2018 TECHNIQUE: Portable AP view of the chest FINDINGS: Cardiac silhouette is enlarged. Unchanged positioning of the left subclavian [id number] catheter. No pneumothorax or large pleural effusion. Mild blunting of the costophrenic angles. Multifocal alveolar opacities are noted bilaterally. Bones appear grossly intact. Degenerative changes of the shoulders and spine. IMPRESSION: Extensive bilateral airspace opacities are suggestive of multifocal pneumonia. ACT 112: Negative or not required by law. The above report was generated using voice recognition software. It may contain grammatical, syntax or spelling errors. Electronically signed by: Lyle Lunsford M.D. 01/08/2022 7:26 PM ECG Data Attestation: I personally reviewed and interpreted this ECG as follows: Indication: + SOB/dyspnea Rate (beats per minute): 116 Rhythm: + sinus tachycardia ECG [place]: + Normal ECG ST segments: no ST elevation ECG Findings: + PACs MDM Narrative I did evaluate the patient as noted above. The patient is presenting with symptoms of COVID-19 with hypoxemia. He was placed on supplemental oxygen. Is placed in respiratory isolation. A confirmation Covid test was obtained and was positive. IV access was established. I did treat him with Decadron [address] an order for continuous cardiac monitoring. The monitor showed sinus tachycardia at a rate of 102 bpm.I did order and personally review the patient's 12-lead EKG as described above. He has no evidence of acute ischemia. I did order and personally reviewed the images of the patient's chest x-ray as described above. He has extensive bilateral infiltrates consistent with multifocal pneumonia. I did order and review the patient's blood work as noted in the electronic medical record. CBC demonstrates pancytopenia with a white count of 3.8, hemoglobin 12.6 and a platelet count of 118. D-dimer is elevated 1610. Electrolytes show sodium 135 and a calcium of 8.1. AST and ALT are elev ated at 84 and 78 respectively. C-reactive protein is 26.6. I did reassess the patient. His O2 saturation is 93% on 4 L. I did discuss the test results with the patient. He will be hospitalized for further care and evaluation. The case was discussed with the medical case manager and the hospitalist was informed. Impression & Plan Multifocal pneumonia, Hypoxemia, Pneumonia due to 2019 novel coronavirus, Pancytopenia, Abnormal LFTs, Hypocalcemia Discharge Plan Visit Data Chief Complaint: Respiratory Problems Stated Complaint: COVID +, SOB, OXYGEN LEVEL LOW ED Provider: Derrek Hobbs Discharge Problem: Multifocal pneumonia, Hypoxemia, Pneumonia due to 2019 novel coronavirus, Pancytopenia, Abnormal LFTs, Hypocalcemia Patient Disposition: Being Evaluated by Hospitalist Forms Stand Alone Forms: [facility] Prescriptions Prescriptions: No Action allopurinol 100 mg tablet 100 mg PO DAILY Qty: 30 RF: 2 doxycycline hyclate 100 mg capsule 100 mg PO BID 10 Days Qty: 20 RF: 0 benzonatate 200 mg capsule 200 mg PO TID PRN (Reason: cough) Qty: 30 RF: 0 gabapentin 300 mg capsule 300 mg PO BID Qty: 60 RF: 2 ibuprofen [Motrin IB] 200 mg tablet 400 mg PO DAILY RF: 0 fexofenadine [Eleni Allergy] 180 mg Tablet 180 mg PO DAILY PRN (Reason: Allergic Symptoms) RF: 0 Referrals Referrals: Elizabeth Rose DO [Primary Care Provider] -
--- NOTE | 2022-01-08 19:27 | XRay Report ---
XR chest 1V portable HISTORY: 56 years-old Male SOB acute shortness of breath with cough COMPARISON: Chest CT 07/17/2021, chest radiograph 03/08/2018 TECHNIQUE: Portable AP view of the chest FINDINGS: Cardiac silhouette is enlarged. Unchanged positioning of the left subclavian [id number]-u-[id number] catheter. No pneumothorax or large pleural effusion. Mild blunting of the costophrenic angles. Multifocal alveo lar opacities are noted bilaterally. Bones appear grossly intact. Degenerative changes of the shoulde rs and spine. IMPRESSION: Extensive bilateral airspace opacities are suggestive of multifocal pneumonia. ACT 112: Negative or not required by law. The above report was generated using voice recognition software. It may contain grammatical, syntax o r spelling errors. Electronically signed by: Lyle Lunsford M.D. 01/08/2022 7:26 PM
[2022-01-08 19:37] LABS: Hematocrit (blood only) 35.7 % (42-52); Hemoglobin 12.6 g/dL (14.0-18.0); Mean Corpuscular Hemoglobin 30.1 pg (25-34); Mean Corpuscular Hgb Conc 35.3 g/dL (32-36); Mean Corpuscular Volume 85.2 fL (80-100); Platelet Count 118 K/uL (130-400); RDW Coefficient of Variation 14.4 % (11.5-14.5); RDW Standard Deviation 44.7 fL (36.4-46.3); Red Blood Count 4.19 M/uL (4.7-6.1); White Blood Count 3.87 K/uL (4.8-10.8)
[2022-01-08 19:55] LABS: Echinocytes 1+; Lymphocytes # (auto) 0.22 K/uL (1.2-3.4); Lymphocytes % (auto) 5.7 %; Monocytes # (auto) 0.09 K/uL (0.11-0.59); Monocytes % (auto) 2.3 %; Neutrophils # (auto) 3.56 K/uL (1.4-6.5)
[2022-01-08 19:58] LABS: INR 1.1 (0.9-1.1); Partial Thromboplastin Ratio 1.3; Partial Thromboplastin Time 33.5 Seconds (21.0-31.0); Prothrombin Time 11.2 Seconds (9.0-12.0)
[2022-01-08 20:00] LABS: Albumin Globulin Ratio 1.4 (0.9-2); Albumin Level 3.2 gm/dl (3.4-5.0); Bilirubin,Total 0.8 mg/dl (0.2-1.0); C Reactive Protein 26.62 mg/dl (0-0.5); Calcium 8.1 mg/dl (8.5-10.1); Creatinine Clr Calc Pharmacy 113.6 ml/min; Est GFR (African American) 97.1 ml/min; Est GFR (Non-African American) 83.8 ml/min; Globulin 2.3 gm/dl (2.5-4.0); Potassium 3.5 mmol/L (3.5-5.1); Total Protein 5.5 gm/dl (6.0-8.3); Troponin I 0.04 ng/ml (0-0.04)
[2022-01-08 20:06] LABS: D Dimer 1610 ug/L FEU (0-500)
--- NOTE | 2022-01-08 20:49 | History & Physical Report ---
Date of Service January 08, 2022 Assessment & Plan (1) Acute respiratory failure with hypoxia: (2) Mantle cell lymphoma: (3) Multifocal pneumonia: (4) COVID-19: (5) Shingles: (6) Hypertension: Plan: 56-year-old male past medical history significant for hypertension, mantle cell lymphoma s/p last cycle of maintenance Rituxan in October 2021 admitted for acute hypoxic respiratory failure secondary to COVID-19 pneumonia and also noted to have active shingles skin infection. Also noted to develop AFib RVR while in ER. Acute hypoxic respiratory failure, COVID-19 pneumonia: -Presented to the ER with worsening shortness of breath in the setting of 9 days of URI symptoms, with home COVID-19 test positive on 12/31. -In the ER noted to be hypoxic to 83% on room air, improved to 94% on 4LNC. However, with some breathlessness while giving history. -Wean oxygen as tolerated with goal SpO2 of 92%. -CXR with multifocal pneumonia. -Procalcitonin and CRP elevated. D-dimer elevated. -CTA Chest performed which showed no evidence of central pulmonary embolism, h owever limited evaluation of the pulmonary artery due to respiratory motion artifact. -Will start dexamethasone (day 11/30) and remdesivir (day 11/25) daily. -We will trend CRP daily; consider baricitinib if meets criteria within 72 hours of admission. -We will start vancomycin/aztreonam for bacterial pneumonia coverage given relatively immunocompromised status, elevated procalcitonin, post-obstructive findings on CT Chest. MRSA nares ordered; stop vanc if negative. -Blood and sputum cultures ordered. AFib with RVR: -No known history of AFib on chart. -With HR as high as 169 in ER, EKG showed AFib with RVR. Patient asymptomatic and hemodynamically stable. -Presentation may be due to current illness as opposed to a chronic issue that was not revealed until now. -Will give Lopressor 5mg IV x1 with metoprolol tartrate 25mg PO now. -Consider diltiazem pushes/gtt if still with elevated HR despite beta jamison. -Will start Lovenox 1mg/kg SQ BID for now for anticoagulation. -Will replete potassium with K Riders 40meq IV, KCl 20meq PO. -Echo to be done in the AM. -Telemetry for cardiac monitoring. Herpes zoster: -7 days of rash symptoms; continuing to have pain and new lesions. -Will start valacyclovir 1000mg TID x7 days for shingles. -Isolation precautions ordered. Hx mantle cell lymphoma: -Diagnosed 01/31/2018 with stage III mantle cell lymphoma. -S/p autologous stem cell transplant and now s/p 3 years of maintenance rituximab, completed in October 2021. HTN: -History of, not on home medications. -BP in ER 150s/80s. Will hold off on medications at this time especially in the setting of AFib RVR in the event that he requires more medications for rate control. Code Status: FULL CODE FEN: Low sodium diet DVT ppx: Lovenox 1mg/kg BID (with ppx for COVID-19, and anticoagulation for AFib) Dispo: Med/Surg with Telemetry for now, escalate to Tele if cannot achieve rate control without gtt medications History of Present Illness Chief Complaint: Shortness of breath Primary Care Provider: Elizabeth Rose DO 56-year-old male past medical history significant for hypertension, mantle cell lymphoma s/p last cycle of maintenance Rituxan in October 2021 presented to the ER for worsening shortness of breath and noted hypoxia at home after having a virtual visit today with his PCP office for ongoing symptoms. He notes that he tested positive with a home test for COVID-19 on 12/31, and he started having symptoms the day prior. Since then he has had off-and-on fevers, chills, general malaise. Over the last 2 days or so he has noted an increased dyspnea on exertion, and today he was having dyspnea even with speaking in sentences when talking to his PCP during visit. He was advised to go to the ER for ongoing symptoms especially of his hypoxia on pulse ox were to worsen. In the ER patient was noted to be tachycardic initially to the 110s, tachypneic, hypoxic to 83% on room air, improved to 94% on 4LNC. Lab work revealed leukopenia and thrombocytopenia, mildly elevated transaminases, elevated CRP to 26.62, elevated D-dimer, elevated procalcitonin. COVID-19 testing positive. Chest x-ray showed extensive bilateral airspace opacities suggestive of multifocal pneumonia. CTA chest performed without evidence of central pulmonary emboli, however technically limited study. It did however note bilateral multifocal pneumonia. Patient is not COVID-19 vaccinated. He does not endorse any chest discomfort, nausea or vomiting, diarrhea. He reports feeling much better on the 4 L nasal cannula. Of note, also diagnosed with shingles several days ago, however was not started on medications due to length of symptoms. He reports continued pain and some new lesions. Allergies Allergy/AdvReac Type Severity Reaction Status Date / Time Penicillins Allergy Intermediate RASH, Verified 01/08/22 21:46 ITCHING hydrocodone AdvReac Mild NAUSEA AND Verified 01/08/22 21:46 VOMITING Home Medications Medication Instructions Recorded Confirmed Type fexofenadine 180 mg tablet 180 mg PO DAILY PRN 07/12/19 01/08/22 History (Eleni Allergy) ibuprofen 200 mg tablet (Motrin IB) 400 mg PO DAILY PRN tab 10/06/21 01/08/22 History allopurinol 100 mg tablet 100 mg PO DAILY #30 tab 10/30/21 01/08/22 Rx benzonatate 200 mg capsule 200 mg PO TID PRN #30 cap 01/04/22 01/08/22 Rx gabapentin 300 mg capsule 300 mg PO BID #60 cap 01/08/22 01/08/22 Rx Past Med/Surg History Medical History (Updated 01/09/22 @ 08:28 by Derrek Ingram MD) Allergic rhinitis Benign prostatic hyperplasia Gout Hypertension Mantle cell lymphoma Nausea and vomiting after administration of anesthetic agent Surgical History History of autologous stem cell transplant (10/2018) History of hand surgery RIGHT 5 YRS AGO History of lymph node biopsy (02/2018) Cervical History of prostate surgery TURP History of sinus surgery (07/20/19) Revision L max antrostomy, Revision L complete ethmoidectoy Family History Mother Breast cancer Father Hodgkins disease Sister Diabetes Denies family history of Clotting disorder Social History Smoking Status: Never smoker Second Hand Exposure: No; Do You Dip or Chew Tobacco: No; Tobacco Cessation Education Requested by Patient: No Hx Alcohol Use: Yes (moderate) Alcohol type: beer Alcohol Intake Frequency: Monthly or Less Hx Substance Use: No Preferred Language: Bhutanese Communication Ability: Effective Assistant Superintendent For Curriculum Required: No Beliefs That Will Affect Care: None marital status: Current Living Situation: Spouse current occupational status: employed current occupation: Self employed industrial truck driver Other Information That Helps Us Care for You: No Feels Safe at Home: Yes Safety Concerns: Feels Safe At This Time Dental Care, Regularly: Yes Physical Activity Frequency: Daily Seatbelt Use: always Sunscreen Use: No Assistive Devices: None Review of Systems Review of Systems: All systems reviewed & are unremarkable except as noted in HPI & below Constitutional: + fever and + malaise; no chills Respiratory: + cough and + dyspnea Cardiovascular: no chest pain, no palpitations and no edema Gastrointestinal: no abdominal pain, no constipation and no diarrhea/loose stools Physical Exam Constitutional: WD/WN, vitals as above Eyes: PERRL, conjunctivae normal, anicteric sclerae ENMT: external ear and nose normal, oropharynx normal Neck: normal visual inspection Respiratory: normal respiratory effort, lungs clear to auscultation (pauses for breaths every 5 or so words; satruating to 94% on 4LNC) Cardiovascular: HR irregularly irregular, tachycardic, no murmurs, no peripheral edema Gastrointestinal (Abdomen): normal bowel sounds, soft, nontender, no hepatosplenomegaly Musculoskeletal: no cyanosis or clubbing, extremities motor strength 5/5 Skin: no rashes, warm and dry Neurologic: AAOx3, normal speech. Bilateral UE, LE, and face without sensory or motor deficits. Psychiatric: A+Ox3, euthymic affect Results & Data Results & Data ([facility]) Vital Signs (Past 12 Hours) Vital Signs Temp Pulse Pulse Resp BP BP Pulse Ox 01/08/22 19:51 90 01/08/22 19:45 99 H 37 H 153/93 H 100 01/08/22 19:44 93 01/08/22 19:43 101 H 22 93 01/08/22 18:51 36 H 97 01/08/22 18:36 83 L 01/08/22 18:31 36.8 C 121 H 30 H 171/82 H 83 L Supervising Physician Co-Signing Physician Notes Attending addendum: I have physically seen this patient, have supervised the medical residents activities, and agree with the H&P unless as otherwise noted. Assessment and Plan: Acute respiratory failure with hypoxia/COVID-19 pneumonia/secondary bacterial pneumonia Dexamethasone 6 mg IV daily Remdesivir IV per protocol Vancomycin IV and Zosyn IV Follow sputum Gram stain and culture Follow blood cultures Trending CRP as noted A. fib with RVR- The patient will be admitted to telemetry for serial cardiac enzymes, serial EKG's, cardiac rhythm monitoring and a 2-D echocardiogram with Dopplers. Lopressor IV and orally as noted Lovenox 1 mg/kg subcu twice daily Optimize potassium from 3.5-4 with oral and IV potassium Remaining orders and notations as noted Resident Activity Tracking Resident Involvement: Resident Care Provided Care Provided: Adult Hospital Medicine
[2022-01-08] MEDS ORDERED: dexAMETHasone 4 MG in SYRINGE 0 ML IV ONE (21:18)
[2022-01-08] MEDS ORDERED: REMDESIVIR 200 MG in SODIUM CHLORIDE 0.9% 210 ML IV STA (21:18)
[2022-01-08] MEDS ORDERED: OPTIRAY 320 125ml IV ONE (21:29)
[2022-01-08] MEDS ORDERED: METOPROLOL TARTRATE 1 MG/ML VIAL IV STA ×3 (21:47→23:11)
[2022-01-08] MEDS ORDERED: POTASSIUM CHLORIDE CRTAB 20 MEQ TABCR PO STA (21:49)
[2022-01-08] MEDS ORDERED: POTASSIUM CHLORIDE / WTR 10 MEQ/100 ML PLCT IV STA (21:49)
[2022-01-08] MEDS ORDERED: METOPROLOL TARTRATE 25 MG TAB PO STA (21:55)
--- NOTE | 2022-01-08 22:12 | CT Scan Report ---
CT angio chest PE protocol CT DOSE: 807.93 mGy.cm HISTORY: 56 years-old Male with PE. Acute shortness of breath in a patient with history of lymphoma TECHNIQUE: Multiple CTA images of the chest were obtained after the intravenous administration of 118 ml Optiray. Coronal and sagittal MIPS were obtained from the axial data set and were submitted for review. All measurements were obtained according to NASCET criteria. A dose lowering technique was u tilized adhering to the principles of ALARA. COMPARISON: Chest CT 07/17/2021 FINDINGS: CTA: The heart is upper limits of normal in size. No pericardial effusion. No thoracic aortic aneurysm or dissection. Suboptimal evaluation of the pulmonary artery secondary to contrast bolus timing and resp iratory motion artifact. No central pulmonary emboli identified. CT CHEST: No thyroid nodule. Mildly enlarged paratracheal and subcarinal lymph nodes measure up to 10 mm. Small pleural effusions. No pneumothorax. Multifocal bilateral groundglass and consolidative opacities. Mo derate to extensive. Central airways are patent. Hepatic steatosis. No acute process of the imaged up per abdomen. No acute fracture. No suspicious bone lesion. IMPRESSION: 1. Limited evaluation of the pulmonary artery as above. No central pulmonary emboli identified. 2. Moderate to extensive bilateral groundglass and consolidative opacities are suggestive of viral pn eumonia. 3. Small pleural effusions. 4. Mild mediastinal and hilar adenopathy, likely reactive. 5. Hepatic steatosis. ACT 112: Negative or not required by law. The above report was generated using voice recognition software. It may contain grammatical, syntax o r spelling errors. Electronically signed by: Lyle Lunsford M.D. 01/08/2022 10:11 PM
[2022-01-08] MEDS ORDERED: VANCOMYCIN CONSULT ACTIVE PRN (23:01)
[2022-01-08] MEDS ORDERED: POLYETHYLENE (MIRALAX) 17 GM PACK PO PRN (23:01)
[2022-01-08] MEDS ORDERED: ONDANSETRON INJ 2 MG/ML 2 ML VIAL IV PRN (23:01)
[2022-01-08] MEDS ORDERED: VANCOMYCIN HCL 2,750 MG in SODIUM CHLORIDE 0.9% 500 ML IV STA (23:17)
[2022-01-08] MEDS: valACYclovir HCL 500 MG TABLET PO SCH (23:44)
[2022-01-08] MEDS: ENOXAPARIN INJ 120 MG/0.8 ML SYR SQ SCH (23:51)
[2022-01-09] MEDS ORDERED: dilTIAZem HCl 5 MG/ML 5 ML VIAL IV STA (00:04)
[2022-01-09] MEDS ORDERED: POTASSIUM CHLORIDE CRTAB 20 MEQ TABCR PO STA (00:19)
[2022-01-09] MEDS: AZTREONAM 2,000 MG in DEXTROSE 5% 100 ML IV SCH ×3 (01:23→15:46)
[2022-01-09] MEDS: POTASSIUM CHLORIDE / WTR 10 MEQ/100 ML PLCT IV SCH ×3 (01:25→03:33)
--- NOTE | 2022-01-09 03:50 | Pharmacy Report ---
Pharmacy Vanc AUC Short Note - Date of Service January 09, 2022 - Assessment & Plan Assessment * Mr Govea is a 56 year old M receiving Vancomycin for treatment of pneumonia. * Pertinent microbiologic data includes: MRSA Nasal Swab pending, BCx pending, COVID-19 positive * Procalcitonin: 1.06 ng/mL * Significant PMH includes: mantle cell lymphoma s/p stem cell transplant, last cycle of chemo 10/2021, active shingles infection Plan Vancomycin * AUC/SCARLETT is the preferred PK/PD target for vancomycin * AUC guided dosing is effective and associated with decreased risk of nephrotoxicity compared to traditional trough targets * Vancomycin 2750mg (~24mg/kg) IV x1 dose, then: * Vanc 1250mg IV q12h * This regimen is anticipated to produce trough level of 16.8 mcg/mL, and is predicted to achieve target AUC/SCARLETT of 400-600 mg/L.hr. It may be associated with a 12% risk of nephrotoxicity * Trough level ordered prior to the 4th dose. Azactam 2gm IV q8h Valtrex 1gm PO TID (for active herpes zoster infxn) Pharmacy will continue to follow and will adjust dose/frequency as necessary. Thank you.
[2022-01-09 06:47] LABS: Hematocrit (blood only) 39.9 % (42-52); Hemoglobin 13.7 g/dL (14.0-18.0); Mean Corpuscular Hemoglobin 29.7 pg (25-34); Mean Corpuscular Hgb Conc 34.3 g/dL (32-36); Mean Corpuscular Volume 86.6 fL (80-100); Mean Platelet Volume 9.2 fL (7.4-10.4); Platelet Count 133 K/uL (130-400); RDW Coefficient of Variation 14.8 % (11.5-14.5); RDW Standard Deviation 47.4 fL (36.4-46.3); Red Blood Count 4.61 M/uL (4.7-6.1); White Blood Count 3.21 K/uL (4.8-10.8)
[2022-01-09] MEDS ORDERED: METOPROLOL TARTRATE 1 MG/ML VIAL IV STA (06:57)
--- NOTE | 2022-01-09 06:59 | Communication Note ---
Date of Service: January 09, 2022 Patient converted to sinus at 0156. He reverted to afib rvr 130s-140s at ~0656. Ordering 1 dose of IV Lopressor. Deferring further management to day team.
[2022-01-09 07:10] LABS: Albumin Globulin Ratio 1.4 (0.9-2); Albumin Level 3.3 gm/dl (3.4-5.0); BUN Creatinine Ratio 24.4 (10-20); Bilirubin,Total 0.7 mg/dl (0.2-1.0); C Reactive Protein 23.35 mg/dl (0-0.5); Calcium 8.1 mg/dl (8.5-10.1); Creatinine Clr Calc Pharmacy 125.4 ml/min; Est GFR (African American) 110.3 ml/min; Est GFR (Non-African American) 95.1 ml/min; Globulin 2.3 gm/dl (2.5-4.0); Potassium 4.1 mmol/L (3.5-5.1); Total Protein 5.6 gm/dl (6.0-8.3)
[2022-01-09 07:23] LABS: Echinocytes 1+; Lymphocytes # (auto) 0.22 K/uL (1.2-3.4); Lymphocytes % (auto) 6.9 %; Monocytes # (auto) 0.09 K/uL (0.11-0.59); Monocytes % (auto) 2.8 %; Neutrophils % (auto) 90.3 %
[2022-01-09] MEDS: valACYclovir HCL 500 MG TABLET PO SCH ×3 (07:43→19:59)
[2022-01-09] MEDS: dexAMETHasone 6 MG in SYRINGE 0 ML IV SCH (07:43)
--- NOTE | 2022-01-09 08:31 | Hospitalist Progress Note ---
Date of Service January 09, 2022 Assessment & Plan (1) COVID-19: Plan: First symptoms: ~approx 12/31 at home First tested: home test + 12/31; in our system 01/08/22 Vaccinated: No Admission date: 01/08/2022 Admission O2 requirement: 4 L nasal cannula Admission CRP: 23.35 Dexamethasone course started: 01/08/22 Remdesivir started: 01/08/22 Tocilizumab given/baricitinib started: Antibiotics: Procalcitonin is 1.06 vancomycin, Aztreonam (2) Atrial flutter: Plan: AFib with RVR: -Pt States that after stem cell was on amiodarone for a short time. -EKG showed AFib with RVR. started amiodarone bolus and gtt, 01/09/22 - po metoprolol 25 tartrate bid -started Lovenox 1mg/kg SQ BID for now for anticoagulation. -Echo pending (3) Acute respiratory failure with hypoxia: Plan: Multifocal groundglass appearance on CT scan, consistent to viral pneumonia As patients procalcitonin is up currently treated with antibiotics (4) Mantle cell lymphoma: Plan: First diagnosed 01/31/2018 with stage III status post autologous stem cell transplant now 3 years of maintenance on rituximab completed October 2021 (5) Shingles: Plan: -7 days of rash symptoms; started valacyclovir 1000mg TID x7 days for shingles. -Isolation precautions ordered. (6) Hypertension: Plan: Code Status: FULL CODE FEN: Low sodium diet DVT ppx: Lovenox 1mg/kg BID (with ppx for COVID-19, and anticoagulation for AFib) Dispo: Telemetry Admission and Anticipated Discharge Date Admission Date: January 08, 2022 Subjective Patient is in no particular distress although having rapid atrial arrhythmias this morning he has subjectively feeling improvement in his shortness of breath being able to speak in full sentences he can walk short distances to the bathroom without being significantly dyspneic he still is requiring oxygen sup plementation about 4 L nasal cannula he remains on dexamethasone remdesivir with an elevated CRP to 23 but not progression of his oxygen need at this time to necessitate baricitinib treatment Review of Systems Review of Systems: Moderate distress and fatigue no headache, no visual changes no speech or swallowing issues no chest pain, pressure or subjective palpitations Continue shortness of breath, nonproductive cough or wheezes no abdominal pain, nausea or vomiting, no diarrhea no dysuria, hematuria or frequency no focal joint pain or swelling no back pain, CVA tenderness or radicular pain no bruising, bleeding or rashes no focal signs of weakness or numbness or altered sensation no complaints of anxiety or depression.. Physical Exam Physical Exam: The patient appeared mild to moderate respiratory distress Vital signs as documented. Head exam is normocephalic atraumatic Neck is without JVD, thyromegaly, or carotid bruits. Lungs are coarse bilaterally in all lung irvin tachypnea Cardiac exam, Rhythm is regular.. No murmurs, rubs or gallops. Abdominal exam reveals normal bowel sounds, soft non tender, no masses Extremities are nonedematous and both pedal pulses are present Neurologic exam is alert and oriented, no focal loss of strength or sensation Skin is without bruises or rashes Psychologically is without concerns for anxiety or depression.. Results & Data Results & Data ([facility]) Vital Signs (Past 12 Hours) Vital Signs Temp Pulse Pulse Pulse Resp BP BP 01/09/22 07:42 97.5 F L 131 H 28 H 01/09/22 07:15 131 H 126/84 01/09/22 06:55 145 H 01/09/22 04:42 97.7 F 74 16 01/09/22 01:42 98.2 F 130 H 24 131/96 01/09/22 00:46 118 H 105/70 01/08/22 23:33 146 H 138/92 01/08/22 23:01 148 H 01/08/22 22:28 98.8 F 122 H 28 H 136/96 01/08/22 22:16 98.8 F 122 H 28 H 136/96 01/08/22 21:51 169 H 158/85 H 01/08/22 21:00 92 H 32 H 158/85 H BP Pulse Ox 01/09/22 07:42 126/84 95 01/09/22 07:15 01/09/22 06:55 136/80 01/09/22 04:42 129/83 91 01/09/22 01:42 95 01/09/22 00:46 01/08/22 23:33 01/08/22 23:01 02/18/22 22:28 94 01/08/22 22:16 94 01/08/22 21:51 01/08/22 21:00 94 PG Care Time/CCT Total # of Minutes Spent Total Time Spent with Patient: Total time spent is greater than 50% in coordination of care (as documented) at patient's floor/unit and/or counseling patient: Coding Level of Care Code 47000 Subseq Hosp Care Lvl 3 Diagnoses Acute respiratory failure with hypoxia J96.01 Mantle cell lymphoma C83.10 COVID-19 U07.1 Shingles B02.9 Hypertension I10 Atrial flutter I48.92
[2022-01-09] MEDS: METOPROLOL TARTRATE 1 MG/ML VIAL IV PRN ×3 (08:58→18:48)
[2022-01-09] MEDS ORDERED: AMIODARONE IV BOLUS & DRIP IV STA (09:13)
[2022-01-09] MEDS ORDERED: STAT IV Infusion **Titration per Protocol STA (09:13)
[2022-01-09] MEDS ORDERED: 0.2 MICRON FILTER SET 1 EA IV ONE (09:13)
[2022-01-09] MEDS ORDERED: AMIODARONE / D5W 150 MG/100 ML BAG IV STA (09:24)
[2022-01-09] MEDS ORDERED: MAGNESIUM SULFATE / D5W 1 GM/100 ML BAG IV ONE (09:30)
[2022-01-09] MEDS ORDERED: AMIODARONE / D5W 360 MG/200 ML BAG IV ONE (09:33)
--- NOTE | 2022-01-09 09:40 | Electrocardiogram Report ---
Test Reason : Blood Pressure : / mmHG Vent. Rate : 116 BPM Atrial Rate : 116 BPM P-R Int : 130 ms QRS Dur : 086 ms QT Int : 346 ms P-R-T Axes : 045 055 029 degrees QTc Int : 480 ms Sinus tachycardia with PAC's and atrial triplets When compared with ECG of 09-JUN-2018 09:37, Vent. rate has increased BY 38 BPM PAC's are new Confirmed by Ace Langford ([id number]) on 01/09/2022 9:40:24 AM Referred By: REFERRED SELF Confirmed By:Ace Langford
--- NOTE | 2022-01-09 09:43 | Electrocardiogram Report ---
Test Reason : Blood Pressure : / mmHG Vent. Rate : 144 BPM Atrial Rate : 103 BPM P-R Int : 000 ms QRS Dur : 088 ms QT Int : 316 ms P-R-T Axes : 000 055 002 degrees QTc Int : 489 ms Atrial fibrillation with rapid ventricular response Nonspecific ST abnormality Abnormal ECG When compared with ECG of 08-JAN-2022 21:43, (unconfirmed) Afib has replaced NSR with PAC's Confirmed by Ace Langford ([id number]) on 01/09/2022 9:43:34 AM Referred By: REFERRED SELF Confirmed By:Ace Langford
[2022-01-09] MEDS: METOPROLOL TARTRATE 25 MG TAB PO SCH ×2 (10:32→19:59)
[2022-01-09] MEDS: ENOXAPARIN INJ 120 MG/0.8 ML SYR SQ SCH (10:33)
[2022-01-09] MEDS ORDERED: VANCOMYCIN HCL 1,250 MG in SODIUM CHLORIDE 0.9% 250 ML IV SCH (14:00)
[2022-01-09] MEDS: AMIODARONE / D5W 360 MG/200 ML BAG IV SCH (17:13)
[2022-01-09] MEDS: REMDESIVIR 100 MG in SODIUM CHLORIDE 0.9% 230 ML IV SCH (19:59)
--- NOTE | 2022-01-09 21:22 | Billing Data ---
Date of Service January 09, 2022 Coding Level of Care Code 65270 Initial Inpt Care Lvl 3
[2022-01-10] MEDS: ENOXAPARIN INJ 120 MG/0.8 ML SYR SQ SCH ×3 (00:19→23:46)
[2022-01-10] MEDS: AZTREONAM 2,000 MG in DEXTROSE 5% 100 ML IV SCH ×4 (00:20→23:28)
[2022-01-10] MEDS: ACETAMINOPHEN 325 MG TAB PO PRN ×4 (01:24→21:11)
[2022-01-10] MEDS: AMIODARONE / D5W 360 MG/200 ML BAG IV SCH ×2 (04:32→16:31)
[2022-01-10 06:05] LABS: Hematocrit (blood only) 37.9 % (42-52); Hemoglobin 12.9 g/dL (14.0-18.0); Mean Corpuscular Hemoglobin 29.3 pg (25-34); Mean Corpuscular Volume 86.1 fL (80-100); Mean Platelet Volume 9.5 fL (7.4-10.4); Platelet Count 135 K/uL (130-400); RDW Coefficient of Variation 14.7 % (11.5-14.5); RDW Standard Deviation 46.2 fL (36.4-46.3); White Blood Count 5.92 K/uL (4.8-10.8)
[2022-01-10 06:30] LABS: Albumin Globulin Ratio 1.5 (0.9-2); BUN Creatinine Ratio 32.7 (10-20); Bilirubin,Total 0.6 mg/dl (0.2-1.0); C Reactive Protein 11.93 mg/dl (0-0.5); Calcium 8.3 mg/dl (8.5-10.1); Creatinine Clr Calc Pharmacy 114.6 ml/min; Est GFR (African American) 99.5 ml/min; Est GFR (Non-African American) 85.8 ml/min; Magnesium 2.3 mg/dl (1.7-2.4); Potassium 4.3 mmol/L (3.5-5.1)
[2022-01-10 06:46] LABS: Basophils # (auto) 0.01 K/uL (0-0.2); Basophils % (auto) 0.2 %; Echinocytes 2+; Immature Granulocytes # (auto) 0.01 K/uL (0.00-0.02); Immature Granulocytes % (auto) 0.2 %; Lymphocytes # (auto) 0.34 K/uL (1.2-3.4); Lymphocytes % (auto) 5.7 %; Monocytes # (auto) 0.27 K/uL (0.11-0.59); Monocytes % (auto) 4.6 %; Neutrophils # (auto) 5.29 K/uL (1.4-6.5); Neutrophils % (auto) 89.3 %
[2022-01-10] MEDS: dexAMETHasone 6 MG in SYRINGE 0 ML IV SCH (08:45)
[2022-01-10] MEDS: valACYclovir HCL 500 MG TABLET PO SCH ×3 (08:45→20:58)
[2022-01-10] MEDS: METOPROLOL TARTRATE 50 MG TAB PO SCH ×2 (08:45→20:59)
--- NOTE | 2022-01-10 11:01 | Electrocardiogram Report ---
Test Reason : Blood Pressure : / mmHG Vent. Rate : 156 BPM Atrial Rate : 312 BPM P-R Int : 000 ms QRS Dur : 084 ms QT Int : 248 ms P-R-T Axes : 259 052 013 degrees QTc Int : 399 ms Atrial flutter with 2:1 A-V conduction Abnormal ECG When compared with ECG of 08-JAN-2022 21:43, Atrial flutter has replaced Atrial fibrillation Confirmed by Ace Langford ([id number]) on 01/10/2022 11:00:59 AM Referred By: REFERRED SELF Confirmed By:Ace Langford
[2022-01-10] MEDS ORDERED: VANCOMYCIN TROUGH ONE (13:30)
--- NOTE | 2022-01-10 14:59 | Hospitalist Progress Note ---
Date of Service January 10, 2022 Assessment & Plan (1) COVID-19: Plan: First symptoms: ~approx 12/31 at home First tested: home test + 12/31; in our system 01/08/22 Vaccinated: No Admission date: 01/08/2022 Admission O2 requirement: 4 L nasal cannula Admission CRP: 23.35 Dexamethasone course started: 01/08/22 Remdesivir started: 01/08/22 Tocilizumab given/baricitinib started: Antibiotics: Procalcitonin is 1.06 initially vancomycin, Aztreonam, de escalated to Aztreonam, may consider oral cephalosporin at discharage such as cefdinir (2) Atrial flutter: Plan: AFib/Flutter with RVR: -Pt States that after stem cell was on amiodarone for a short time but was lost to follow up at [facility] and medication ran out. -EKG showed AFib with RVR. started amiodarone bolus and gtt, 01/09/22 - po metoprolol uptitrated to 50 tartrate bid 01/10/22 -started Lovenox 1mg/kg SQ BID for now for anticoagulation. likely will need oral AC at d/c -Echo placed on hold with covid status (3) Acute respiratory failure with hypoxia: Plan: Multifocal groundglass appearance on CT scan, consistent to viral pneumonia As patients procalcitonin is up currently treated with antibiotics (4) Mantle cell lymphoma: Plan: First diagnosed 01/31/2018 with stage III status post autologous stem cell transplant now 3 years of maintenance on rituximab completed October 2021 (5) Shingles: Plan: -7 days of rash symptoms; started valacyclovir 1000mg TID x7 days for shingles. -Isolation precautions ordered. -still very painful (6) Hypertension: Plan: Code Status: FULL CODE FEN: Low sodium diet DVT ppx: Lovenox 1mg/kg BID (with ppx for COVID-19, and anticoagulation for AFib) Dispo: Telemetry Admission and Anticipated Discharge Date Admission Date: January 08, 2022 Subjective Patient is in no particular distress although having persistent ventricular rates in the 100-1 20 range despite amiodarone and escalation of metoprolol therapy. Patient recalls having similar issues in the past but having self di scontinued amiodarone at home. Patient is not self-aware of his palpitations. His Covid issues have improved dramatically the biggest issue remains his ventricular rate from his atrial arrhythmia Review of Systems Review of Systems: Moderate distress and fatigue no headache, no visual changes no speech or swallowing issues no chest pain, pressure or subjective palpitations improving shortness of breath, nonproductive cough no wheezes no abdominal pain, nausea or vomiting, no diarrhea no dysuria, hematuria or frequency no focal joint pain or swelling no back pain, CVA tenderness or radicular pain no bruising, bleeding or rashes no focal signs of weakness or numbness or altered sensation no complaints of anxiety or depression. Physical Exam Physical Exam: The patient appeared mild to moderate respiratory distress Vital signs as documented. Head exam is normocephalic atraumatic Neck is without JVD, thyromegaly, or carotid bruits. Lungs are coarse bilaterally in all lung irvin tachypnea Cardiac exam, Rhythm is regular.. No murmurs, rubs or gallops. Abdominal exam reveals normal bowel sounds, soft non tender, no masses Extremities are nonedematous and both pedal pulses are present Neurologic exam is alert and oriented, no focal loss of strength or sensation Skin is without bruises or rashes Psychologically is without concerns for anxiety or depression.. Results & Data Results & Data ([facility]) Vital Signs (Past 12 Hours) Vital Signs Temp Pulse Resp BP Pulse Ox 01/10/22 11:36 97.9 F 101 H 19 119/80 99 01/10/22 07:39 98.1 F 114 H 21 121/77 95 01/10/22 04:48 98.2 F 104 H 18 125/89 96 PG Care Time/CCT Total # of Minutes Spent Total Time Spent with Patient: Total time spent is greater than 50% in coordination of care (as documented) at patient's floor/unit and/or counseling patient: Coding Level of Care Code 46681 Subseq Hosp Care Lvl 3 Diagnoses COVID-19 U07.1 Atrial flutter I48.92 Acute respiratory failure with hypoxia J96.01 Mantle cell lymphoma C83.10 Shingles B02.9 Hypertension I10
[2022-01-10] MEDS: REMDESIVIR 100 MG in SODIUM CHLORIDE 0.9% 230 ML IV SCH (20:49)
[2022-01-11] MEDS: ACETAMINOPHEN 325 MG TAB PO PRN ×2 (05:12→11:00)
[2022-01-11] MEDS: AMIODARONE / D5W 360 MG/200 ML BAG IV SCH (05:13)
[2022-01-11 07:14] LABS: Hematocrit (blood only) 38.6 % (42-52); Hemoglobin 12.8 g/dL (14.0-18.0); Mean Corpuscular Hemoglobin 28.8 pg (25-34); Mean Corpuscular Hgb Conc 33.2 g/dL (32-36); Mean Corpuscular Volume 86.9 fL (80-100); Mean Platelet Volume 9.7 fL (7.4-10.4); Platelet Count 150 K/uL (130-400); RDW Coefficient of Variation 14.8 % (11.5-14.5); RDW Standard Deviation 47.4 fL (36.4-46.3); Red Blood Count 4.44 M/uL (4.7-6.1); White Blood Count 4.24 K/uL (4.8-10.8)
[2022-01-11 07:37] LABS: Immature Granulocytes # (auto) 0.01 K/uL (0.00-0.02); Immature Granulocytes % (auto) 0.2 %; Lymphocytes # (auto) 0.22 K/uL (1.2-3.4); Lymphocytes % (auto) 5.2 %; Monocytes # (auto) 0.35 K/uL (0.11-0.59); Monocytes % (auto) 8.3 %; Neutrophils # (auto) 3.66 K/uL (1.4-6.5); Neutrophils % (auto) 86.3 %
[2022-01-11 08:09] LABS: Albumin Globulin Ratio 1.6 (0.9-2); Albumin Level 3.1 gm/dl (3.4-5.0); BUN Creatinine Ratio 35.9 (10-20); Bilirubin,Total 0.9 mg/dl (0.2-1.0); C Reactive Protein 5.76 mg/dl (0-0.5); Calcium 8.3 mg/dl (8.5-10.1); Creatinine Clr Calc Pharmacy 122.1 ml/min; Est GFR (African American) 107.4 ml/min; Est GFR (Non-African American) 92.6 ml/min; Magnesium 2.3 mg/dl (1.7-2.4); Potassium 4.5 mmol/L (3.5-5.1); Total Protein 5.1 gm/dl (6.0-8.3)
[2022-01-11] MEDS: valACYclovir HCL 500 MG TABLET PO SCH ×2 (08:15→13:50)
[2022-01-11] MEDS: dexAMETHasone 6 MG in SYRINGE 0 ML IV SCH (08:15)
[2022-01-11] MEDS: METOPROLOL TARTRATE 50 MG TAB PO SCH (08:15)
[2022-01-11] MEDS: AZTREONAM 2,000 MG in DEXTROSE 5% 100 ML IV SCH (08:15)
[2022-01-11] MEDS: ENOXAPARIN INJ 120 MG/0.8 ML SYR SQ SCH (11:27)
--- NOTE | 2022-01-11 14:10 | Discharge Summary ---
Date of Service January 11, 2022 Admission HPI Per Admitting Provider 56-year-old male past medical history significant for hypertension, mantle cell lymphoma s/p last cycle of maintenance Rituxan in October 2021 presented to the ER for worsening shortness of breath and noted hypoxia at home after having a virtual visit today with his PCP office for ongoing symptoms. He notes that he tested positive with a home test for COVID-19 on 12/31, and he started having symptoms the day prior. Since then he has had off-and-on fevers, chills, general malaise. Over the last 2 days or so he has noted an increased dyspnea on exertion, and today he was having dyspnea even with speaking in sentences when talking to his PCP during visit. He was advised to go to the ER for ongoing symptoms especially of his hypoxia on pulse ox were to worsen. In the ER patient was noted to be tachycardic initially to the 110s, tachypneic, hypoxic to 83% on room air, improved to 94% on 4LNC. Lab work revealed leukopenia and thrombocytopenia, mildly elevated transaminases, elevated CRP to 26.62, elevated D-dimer, elevated procalcitonin. COVID-19 testing positive. Chest x-ray showed extensive bilateral airspace opacities suggestive of multifocal pneumonia. CTA chest performed without evidence of central pulmonary emboli, however technically limited study. It did however note bilateral multifocal pneumonia. Patient is not COVID-19 vaccinated. He does not endorse any chest discomfort, nausea or vomiting, diarrhea. He reports feeling much better on the 4 L nasal cannula. Of note, also diagnosed with shingles several days ago, however was not started on medications due to length of symptoms. He reports continued pain and some new lesions. Principal Diagnosis Acute failure with hypoxia COVID-19 positive test (U07.1, COVID-19) with Acute Pneumonia (J12.89, Other viral pneumonia) (If respiratory failure or sepsis present, add as separate assessment) Atrial fibrillation flutter with conversion to sinus rhythm status post amiodarone infusion Discharge Exam The patient appeared well Vital signs as documented. Lungs are clear to auscultation and appear unlabored Cardiac exam, Rhythm is regular.. No murmurs, rubs or gallops. Abdominal exam reveals normal bowel sounds, soft non tender, no masses Extremities are nonedematous and both pedal pulses are normal. Neurologic exam is alert and oriented, no focal loss of strength or sensation Skin is without bruises or rashes Psychologically is without concerns for anxiety or depression. Discharge Data Allergies Allergy/AdvReac Type Severity Reaction Status Date / Time Penicillins Allergy Intermediate RASH, Verified 01/08/22 21:46 ITCHING hydrocodone AdvReac Mild NAUSEA AND Verified 01/08/22 21:46 VOMITING Consultations 01/08/22 20:26 ED Decision to Admit Stat Ordered Studies 01/08/22 20:46 CT angio chest PE protocol Stat Hospital Course (1) COVID-19: First symptoms: ~approx 12/31 at home First tested: home test + 12/31; in our system 01/08/22 Vaccinated: No Admission date: 01/08/2022 Admission O2 requirement: 4 L nasal cannula Admission CRP: 23.35 Dexamethasone course started: 01/08/22 complete 10-day course at home Remdesivir started: 01/08/22 hypoxia resolved treatment course truncated Tocilizumab given/baricitinib started: These medications were not started as oxygen requirement that did not meet criteria although his inflammatory markers were elevated Antibiotics: Procalcitonin is 1.06 initially vancomycin, Aztreonam, de escalated to Aztreonam, patient will not be discharged on antibiotics at this time with great improvement (2) Atrial flutter: AFib/Flutter with RVR: -Pt States that after stem cell was on amiodarone for a short time but was lost to follow up at [facility] and medication ran out. -EKG showed AFib with RVR. started amiodarone bolus and gtt, 01/09/22 - po metoprolol uptitrated to 50 tartrate bid 01/10/22 -started Lovenox 1mg/kg SQ BID for now for anticoagulation. Patient converted to normal sinus rhythm overnight from 01/10 the 01/11, will be discharged on Eliquis therapy with metoprolol and amiodarone 400 twice daily with close follow-up with electrophysiology, I personally spoke to Dr. Muro to make those arrangements -Echo placed on hold with covid status (3) Acute respiratory failure with hypoxia: Multifocal groundglass appearance on CT scan, consistent to viral pneumonia (4) Mantle cell lymphoma: First diagnosed 01/31/2018 with stage III status post autologous stem cell transplant now 3 years of maintenance on rituximab completed October 2021 (5) Shingles: -7 days of rash symptoms; started valacyclovir 1000mg TID x7 days for shingles. -Discharged with completion of his course of valacyclovir encouraged to get the shingles vaccine once recovered (6) Hypertension: Code Status: FULL CODE Total Time Total Time Spent Total Time Spent (In Minutes): It required greater than 30 minutes to prepare this patient for discharge Discharge Plan Discharge Items Patient Disposition: Home - Self-Care Reason For Visit: ACUTE HYPOXIC RESPIRATORY FAILURE, COVID 19 Discharge Diagnosis: covid pneumonia atrial fibrillation and flutter, converted to sinus rhythm Activity: Per Instructions section Activity Comment: limit exertion until you are fully recovered Non-emergency contact: Primary Care Provider and Stacker Attendant Call non-emergency contact if: your symptoms worsen and you have a fever Follow-up/Referrals: Pablo Hunt CRNP [Nurse Practitioner] - 01/25/22 10:20 am Elizabeth Rose DO [Primary Care Provider] - Rohan Muro MD [Physician] - Diet: Regular Addtl Attending Provider Instructions: You have been diagnosed with covid infection, it would be recommended that you quarantine yourself for 10 days from your first test or first symptoms, and if at the 10th day you have no symptoms the you can come off quarantine but use common sense precautions. Quarantine means attempting to stay away from people who have not had an active covid infection in the past, and if you have to be around others to wear a mask even if you are indoors, do not share a room to sleep in with others until you are out of quarantine. If you still have symptoms at the 10th day, continue to quarantine until you are symptom free for 48 hours While you are in the hospital you were diagnosed with a rapid heart rate which originated from the top chambers of your heart called the atria. You were both in atrial fibrillation and atrial flutter. Your were started on a new medic ation called amiodarone and a medication called metoprolol. Some of the biggest risks of this rapid heart rate could be originating a blood clot which could go to any part of your body including your brain and cause a stroke so most people with this rhythm are put on a blood thinner you will be started on 1 called Eliquis and you will have further discussions with your tax collection coordinator Dr. Muro regarding these medications. You should be contacted by his office to set up an appointment in the near future Medication Instructions: Your condition is typically treated with an anticoagulant. Anticoagulants will thin your blood to help prevent new clots. * You should take her medication exactly as directed. * Never skip a dose. * Never take a double dose. If you miss a dose, take it as soon as you remember. Call your Primary Care doctor if you experience any of the following: * Swelling or Pain in your leg * Sudden, continuous pain deep in a muscle * Pain that worsens when you are active or when you stand still for a long time * Chest Pain * Sudden Shortness of Breath * Rapid or pounding heart beat * Fainting * Dizziness * Cough with blood or bloody sputum * Sweating more than normal * Bruises * Heavy or uncontrolled bleeding * Blood in your urine, stool or vomit * Black or tarry stools Caring for Your Self at Home: * Avoid sitting, standing or lying down for long periods without moving your legs and feet * When traveling by car, stop to get out and move around at least once every 3 hours * On long airplane, train or bus rides, get up and move around when possible * If you can't get up, wiggle your toes and tighten your calves to keep your blood moving Follow Up: It is important for you to keep your follow up appointments with your medical provider. You are also diagnosed with shingles during her hospital stay will be given additional doses of an antiviral medication to help keep these away and also reduce your risk of chronic pain that can result at the single site of infection. Although you did have the shingles infection you contact your primary care provider as a shingles vaccine is still indicated to prevent your risk of recurrence in the future. Pending Studies at Discharge: No Stand-Alone Forms: My [employer], Smoking Cessation Medications and DC Order Prescriptions: New valacyclovir 500 mg Tablet 1,000 mg PO TID Qty: 12 RF: 0 metoprolol tartrate 50 mg Tablet 50 mg PO BID Qty: 60 RF: 3 amiodarone 400 mg tablet 400 mg PO BID 30 Days Qty: 60 RF: 0 dexamethasone 6 mg tablet 6 mg PO DAILY Qty: 7 RF: 0 Eliquis 5 mg tablet 5 mg PO BID Qty: 60 RF: 0 Continued allopurinol 100 mg tablet 100 mg PO DAILY Qty: 30 RF: 2 benzonatate 200 mg capsule 200 mg PO TID PRN (Reason: cough) Qty: 30 RF: 0 gabapentin 300 mg capsule 300 mg PO BID Qty: 60 RF: 2 ibuprofen [Motrin IB] 200 mg tablet 400 mg PO DAILY PRN (Reason: Pain) RF: 0 fexofenadine [Eleni Allergy] 180 mg Tablet 180 mg PO DAILY PRN (Reason: Allergic Symptoms) RF: 0 Discharge Orders: Discharge Order (Routine); Ordered 01/11/22 Ordered By: Derrek Ingram Admission Data Admit Date/Time: 01/08/22 21:07 Attending Provider: Derrek Ingram Admit Provider: Elaine Jose Primary Care Provider: Elizabeth Rose Other Providers: Lucas Velasquez Other Interventions: Discharge Summary Assessment (RN) Last Done: 01/11/22 12:01 Coding Level of Care Code D/C DAY MANAGEMENT >30 MINS Diagnoses COVID-19 U07.1 Atrial flutter I48.92 Acute respiratory failure with hypoxia J96.01 Mantle cell lymphoma C83.10 Shingles B02.9 Hypertension I10
== END 2022-01-11 14:55 | disposition home or self-care (01) | DRG 177 ==
LOC: ED 18:17 → SUATTDRO 21:07 → 2S 21:07

== ENCOUNTER 2023-02-15 12:19 | Inpatient (IN) ==
[2023-02-15] MEDS ORDERED: dilTIAZem HCl 5 MG/ML 5 ML VIAL IV ONE (12:49)
[2023-02-15] MEDS ORDERED: SODIUM CHLORIDE 0.9% 1000ML 1,000 ML IV ONE (12:51)
[2023-02-15] MEDS ORDERED: dilTIAZem HCl 5 MG/ML 5 ML VIAL IV STA ×2 (12:51→15:43)
[2023-02-15] MEDS ORDERED: STAT IV Infusion **Titration per Protocol STA (12:53)
[2023-02-15] MEDS: dilTIAZem HCL 125 MG in DEXTROSE 5% 100 ML IV SCH ×2 (13:06→22:42)
[2023-02-15 13:15] LABS: Basophils # (auto) 0.06 K/uL (0-0.2); Basophils % (auto) 0.8 %; Eosinophils # (auto) 0.24 K/uL (0-0.50); Hematocrit (blood only) 42.5 % (42.0-52.0); Hemoglobin 15.5 g/dl (14.0-18.0); Immature Granulocytes # (auto) 0.02 K/uL (0.01-0.20); Immature Granulocytes % (auto) 0.3 %; Lymphocytes # (auto) 1.69 K/uL (1.2-3.4); Lymphocytes % (auto) 21.2 %; Mean Corpuscular Hemoglobin 30.2 pg (25.0-34.0); Mean Corpuscular Hgb Conc 36.5 g/dL (32.0-36.0); Mean Corpuscular Volume 82.8 fL (80.0-100.0); Mean Platelet Volume 8.8 fL (9.4-12.4); Monocytes # (auto) 0.76 K/uL (0.11-0.59); Monocytes % (auto) 9.5 %; Neutrophils % (auto) 65.2 %; Platelet Count 160 K/uL (130-400); RDW Coefficient of Variation 14.4 % (11.5-14.5); RDW Standard Deviation 43.3 fL (36.4-46.3); Red Blood Count 5.13 M/uL (4.70-6.10); White Blood Count 7.97 K/ul (4.8-10.8)
[2023-02-15 13:21] LABS: Partial Thromboplastin Time 26.9 Seconds (21.0-31.0); Prothrombin Time 10.8 Seconds (9.0-12.0)
[2023-02-15 13:29] LABS: Bilirubin Direct 0.2 mg/dl (0-0.2); Total Protein 7.1 gm/dl (6.0-8.3)
[2023-02-15 13:34] LABS: Troponin I High Sensitivity 10.8 pg/ml (0-20)
--- NOTE | 2023-02-15 13:36 | XRay Report ---
XR chest 1V portable HISTORY: 57 years-old Male Chest pain, nonspecific COMPARISON: Chest CT 01/22/2022 TECHNIQUE: AP view of the chest FINDINGS: Cardiac silhouette is enlarged. Left subclavian Kwhxgn-t-Rapr catheter distal tip terminates in the r egion of the inferior SVC. No pneumothorax, or large pleural effusion. There is mildly improved aerat ion of the lungs with persistent interstitial coarsening ill-defined airspace densities, left greater than right. Bones appear grossly intact. IMPRESSION: 1. Cardiomegaly with mildly improved aeration of the lungs compared to the 01/22/2022 study. 2. Persistent left greater than right alveolar and interstitial opacities which may represent a resol ving infectious or inflammatory pneumonitis. ACT 112: Negative or not required by law. The above report was generated using voice recognition software. It may contain grammatical, syntax o r spelling errors. Electronically signed by: Lyle Lunsford M.D. 02/15/2023 1:34 PM
[2023-02-15 13:37] LABS: Creatinine Clr Calc Pharmacy 95.8 ml/min
--- NOTE | 2023-02-15 13:49 | Electrocardiogram Report ---
Test Reason : Blood Pressure : / mmHG Vent. Rate : 163 BPM Atrial Rate : 174 BPM P-R Int : 000 ms QRS Dur : 078 ms QT Int : 258 ms P-R-T Axes : 000 064 000 degrees QTc Int : 424 ms Poor data quality, interpretation may be adversely affected Atrial fibrillation with rapid ventricular response Abnormal ECG When compared with ECG of 09-JAN-2022 08:53, Atrial fibrillation has replaced Atrial flutter ST no longer depressed in Inferior leads Confirmed by Matteo Melchor ([id number]) on 02/15/2023 1:49:17 PM Referred By: Confirmed By:Matteo Melchor
[2023-02-15 13:51] LABS: BUN Creatinine Ratio 14.5 (10-20); Calcium 9.7 mg/dl (8.6-10.3); Est GFR (African American) 79.7 ml/min; Est GFR (Non-African American) 68.8 ml/min; Potassium 4.1 mmol/L (3.5-5.1)
[2023-02-15] MEDS ORDERED: OPTIRAY 320 500ml IV ONE (14:37)
--- NOTE | 2023-02-15 14:55 | CT Scan Report ---
CT SCAN OF THE BRAIN WITHOUT IV CONTRAST CLINICAL HISTORY: Headache. COMPARISON STUDY: CT scan of the sinuses dated 10/01/2019. TECHNIQUE: Unenhanced axial CT scan of the brain is performed from the vertex to the skull base. A d ose lowering technique was utilized adhering to the principles of ALARA. CT DOSE: 3306.43 mGy.cm FINDINGS: Brain parenchyma: The brain parenchyma is normal in appearance. There is no hemorrhage, mass effect, or evidence of acute territorial ischemia by CT criteria. Leary-white matter differentiation is preser jaden. No extra-axial fluid collection is seen. Mineralization is noted in the basal ganglia. Ventricles, sulci, cisterns: Normal in configuration. Intracranial vasculature: The visualized intracranial vasculature at the skull base is normal in appe arance. Calvarium: Unremarkable. Sinuses and mastoids: The visualized paranasal sinuses are clear. The mastoid air cells are well pneu matized. Orbits: The bony orbits are grossly intact. IMPRESSION: There is no hemorrhage, mass effect, or evidence of acute territorial ischemia by CT woody elizalde. ACT 112: Negative or not required by law. Electronically signed by: Chris Zacarias M.D. 02/15/2023 2:54 PM
[2023-02-15] MEDS ORDERED: KETOROLAC TROMETHAMINE 15 MG/ML VIAL IV STA (14:59)
--- NOTE | 2023-02-15 15:07 | CT Scan Report ---
CHEST CTA for PULMONARY ARTERIES CT DOSE: HISTORY: Epigastric pain. Shortness of breath. TECHNIQUE: Multiaxial CT images of the chest were performed following the intravenous administration of contrast to evaluate the pulmonary arteries. Maximal intensity projection images were also obtaine d. A dose lowering technique was utilized adhering to the principles of ALARA. COMPARISON STUDY: Chest CT 07/16/2022. FINDINGS: The abdominal structures will be reported on the same day abdomen and pelvis CT. There are small bilateral pleural effusions. The thyroid gland enhances normally. Normal esophagus. No pericard ial effusion. The heart is borderline enlarged. Mildly enlarged bilateral hilar and subcarinal lymph nodes have increased in size. The dominant subcarinal lymph node on image 213 measures 2.8 x 1.4 cm. These may be reactive. No acute fractures identified. Normal caliber thoracic aorta with no evidence for a dissection. Mild calcified plaque within the coronary arteries. No filling defects within the p ulmonary arteries to suggest a pulmonary embolus. No pneumothorax. The central airways are patent. Di ffuse interlobular septal thickening with upper lobe patchy groundglass densities. This likely repres ents pulmonary edema. Mild dependent changes seen at the lung bases posteriorly. IMPRESSION: 1. Pulmonary edema with small bilateral pleural effusions. 2. Mild mediastinal and bilateral hilar lymphadenopathy which is slightly progressed. This could be r eactive to the pulmonary edema. 3. No evidence for a pulmonary embolus. 4. The abdominal structures will be reported on the same day abdomen and pelvis CT. ACT 112: Negative or not required by law. Electronically signed by: Vladimir Palomino M.D. 02/15/2023 3:06 PM
--- NOTE | 2023-02-15 15:10 | CT Scan Report ---
CT SCAN OF THE ABDOMEN AND PELVIS WITH IV CONTRAST CLINICAL HISTORY: Epigastric abdominal pain. History of lymphoma. COMPARISON STUDY: Abdominal CT dated 07/16/2022. TECHNIQUE: Following the IV administration of 113 cc of Optiray 320, CT scan of the abdomen and pelv is is performed from the lung bases to the proximal femora. Images are reviewed in the axial, sagitta l, and coronal planes. IV contrast was administered without complication. A dose lowering technique w as utilized adhering to the principles of ALARA. FINDINGS: Lung bases: The heart is enlarged and without pericardial effusion. There are small pleural effusions with dependent atelectasis. Intralobular septal thickening is seen at both lung bases and indicates congestive failure. A small hiatal hernia is noted. Liver: The contrast-enhanced liver is enlarged, measuring 20.6 cm in length. Contour and attenuation are normal. There is no intrahepatic biliary ductal dilatation. The hepatic veins and portal veins ar e patent. There is periportal edema. Gallbladder: Unremarkable. Spleen: The spleen is enlarged measuring 16.9 cm in length. Pancreas: Unremarkable. Adrenal glands: Unremarkable. Kidneys: The contrast enhanced kidneys are normal in size and without hydronephrosis. The kidneys enh ance symmetrically. Abdominal vasculature: The abdominal aorta is normal in course and caliber. Bowel: There is mild colonic diverticulosis without CT evidence of acute diverticulitis. No bowel obs truction is seen1. The appendix is well-visualized and normal. Peritoneum: There is no intraperitoneal free air or abdominal ascites. There is a fat-containing umbi lical hernia. Lymphadenopathy: There are residual mesenteric and rectovaginal lymph nodes with surrounding infiltra tion. These have modestly increased in size as compared to the 07/16/2022 examination. A left periaort ic node on image #185 measures 1.7 x 1.2 cm. A mesenteric node on image #201 measures 2.1 x 1.1 cm. Pelvic viscera: The prostate gland is mildly enlarged and heterogeneous noticing median lobe hypertro phy. The bladder is distended, and the wall appears thickened/trabeculated indicating chronic outlet obstruction. Skeletal structures: There is mild lumbosacral spondylosis. No lytic or blastic lesions are seen. IMPRESSION: 1. Cardiomegaly with evidence of congestive failure and small pleural effusions. 2. No acute infectious or inflammatory findings are identified in the abdomen or pelvis. 3. Hepatosplenomegaly. 4. There are residual mesenteric and retroperitoneal lymph nodes with surrounding infiltration. These appear minimally increased in size as compared to 07/16/2022. Attention at follow-up is recommended. 5. Additional findings as above. ACT 112: Negative or not required by law. Electronically signed by: Chris Zacarias M.D. 02/15/2023 3:09 PM
--- NOTE | 2023-02-15 15:51 | History & Physical Report ---
Date of Service February 15, 2023 Assessment & Plan (1) Atrial fibrillation: Plan: Continue diltiazem IV drip @ 15ml/hr while we up titrate metoprolol tartrate po - start with 25mg PO q6h. Wean diltiazem per parameters. Start anticoagulation as discussed with Dr Melchor - Lovenox 1mg/kg q12h, will defer longer term anticoagulation to cardiology [id number] - 1, if counting CHF however since this is presumably only rate related he is really only a 0. TTE TSH 1.05 Consult cardiology - NPO after midnight as patient may consider MICHAEL with cardioversion if recommended as he wishes to be discharged tomorrow (2) Acute heart failure with preserved ejection fraction: Plan: Suspect rate related failure and likely won't recur with rate control Lasix 20mg IV now then daily Strict I&Os Daily weights Plan VTE Prophylaxis - Lovenox Diet - heart healthy, NPO after midnight Disposition - admit to PCU Admission and Anticipated Discharge Date Admission Date: February 15, 2023 History of Present Illness Chief Complaint: Elevated heart rate, shortness of breath Primary Care Provider: DO Phuc Givens Jeferson is a 57 year old male who presents to the ER with abdominal distension and shortness of breath. He discussed this at his primary care appointment today and EKG showed he was in atrial fibrillation with rapid vent ricular rate therefore he was sent to the ER for evaluation. He denies any chest pain, palpitations, PND, claudication, presyncope or syncope. He notes significant orthopnea and shortness of breath on exertion has been getting progressively worse over the last 4 days. No fever, chills, cough, nasal congestion, sinus pain, nausea, vomiting, diarrhea or urinary symptoms. He recently finished a course of doxycycline at the beginning of this month due to sinus pain, postnasal drip and enlarge left sided cervical lymph node. He has a significant history of paroxysmal atrial fibrillation. Once after stem cell transplant and again with COVID-19 last year. After COVID-19 he followed up with Dr Muro and given exacerbating event and low [id number] score both amiodarone and Eliquis were stopped. He has also since stopped the metoprolol. In the ER EKG showed atrial fibrillation with 163 bpm. He was given 20mg IV diltiazem and started on an IV diltiazem drip. He was given 1L NSS bolus however subsequent CXR/CT concerning for pulmonary edema. He was referred to medicine for admission and ongoing management of atrial fibrillation with rapid ventricular rate. Allergies Allergy/AdvReac Type Severity Reaction Status Date / Time Penicillins Allergy Intermediate RASH, Verified 02/15/23 15:44 ITCHING hydrocodone AdvReac Mild NAUSEA AND Verified 02/15/23 15:44 VOMITING Home Medications Medication Instructions Recorded Confirmed Type fexofenadine 180 mg tablet 180 mg PO DAILY PRN Allergic 07/12/19 02/15/23 History (Eleni Allergy) Symptoms ibuprofen 200 mg tablet (Motrin IB) 400 mg PO DAILY PRN Pain 10/06/21 02/15/23 History vitamin B complex (B 1 tab PO BID 04/05/22 02/15/23 History Complex-Vitamin B12 tablet) allopurinol 100 mg tablet 100 mg PO DAILY #30 tabs 12/13/22 02/15/23 Rx albuterol sulfate 90 mcg/actuation 2 inh inhalation Q6H PRN Shortness 02/15/23 02/15/23 History breath activated powder inhaler Of Breath Or Wheezing famotidine 20 mg tablet (Pepcid AC) 20 mg PO DAILY 02/15/23 02/15/23 History lactobacillus combination no.9 4 4,000 mmu cells PO DAILY 02/15/23 02/15/23 History billion cell capsule (Adult 50 Plus Probiotic) Past Med/Surg History Medical History Allergic rhinitis Benign prostatic hyperplasia Gout Hypertension Mantle cell lymphoma Nausea and vomiting after administration of anesthetic agent Surgical History History of autologous stem cell transplant (10/2018) History of hand surgery RIGHT 5 YRS AGO History of lymph node biopsy (02/2018) Cervical History of prostate surgery TURP History of sinus surgery (07/20/19) Revision L max antrostomy, Revision L complete ethmoidectoy Family History Mother Breast cancer Father Hodgkins disease Sister Diabetes Denies family history of Ovarian cancer Prostate cancer Clotting disorder Myocardial infarction Colorectal cancer Social History Smoking Status: Never smoker Second Hand Exposure: No; Hx Alcohol Use: No Hx Substance Use: No Preferred Language: Korean Communication Ability: Effective Visual Impairment: No Limitations Hearing Ability: Normal Warehouse Insulation Worker Required: No Beliefs That Will Affect Care: None marital status: Current Living Situation: Spouse current occupational status: employed current occupation: Self employed truck driver helper How many Children do You have: 2 Other Information That Helps Us Care for You: No Feels Safe at Home: Yes Safety Concerns: Feels Safe At This Time Childhood Exposure to Second-Hand Smoke: Yes Diet Comment: Regular caffeine: No during the past year weight has: remained stable Dental Care, Regularly: Yes Physical Activity Frequency: Daily Seatbelt Use: always Sunscreen Use: No Assistive Devices: None Review of Systems Review of Systems: All systems reviewed & are unremarkable except as noted in HPI & below Physical Exam Constitutional: WD/WN, vitals as above Eyes: + anicteric sclerae; normal pupil size ENMT: external ear and nose normal, oropharynx normal Neck: trachea midline, no thyromegaly Respiratory: normal respiratory effort Auscultation: + breath sounds absent (bibasal) and + crackles (midzone); no wheezes Cardiovascular: Rate/Rhythm: + tachycardic and + irregularly irregular Heart Sounds: no murmur Extremities: normal capillary refill and + pedal edema (trace pitting b/l equal); no calf tenderness Gastrointestinal (Abdomen): Inspection/Auscultation: + abdomen distended Percussion/Palpation: abdomen soft; abdomen nontender, no guarding and abdomen not rigid Musculoskeletal: no cyanosis or clubbing, extremities motor strength 5/5 Skin: no rashes, warm and dry Neurologic: moves all extremities and awake; not confused Psychiatric: A+Ox3, euthymic affect Results & Data Results & Data Vital Signs (Past 12 Hours) Vital Signs Temp Pulse Pulse Resp BP BP Pulse Ox 02/15/23 15:01 156/116 H 02/15/23 15:01 155 H 15 02/15/23 15:00 126 H 17 96 02/15/23 14:52 135 H 14 94 02/15/23 14:52 163/123 H 02/15/23 14:43 170 H 19 02/15/23 14:01 143 H 22 96 02/15/23 14:01 154/115 H 02/15/23 14:00 144 H 12 95 02/15/23 13:38 137 H 15 94 02/15/23 13:38 132/97 02/15/23 13:31 203/134 H 02/15/23 13:31 118 H 18 96 02/15/23 13:30 113 H 15 96 02/15/23 13:10 117 H 17 97 02/15/23 13:10 140/110 H 02/15/23 14:52 142 H 20 163/120 H 93 02/15/23 13:39 117 H 18 132/97 98 02/15/23 13:15 98 02/15/23 13:03 123 H 24 138/96 96 02/15/23 12:56 119 H 18 149/112 H 99 02/15/23 12:56 112 H 02/15/23 12:33 36.8 C 133 H 22 211/185 H 98 O2 Del Method 02/15/23 15:01 02/15/23 15:01 02/15/23 15:00 02/15/23 14:52 02/15/23 14:52 02/15/23 14:43 02/15/23 14:01 02/15/23 14:01 02/15/23 14:00 02/15/23 13:38 02/15/23 13:38 02/15/23 13:31 02/15/23 13:31 02/15/23 13:30 02/15/23 13:10 02/15/23 13:10 02/15/23 14:52 Room Air 02/15/23 13:39 Room Air 02/15/23 13:15 Room Air 02/15/23 13:03 02/15/23 12:56 02/15/23 12:56 02/15/23 12:33 Room Air Laboratory Results Abnormal lab results 02/15/23 02/15/23 Range/Units 12:48 12:48 MCHC 36.5 H (32.0-36.0) g/dL MPV 8.8 L (9.4-12.4) fL [place] # (Auto) 0.76 H (0.11-0.59) K/uL Chloride 111 H (98-107) mmol/L Glucose 100 H (70-99(Fasting)) mg/dl Diagnostic Findings CT SCAN OF THE BRAIN WITHOUT IV CONTRAST CLINICAL HISTORY: Headache. COMPARISON STUDY: CT scan of the sinuses dated 10/01/2019. TECHNIQUE: Unenhanced axial CT scan of the brain is performed from the vertex to the skull base. A dose lowering technique was utilized adhering to the principles of ALARA. CT DOSE: 3306.43 mGy.cm FINDINGS: Brain parenchyma: The brain parenchyma is normal in appearance. There is no hemorrhage, mass effect, or evidence of acute territorial ischemia by CT cr iteria. Leary-white matter differentiation is preserved. No extra-axial fluid collection is seen. Mineralization is noted in the basal ganglia. Ventricles, sulci, cisterns: Normal in configuration. Intracranial vasculature: The visualized intracranial vasculature at the skull base is normal in appearance. Calvarium: Unremarkable. Sinuses and mastoids: The visualized paranasal sinuses are clear. The mastoid air cells are well pneumatized. Orbits: The bony orbits are grossly intact. IMPRESSION: There is no hemorrhage, mass effect, or evidence of acute territorial ischemia by CT criteria. CHEST CTA for PULMONARY ARTERIES CT DOSE: HISTORY: Epigastric pain. Shortness of breath. TECHNIQUE: Multiaxial CT images of the chest were performed following the intravenous administration of contrast to evaluate the pulmonary arteries. Maximal intensity projection images were also obtained. A dose lowering technique was utilized adhering to the principles of ALARA. COMPARISON STUDY: Chest CT 07/16/2022. FINDINGS: The abdominal structures will be reported on the same day abdomen and pelvis CT. There are small bilateral pleural effusions. The thyroid gland enhances normally. Normal esophagus. No pericardial effusion. The heart is borderline enlarged. Mildly enlarged bilateral hilar and subcarinal lymph nodes have increased in size. The dominant subcarinal lymph node on image 213 measures 2.8 x 1.4 cm. These may be reactive. No acute fractures identified. Normal caliber thoracic aorta with no evidence for a dissection. Mild calcified plaque within the coronary arteries. No filling defects within the pulmonary arteries to suggest a pulmonary embolus. No pneumothorax. The central airways are patent. Diffuse interlobular septal thickening with upper lobe patchy groundglass densities. This likely represents pulmonary edema. Mild dependent changes seen at the lung bases posteriorly. IMPRESSION: 1. Pulmonary edema with small bilateral pleural effusions. 2. Mild mediastinal and bilateral hilar lymphadenopathy which is slightly progressed. This could be reactive to the pulmonary edema. 3. No evidence for a pulmonary embolus. 4. The abdominal structures will be reported on the same day abdomen and pelvis CT. CT SCAN OF THE ABDOMEN AND PELVIS WITH IV CONTRAST CLINICAL HISTORY: Epigastric abdominal pain. History of lymphoma. COMPARISON STUDY: Abdominal CT dated 07/16/2022. TECHNIQUE: Following the IV administration of 113 cc of Optiray 320, CT scan of the abdomen and pelvis is performed from the lung bases to the proximal femora. Images are reviewed in the axial, sagittal, and coronal planes. IV contrast was administered without complication. A dose lowering technique was utilized adhering to the principles of ALARA. FINDINGS: Lung bases: The heart is enlarged and without pericardial effusion. There are small pleural effusions with dependent atelectasis. Intralobular septal thickening is seen at both lung bases and indicates congestive failure. A small hiatal hernia is noted. Liver: The contrast-enhanced liver is enlarged, measuring 20.6 cm in length. Contour and attenuation are normal. There is no intrahepatic biliary ductal dilatation. The hepatic veins and portal veins are patent. There is periportal edema. Gallbladder: Unremarkable. Spleen: The spleen is enlarged measuring 16.9 cm in length. Pancreas: Unremarkable. Adrenal glands: Unremarkable. Kidneys: The contrast enhanced kidneys are normal in size and without hydronephrosis. The kidneys enhance symmetrically. Abdominal vasculature: The abdominal aorta is normal in course and caliber. Bowel: There is mild colonic diverticulosis without CT evidence of acute diverticulitis. No bowel obstruction is seen1. The appendix is well-visualized and normal. Peritoneum: There is no intraperitoneal free air or abdominal ascites. There is a fat-containing umbilical hernia. Lymphadenopathy: There are residual mesenteric and rectovaginal lymph nodes with surrounding infiltration. These have modestly increased in size as compared to the 07/16/2022 examination. A left periaortic node on image #185 measures 1.7 x 1.2 cm. A mesenteric node on image #201 measures 2.1 x 1.1 cm. Pelvic viscera: The prostate gland is mildly enlarged and heterogeneous noticing median lobe hypertrophy. The bladder is distended, and the wall appears thickened/trabeculated indicating chronic outlet obstruction. Skeletal structures: There is mild lumbosacral spondylosis. No lytic or blastic lesions are seen. IMPRESSION: 1. Cardiomegaly with evidence of congestive failure and small pleural effusions. 2. No acute infectious or inflammatory findings are identified in the abdomen or pelvis. 3. Hepatosplenomegaly. 4. There are residual mesenteric and retroperitoneal lymph nodes with surrounding infiltration. These appear minimally increased in size as compared to 07/16/2022. Attention at follow-up is recommended. 5. Additional findings as above. Medications Administered ER Medications Given: NSS 1L bolus Diltiazem 20mg IV Diltiazem 15mg /hr Toradol 15mg IV ECG Rate (beats per minute): 163 Rhythm: atrial fibrillation Findings: no acute ischemic change Comparison ECG Date: from (Jan 09, 2022) Change: the following changes noted (atrial fibrillation replaced atrial flutter) Code Status & VTE Plan Code Status Full VTE Prophylaxis Plan VTE Prophylaxis will be ordered: Yes PG Care Time/CCT Total # of Minutes Spent Total Time Spent with Patient: Total time spent is greater than 50% in coordination of care (as documented) at patient's floor/unit and/or counseling patient: Coding Level of Care Code 27443 INT INP/OBS CARE 3/75MIN Diagnoses Atrial fibrillation I48.91 Acute heart failure with preserved ejection fraction I50.31
[2023-02-15] MEDS ORDERED: METOPROLOL TARTRATE 25 MG TAB PO STA (16:02)
[2023-02-15] MEDS ORDERED: FUROSEMIDE INJ 20 MG/2 ML VIAL IV STA (16:10)
--- NOTE | 2023-02-15 16:38 | Electrocardiogram Report ---
Test Reason : Blood Pressure : / mmHG Vent. Rate : 109 BPM Atrial Rate : 083 BPM P-R Int : 000 ms QRS Dur : 082 ms QT Int : 332 ms P-R-T Axes : 000 068 051 degrees QTc Int : 447 ms Atrial fibrillation with rapid ventricular response Nonspecific ST and T wave abnormality Abnormal ECG When compared with ECG of 15-FEB-2023 12:42, Vent. rate has decreased BY 54 BPM Confirmed by Matteo Melchor ([id number]) on 02/15/2023 4:38:03 PM Referred By: Elizabeth Rose Confirmed By:Matteo Melchor
--- NOTE | 2023-02-15 17:03 | Emergency Department Note ---
History of Present Illness General Chief complaint: Abnormal Labs/Diagnostic Testing Stated complaint: REF OVER FOR A-FIB ADNORMAL DIAGNOSTIC TEST Time Seen by Provider: 02/15/23 12:47 History of Present Illness Provider complaint: Atrial fibrillation Maximum Pain Intensity: 5 57-year-old male presents emergency department for abdominal pain shortness of breath and dizziness. Patient states he was recently diagnosed with sinus infection placed on doxycycline but states he has not been getting better and feels like his abdomen is more distended and he is more short of breath. Patient states he went to an urgent care [place] and they referred him here because they found him to be in atrial fibrillation. 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 Patient states he has been cancer free for more than a year now. He states he is not on any blood thinners or any medications for chemotherapy. Patient denies any chest pain. Home Medications Medication Instructions Recorded Confirmed Type fexofenadine 180 mg tablet 180 mg PO DAILY PRN Allergic 07/12/19 02/15/23 History (Eleni Allergy) Symptoms ibuprofen 200 mg tablet (Motrin IB) 400 mg PO DAILY PRN Pain 10/06/21 02/15/23 History vitamin B complex (B 1 tab PO BID 04/05/22 02/15/23 History Complex-Vitamin B12 tablet) allopurinol 100 mg tablet 100 mg PO DAILY #30 tabs 12/13/22 02/15/23 Rx albuterol sulfate 90 mcg/actuation 2 inh inhalation Q6H PRN Shortness 02/15/23 02/15/23 History breath activated powder inhaler Of Breath Or Wheezing famotidine 20 mg tablet (Pepcid AC) 20 mg PO DAILY 02/15/23 02/15/23 History lactobacillus combination no.9 4 4,000 mmu cells PO DAILY 02/15/23 02/15/23 History billion cell capsule (Adult 50 Plus Probiotic) Allergies Allergy/AdvReac Type Severity Reaction Status Date / Time Penicillins Allergy Intermediate RASH, Verified 02/15/23 15:44 ITCHING hydrocodone AdvReac Mild NAUSEA AND Verified 02/15/23 15:44 VOMITING Past Med/Surg History Medical History (Updated 02/15/23 @ 17:35 by Jt Anglin) Allergic rhinitis Benign prostatic hyperplasia Gout Hypertension Mantle cell lymphoma Nausea and vomiting after administration of anesthetic agent Surgical History History of autologous stem cell transplant (10/2018) History of hand surgery RIGHT 5 YRS AGO History of lymph node biopsy (02/2018) Cervical History of prostate surgery TURP History of sinus surgery (07/20/19) Revision L max antrostomy, Revision L complete ethmoidectoy Family History Mother Breast cancer Father Hodgkins disease Sister Diabetes Denies family history of Ovarian cancer Prostate cancer Clotting disorder Myocardial infarction Colorectal cancer Social History Smoking Status: Never smoker Second Hand Exposure: No; Hx Alcohol Use: Yes (moderate) Alcohol type: beer Alcohol Intake Frequency: Monthly or Less Hx Substance Use: No Preferred Language: Northern Irish Communication Ability: Effective Visual Impairment: No Limitations Hearing Ability: Normal Liner Roll Changer Required: No Beliefs That Will Affect Care: None marital status: Current Living Situation: Spouse current occupational status: employed current occupation: Self employed supervisor ordnance truck installation How many Children do You have: 2 Feels Safe at Home: Yes Childhood Exposure to Second-Hand Smoke: Yes Diet Comment: Regular caffeine: No during the past year weight has: remained stable Dental Care, Regularly: Yes Physical Activity Frequency: Daily Seatbelt Use: always Sunscreen Use: No Assistive Devices: None Physical Exam Vital Signs Vital Signs - 24 hr 02/15/23 12:33 02/15/23 12:56 02/15/23 12:56 Temperature 36.8 C Temperature Source Temporal Artery Scan Pulse Rate 133 H 112 H 119 H Pulse Rate [Apical] Pulse Rate from SpO2 Sensor 100 H Pulse Rhythm Regular Pulse Strength Normal Respiratory Rate 22 18 Respiratory Effort / Characteristics Non-Labored Spontaneous Respiratory Depth Normal Respiratory Pattern Regular Blood Pressure 211/185 H 149/112 H Blood Pressure [Right Arm] Blood Pressure Mean 193 124 Blood Pressure Mean [Right Arm] Blood Pressure Position Sitting Blood Pressure Position [Right Arm] Pulse Oximetry 98 99 Oxygen Delivery Method Room Air Sepsis Recent Fever Within 48 Hours No Sepsis New/Unexplained Change in Mental Status No Sepsis Action Taken by Nursing No Action Required 02/15/23 13:03 02/15/23 13:15 02/15/23 13:39 Temperature Temperature Source Pulse Rate 123 H Pulse Rate [Apical] 117 H Pulse Rate from SpO2 Sensor 105 H Pulse Rhythm Pulse Strength Respiratory Rate 24 18 Respiratory Effort / Characteristics Respiratory Depth Normal Respiratory Pattern Blood Pressure 138/96 Blood Pressure [Right Arm] 132/97 Blood Pressure Mean 110 Blood Pressure Mean [Right Arm] 108 Blood Pressure Position Blood Pressure Position [Right Arm] Lying Pulse Oximetry 96 98 98 Oxygen Delivery Method Room Air Room Air Sepsis Recent Fever Within 48 Hours Sepsis New/Unexplained Change in Mental Status Sepsis Action Taken by Nursing 02/15/23 14:52 02/15/23 13:10 02/15/23 13:10 Temperature Temperature Source Pulse Rate 117 H Pulse Rate [Apical] 142 H Pulse Rate from SpO2 Sensor 90 Pulse Rhythm Pulse Strength Respiratory Rate 20 17 Respiratory Effort / Characteristics Respiratory Depth Respiratory Pattern Blood Pressure 140/110 H Blood Pressure [Right Arm] 163/120 H Blood Pressure Mean 120 Blood Pressure Mean [Right Arm] 134 Blood Pressure Position Blood Pressure Position [Right Arm] Lying Pulse Oximetry 93 97 Oxygen Delivery Method Room Air Sepsis Recent Fever Within 48 Hours Sepsis New/Unexplained Change in Mental Status Sepsis Action Taken by Nursing 02/15/23 13:30 02/15/23 13:31 02/15/23 13:31 Temperature Temperature Source Pulse Rate 113 H 118 H Pulse Rate [Apical] Pulse Rate from SpO2 Sensor 99 H 94 H Pulse Rhythm Pulse Strength Respiratory Rate 15 18 Respiratory Effort / Characteristics Respiratory Depth Respiratory Pattern Blood Pressure 203/134 H Blood Pressure [Right Arm] Blood Pressure Mean 157 Blood Pressure Mean [Right Arm] Blood Pressure Position Blood Pressure Position [Right Arm] Pulse Oximetry 96 96 Oxygen Delivery Method Sepsis Recent Fever Within 48 Hours Sepsis New/Unexplained Change in Mental Status Sepsis Action Taken by Nursing 02/15/23 13:38 02/15/23 13:38 02/15/23 14:00 Temperature Temperature Source Pulse Rate 137 H 144 H Pulse Rate [Apical] Pulse Rate from SpO2 Sensor 115 H 94 H Pulse Rhythm Pulse Strength Respiratory Rate 15 12 Respiratory Effort / Characteristics Respiratory Depth Respiratory Pattern Blood Pressure 132/97 Blood Pressure [Right Arm] Blood Pressure Mean 108 Blood Pressure Mean [Right Arm] Blood Pressure Position Blood Pressure Position [Right Arm] Pulse Oximetry 94 95 Oxygen Delivery Method Sepsis Recent Fever Within 48 Hours Sepsis New/Unexplained Change in Mental Status Sepsis Action Taken by Nursing 02/15/23 14:01 02/15/23 14:01 02/15/23 14:43 Temperature Temperature Source Pulse Rate 143 H 170 H Pulse Rate [Apical] Pulse Rate from SpO2 Sensor 111 H Pulse Rhythm Pulse Strength Respiratory Rate 22 19 Respiratory Effort / Characteristics Respiratory Depth Respiratory Pattern Blood Pressure 154/115 H Blood Pressure [Right Arm] Blood Pressure Mean 128 Blood Pressure Mean [Right Arm] Blood Pressure Position Blood Pressure Position [Right Arm] Pulse Oximetry 96 Oxygen Delivery Method Sepsis Recent Fever Within 48 Hours Sepsis New/Unexplained Change in Mental Status Sepsis Action Taken by Nursing 02/15/23 14:52 02/15/23 14:52 02/15/23 15:00 Temperature Temperature Source Pulse Rate 135 H 126 H Pulse Rate [Apical] Pulse Rate from SpO2 Sensor 121 H 115 H Pulse Rhythm Pulse Strength Respiratory Rate 14 17 Respiratory Effort / Characteristics Respiratory Depth Respiratory Pattern Blood Pressure 163/123 H Blood Pressure [Right Arm] Blood Pressure Mean 136 Blood Pressure Mean [Right Arm] Blood Pressure Position Blood Pressure Position [Right Arm] Pulse Oximetry 94 96 Oxygen Delivery Method Sepsis Recent Fever Within 48 Hours Sepsis New/Unexplained Change in Mental Status Sepsis Action Taken by Nursing 02/15/23 15:01 02/15/23 15:01 02/15/23 15:30 Temperature Temperature Source Pulse Rate 155 H Pulse Rate [Apical] Pulse Rate from SpO2 Sensor Pulse Rhythm Pulse Strength Respiratory Rate 15 Respiratory Effort / Characteristics Respiratory Depth Respiratory Pattern Blood Pressure 156/116 H 156/98 H Blood Pressure [Right Arm] Blood Pressure Mean 129 117 Blood Pressure Mean [Right Arm] Blood Pressure Position Blood Pressure Position [Right Arm] Pulse Oximetry Oxygen Delivery Method Sepsis Recent Fever Within 48 Hours Sepsis New/Unexplained Change in Mental Status Sepsis Action Taken by Nursing 02/15/23 15:30 02/15/23 16:00 02/15/23 16:00 Temperature Temperature Source Pulse Rate 101 H 112 H Pulse Rate [Apical] Pulse Rate from SpO2 Sensor 114 H 102 H Pulse Rhythm Pulse Strength Respiratory Rate 24 33 H Respiratory Effort / Characteristics Respiratory Depth Respiratory Pattern Blood Pressure 145/106 H Blood Pressure [Right Arm] Blood Pressure Mean 119 Blood Pressure Mean [Right Arm] Blood Pressure Position Blood Pressure Position [Right Arm] Pulse Oximetry 97 93 Oxygen Delivery Method Sepsis Recent Fever Within 48 Hours Sepsis New/Unexplained Change in Mental Status Sepsis Action Taken by Nursing Physical Exam GENERAL: He is oriented to person, place, and time. He appears well-developed and well-nourished. He does not appear distressed. HENT: Exam performed. - Head: Normocephalic and atraumatic. - Right Ear: External ear normal. No mastoid erythema - Left Ear: External ear normal. No mastoid erythema NECK: Normal range of motion. Neck supple. No JVD present. No rigidity. No tracheal deviation and normal range of motion present. CV: Tachycardic rate, irregular rhythm, normal heart sounds and intact distal pulses. There is no peripheral edema. Palpable radial pulses bue. PULM/CHEST: Effort normal and breath sounds normal. No respiratory distress. No stridor. He has no wheezes. He has no rales. - Chest Wall: He exhibits no tenderness. ABD: The abdomen is soft. He has no distension. There is no tenderness. There is no rebound, no guarding. MUSC/SKEL: Normal range of motion. There is no peripheral edema, tenderness or deformity. LYMPH: No cervical adenopathy. NEURO: He is alert and oriented to person, place, and time. He has normal strength. No cranial nerve deficit deficit. Coordination and gait normal. GCS eye subscore is 4. GCS verbal subscore is 5. GCS motor subscore is 6. Cerebellar tests wnl. SKIN: Skin is warm and dry. He is not diaphoretic. PSYCH: He has a normal mood and affect. Behavior is normal. Judgment and thought content normal. Course Course 1247: The patient was evaluated in room B12. A complete history and physical exam was performed Cardiac monitoring: An order was placed for continuous cardiac monitoring. The monitor shows a rate of 170 with atrial fibrilation rhythm interpreted by me Patient was found to be in A-fib RVR. Large-bore IV access was obtained patient was given Cardizem 20 mg IV push. This improved the patient's ventricular rate. The patient's ventricular rate improved to 100-130. Patient be started on Cardizem drip. 1530: Patient remained in atrial fibrillation. Patient's heart rate was elevated in the patient had to be maxed out on Cardizem drip to 15 mg and required an additional bolus of 20 mg Cardizem IV push through the IV. Patient's labs are within normal limits. Imaging shows no PE. CT of the head which was requested by the patient was negative. CT of the abdomen pelvis was negative. CT of the chest does show mild pulmonary edema. [facility]. Administered Medications Diltiazem HCl 125 mg/ Dextrose 125 mls @ 15 mls/hr IV .Q8H20M [facility]; Protocol Stop: 03/17/23 12:59 Last Titration: 02/15/23 15:19 Dose: 15 mg/hr, 15 mls/hr Documented By: EDGARDO Co-signed By: STEFANIA Titration: 02/15/23 14:57 Dose: 12.5 mg/hr, 12.5 mls/hr Documented By: EDGARDO Co-signed By: DEVIN Titration: 02/15/23 14:10 Dose: 10 mg/hr, 10 mls/hr Documented By: DEVIN Co-signed By: MIKAL Admin: 02/15/23 13:06 Dose: 5 mg/hr, 5 mls/hr Documented By: SID Co-signed By: DEVIN Discontinued Medications Diltiazem HCl (Diltiazem Hcl 5 Mg/Ml 5 Ml Vial) Confirm Administered Dose 25 mg IV .STK-MED ONE Stop: 02/15/23 12:50 Last Increment: 02/15/23 12:51 Dose: 20 mg Documented By: SID Co-signed By: CHRISTIE Diltiazem HCl (Diltiazem Hcl 5 Mg/Ml 5 Ml Vial) 20 mg IV NOW STA Stop: 02/15/23 12:52 Last Admin: 02/15/23 12:58 Dose: Not Given Documented By: SID Diltiazem HCl (Diltiazem Hcl 5 Mg/Ml 5 Ml Vial) 20 mg IV NOW STA Stop: 02/15/23 15:44 Last Admin: 02/15/23 15:44 Dose: 20 mg Documented By: EDGARDO Co-signed By: STEFANIA Furosemide (Furosemide Inj 20 Mg/2 Ml Vial) 20 mg IV ONE STA Stop: 02/15/23 16:11 Last Admin: 02/15/23 16:24 Dose: 20 mg Documented By: EDGARDO Sodium Chloride (Nss 1000ml) 1,000 mls @ 999 mls/hr IV .Q1H1M ONE Stop: 02/15/23 13:51 Last Infusion: 02/15/23 14:31 Dose: 0 mls/hr Documented By: Admin: 02/15/23 13:12 Dose: 999 mls/hr Documented By: DEVIN Ioversol (Optiray 320 500ml) 113 ml IV ONCE ONE Stop: 02/15/23 14:38 Last Admin: 02/15/23 14:38 Dose: 113 ml Documented By: ANAID Ketorolac Tromethamine (Ketorolac Tromethamine 15 Mg/Ml Vial) 15 mg IV NOW STA Stop: 02/15/23 15:00 Last Admin: 02/15/23 15:08 Dose: 15 mg Documented By: EDGARDO Metoprolol Tartrate (Metoprolol Tartrate 25 Mg Tab) 25 mg PO ONE STA Stop: 02/15/23 16:03 Last Admin: 02/15/23 16:23 Dose: 25 mg Documented By: EDGARDO Critical Care Time Critical Care Time: Yes Total Critical Care Time: 78 I have personally spent greater than 78 minutes of critical care time in the direct management of this patient. This includes bedside care, interpretation of diagnostic studies, and testing, discussion with consultants, patient, and family members, and other required patient management activities. This 78 minutes is in excess of all separately billable procedures. Medical Decision Making Laboratory Data Attestation: I reviewed the patient's lab results. 02/15/23 12:48 02/15/23 12:48 Lab Results 02/15/23 02/15/23 02/15/23 Range/Units 12:48 12:48 12:48 WBC 7.97 (4.8-10.8) K/ul RBC 5.13 (4.70-6.10) M/uL Hgb 15.5 (14.0-18.0) g/dl Hct 42.5 (42.0-52.0) % MCV 82.8 (80.0-100.0) fL MCH 30.2 (25.0-34.0) pg MCHC 36.5 H (32.0-36.0) g/dL RDW Std Deviation 43.3 (36.4-46.3) fL RDW Coeff of Aly 14.4 (11.5-14.5) % Plt Count 160 (130-400) K/uL MPV 8.8 L (9.4-12.4) fL Immature Gran % (Auto) 0.3 % Neut % (Auto) 65.2 % Lymph % (Auto) 21.2 % [place] % (Auto) 9.5 % Eos % (Auto) 3.0 % Baso % (Auto) 0.8 % Neut # (Auto) 5.20 (1.40-6.50) K/uL Lymph # (Auto) 1.69 (1.2-3.4) K/uL [place] # (Auto) 0.76 H (0.11-0.59) K/uL Eos # (Auto) 0.24 (0-0.50) K/uL Baso # (Auto) 0.06 (0-0.2) K/uL Immature Gran # (Auto) 0.02 (0.01-0.20) K/uL PT 10.8 (9.0-12.0) Seconds INR 1.0 (0.9-1.1) APTT 26.9 (21.0-31.0) Seconds PTT Ratio 1.0 Sodium 141 (136-145) mmol/L Potassium 4.1 (3.5-5.1) mmol/L Chloride 111 H (98-107) mmol/L Carbon Dioxide 21 (21-32) mmol/L Anion Gap 9 (3-11) BUN 17 (6-23) mg/dl Creatinine 1.17 (0.6-1.4) mg/dl Est Cr Clr Drug Dosing 95.8 ml/min Est GFR ( Amer) 79.7 ml/min Est GFR (Non-Af Amer) 68.8 ml/min BUN/Creatinine Ratio 14.5 (10-20) Glucose 100 H (70-99(Fasting)) mg/dl Calcium 9.7 (8.6-10.3) mg/dl Total Bilirubin 1.0 (0.2-1.0) mg/dl Direct Bilirubin 0.2 (0-0.2) mg/dl AST 24 (13-39) U/L ALT 40 (7-52) U/L Alkaline Phosphatase 99 (34-104) U/L Troponin I High Sens 10.8 (0-20) pg/ml Total Protein 7.1 (6.0-8.3) gm/dl Albumin 5.0 (3.4-5.0) gm/dl Lipase 23 (11-82) U/L SARS-CoV-2, RNA, NAAT (NEGATIVE) 02/15/23 Range/Units 13:08 WBC (4.8-10.8) K/ul RBC (4.70-6.10) M/uL Hgb (14.0-18.0) g/dl Hct (42.0-52.0) % MCV (80.0-100.0) fL MCH (25.0-34.0) pg MCHC (32.0-36.0) g/dL RDW Std Deviation (36.4-46.3) fL RDW Coeff of Aly (11.5-14.5) % Plt Count (130-400) K/uL MPV (9.4-12.4) fL Immature Gran % (Auto) % Neut % (Auto) % Lymph % (Auto) % [place] % (Auto) % Eos % (Auto) % Baso % (Auto) % Neut # (Auto) (1.40-6.50) K/uL Lymph # (Auto) (1.2-3.4) K/uL [place] # (Auto) (0.11-0.59) K/uL Eos # (Auto) (0-0.50) K/uL Baso # (Auto) (0-0.2) K/uL Immature Gran # (Auto) (0.01-0.20) K/uL PT (9.0-12.0) Seconds INR (0.9-1.1) APTT (21.0-31.0) Seconds PTT Ratio Sodium (136-145) mmol/L Potassium (3.5-5.1) mmol/L Chloride (98-107) mmol/L Carbon Dioxide (21-32) mmol/L Anion Gap (3-11) BUN (6-23) mg/dl Creatinine (0.6-1.4) mg/dl Est Cr Clr Drug Dosing ml/min Est GFR ( Amer) ml/min Est GFR (Non-Af Amer) ml/min BUN/Creatinine Ratio (10-20) Glucose (70-99(Fasting)) mg/dl Calcium (8.6-10.3) mg/dl Total Bilirubin (0.2-1.0) mg/dl Direct Bilirubin (0-0.2) mg/dl AST (13-39) U/L ALT (7-52) U/L Alkaline Phosphatase (34-104) U/L Troponin I High Sens (0-20) pg/ml Total Protein (6.0-8.3) gm/dl Albumin (3.4-5.0) gm/dl Lipase (11-82) U/L SARS-CoV-2, RNA, NAAT NEGATIVE (NEGATIVE) Imaging Data Attestation: I personally reviewed and interpreted this imaging study as follows: My Impression: CT head: No [facility] Radiologist's Impression: Chest X-Ray 02/15/23 12:38 XR chest 1V portable HISTORY: 57 years-old Male Chest pain, nonspecific COMPARISON: Chest CT 01/22/2022 TECHNIQUE: AP view of the chest FINDINGS: Cardiac silhouette is enlarged. Left subclavian [id number] catheter distal tip terminates in the region of the inferior SVC. No pneumothorax, or large pleural effusion. There is mildly improved aeration of the lungs with persistent interstitial coarsening ill-defined airspace densities, left greater than right. Bones appear grossly intact. IMPRESSION: 1. Cardiomegaly with mildly improved aeration of the lungs compared to the 01/22/2022 study. 2. Persistent left greater than right alveolar and interstitial opacities which may represent a resolving infectious or inflammatory pneumonitis. ACT 112: Negative or not required by law. The above report was generated using voice recognition software. It may contain grammatical, syntax or spelling errors. Electronically signed by: Lyle Lunsford M.D. 02/15/2023 1:34 PM Abdomen/Pelvis CT 02/15/23 12:51 CT SCAN OF THE ABDOMEN AND PELVIS WITH IV CONTRAST CLINICAL HISTORY: Epigastric abdominal pain. History of lymphoma. COMPARISON STUDY: Abdominal CT dated 07/16/2022. TECHNIQUE: Following the IV administration of 113 cc of Optiray 320, CT scan of the abdomen and pelvis is performed from the lung bases to the proximal femora. Images are reviewed in the axial, sagittal, and coronal planes. IV contrast was administered without complication. A dose lowering technique was utilized adhering to the principles of ALARA. FINDINGS: Lung bases: The heart is enlarged and without pericardial effusion. There are small pleural effusions with dependent atelectasis. Intralobular septal thickening is seen at both lung bases and indicates congestive failure. A small hiatal hernia is noted. Liver: The contrast-enhanced liver is enlarged, measuring 20.6 cm in length. Contour and attenuation are normal. There is no intrahepatic biliary ductal dilatation. The hepatic veins and portal veins are patent. There is periportal edema. Gallbladder: Unremarkable. Spleen: The spleen is enlarged measuring 16.9 cm in length. Pancreas: Unremarkable. Adrenal glands: Unremarkable. Kidneys: The contrast enhanced kidneys are normal in size and without hydronephrosis. The kidneys enhance symmetrically. Abdominal vasculature: The abdominal aorta is normal in course and caliber. Bowel: There is mild colonic diverticulosis without CT evidence of acute diverticulitis. No bowel obstruction is seen1. The appendix is well-visualized and normal. Peritoneum: There is no intraperitoneal free air or abdominal ascites. There is a fat-containing umbilical hernia. Lymphadenopathy: There are residual mesenteric and rectovaginal lymph nodes with surrounding infiltration. These have modestly increased in size as compared to the 07/16/2022 examination. A left periaortic node on image #185 measures 1.7 x 1.2 cm. A mesenteric node on image #201 measures 2.1 x 1.1 cm. Pelvic viscera: The prostate gland is mildly enlarged and heterogeneous noticing median lobe hypertrophy. The bladder is distended, and the wall appears thickened/trabeculated indicating chronic outlet obstruction. Skeletal structures: There is mild lumbosacral spondylosis. No lytic or blastic lesions are seen. IMPRESSION: 1. Cardiomegaly with evidence of congestive failure and small pleural effusions. 2. No acute infectious or inflammatory findings are identified in the abdomen or pelvis. 3. Hepatosplenomegaly. 4. There are residual mesenteric and retroperitoneal lymph nodes with surrounding infiltration. These appear minimally increased in size as compared to 07/16/2022. Attention at follow-up is recommended. 5. Additional findings as above. ACT 112: Negative or not required by law. Electronically signed by: Chris Zacarias M.D. 02/15/2023 3:09 PM Chest CTA 02/15/23 12:51 CHEST CTA for PULMONARY ARTERIES CT DOSE: HISTORY: Epigastric pain. Shortness of breath. TECHNIQUE: Multiaxial CT images of the chest were performed following the intravenous administration of contrast to evaluate the pulmonary arteries. Maximal intensity projection images were also obtained. A dose lowering technique was utilized adhering to the principles of ALARA. COMPARISON STUDY: Chest CT 07/16/2022. FINDINGS: The abdominal structures will be reported on the same day abdomen and pelvis CT. There are small bilateral pleural effusions. The thyroid gland enhances normally. Normal esophagus. No pericardial effusion. The heart is borderline enlarged. Mildly enlarged bilateral hilar and subcarinal lymph nodes have increased in size. The dominant subcarinal lymph node on image 213 measures 2.8 x 1.4 cm. These may be reactive. No acute fractures identified. Normal caliber thoracic aorta with no evidence for a dissection. Mild calcified plaque within the coronary arteries. No filling defects within the pulmonary arteries to suggest a pulmonary embolus. No pneumothorax. The central airways are patent. Diffuse interlobular septal thickening with upper lobe patchy groundglass densities. This likely represents pulmonary edema. Mild dependent changes seen at the lung bases posteriorly. IMPRESSION: 1. Pulmonary edema with small bilateral pleural effusions. 2. Mild mediastinal and bilateral hilar lymphadenopathy which is slightly progressed. This could be reactive to the pulmonary edema. 3. No evidence for a pulmonary embolus. 4. The abdominal structures will be reported on the same day abdomen and pelvis CT. ACT 112: Negative or not required by law. Electronically signed by: Vladimir Palomino M.D. 02/15/2023 3:[address] 02/15/23 14:13 CT SCAN OF THE BRAIN WITHOUT IV CONTRAST CLINICAL HISTORY: Headache. COMPARISON STUDY: CT scan of the sinuses dated 10/01/2019. TECHNIQUE: Unenhanced axial CT scan of the brain is performed from the vertex to the skull base. A dose lowering technique was utilized adhering to the principles of ALARA. CT DOSE: 3306.43 mGy.cm FINDINGS: Brain parenchyma: The brain parenchyma is normal in appearance. There is no hemorrhage, mass effect, or evidence of acute territorial ischemia by CT criteria. Leary-white matter differentiation is preserved. No extra-axial fluid collection is seen. Mineralization is noted in the basal ganglia. Ventricles, sulci, cisterns: Normal in configuration. Intracranial vasculature: The visualized intracranial vasculature at the skull base is normal in appearance. Calvarium: Unremarkable. Sinuses and mastoids: The visualized paranasal sinuses are clear. The mastoid air cells are well pneumatized. Orbits: The bony orbits are grossly intact. IMPRESSION: There is no hemorrhage, mass effect, or evidence of acute territorial ischemia by CT criteria. ACT 112: Negative or not required by law. Electronically signed by: Chris Zacarias M.D. 02/15/2023 2:54 PM ECG Data Attestation: I personally reviewed and interpreted this ECG as follows: Additional Comments: EKG #1 at 1242: Atrial fibrillation with a rate of 163. QRS [address] elevation or ST depression. EKG #2 at 1255 status post Cardizem bolus: Atrial fibrillation with a rate of 109. QRS [address] elevation or ST depression. [facility] Narrative 1247: The patient was evaluated in room B12. A complete history and physical exam was performed Cardiac monitoring: An order was placed for continuous cardiac monitoring. The monitor shows a rate of 170 with atrial fibrilation rhythm interpreted by me Patient was found to be in A-fib RVR. Large-bore IV access was obtained patient was given Cardizem 20 mg IV push. This improved the patient's ventricular rate. The patient's ventricular rate improved to 100-130. Patient be started on Cardizem drip. 1530: Patient remained in atrial fibrillation. Patient's heart rate was elevated in the patient had to be maxed out on Cardizem drip to 15 mg and required an additional bolus of 20 mg Cardizem IV push through the IV. Patient's labs are within normal limits. Imaging shows no PE. CT of the head which was requested by the patient was negative. CT of the abdomen pelvis was negative. CT of the chest does show mild pulmonary edema. Patient will be admitted to the [facility] hospitalist team Dr. Contreras notified. Impression & Plan Atrial fibrillation with RVR Discharge Plan Visit Data Chief Complaint: Abnormal Labs/Diagnostic Testing Stated Complaint: DR REF OVER FOR A-FIB ADNORMAL DIAGNOSTIC TEST ED Provider: Jt Anglin Discharge Problem: Atrial fibrillation with RVR Patient Disposition: Admitted As Inpatient Forms Stand Alone Forms: My [facility] Prescriptions Prescriptions: No Action allopurinol 100 mg tablet 100 mg PO DAILY Qty: 30 2RF ibuprofen [Motrin IB] 200 mg tablet 400 mg PO DAILY PRN (Reason: Pain) vitamin B complex [B Complex-Vitamin B12] Tablet 1 tab PO BID Rx Instructions: 500 MG BID Adult 50 Plus Probiotic 4 billion cell capsule 4,000 mmu cells PO DAILY Rx Instructions: administer with a meal famotidine [Pepcid AC] 20 mg tablet 20 mg PO DAILY albuterol sulfate 90 mcg/actuation aerosol powdr breath activated 2 inh inhalation Q6H PRN (Reason: Shortness Of Breath Or Wheezing) fexofenadine [Eleni Allergy] 180 mg Tablet 180 mg PO DAILY PRN (Reason: Allergic Symptoms) Referrals Referrals: Elizabeth Rose DO [Primary Care Provider] -
[2023-02-15] MEDS ORDERED: ACETAMINOPHEN 325 MG TAB PO PRN (17:46)
[2023-02-15] MEDS ORDERED: FEXOFENADINE HCL 180 MG TAB PO PRN (17:46)
[2023-02-15] MEDS ORDERED: ENOXAPARIN 1 MG/KG SQ SCH (17:46)
[2023-02-15 17:49] LABS: Appearance Urine Clear (Clear); Bilirubin Urine Negative (Negative); Blood Urine Negative (Negative); Color Urine Yellow; Glucose Urine UA Negative (Negative); Ketones Urine Negative (Negative); Leukocyte Esterase Urine Negative (Negative); Nitrite Urine Negative (Negative); Protein Urine Negative (Negative); Specific Gravity Urine 1.023 (1.000-1.030); Urobilinogen Urine Negative (Negative); pH Urine 5.5 (4.5-7.5)
[2023-02-15] MEDS: ENOXAPARIN INJ 120 MG/0.8 ML SYR SQ SCH (18:37)
[2023-02-15 18:45] LABS: Amphetamines+Metham, Urine Neg (Neg); Barbiturates, Urine Neg (Neg); Benzodiazepine, Urine Neg (Neg); Cocaine, Urine Neg (Neg); MDMA (Ecstacy), Urine Neg (Neg); Methadone, Urine Neg (Neg); Opiate, Urine Neg (Neg); Phencyclidine, Urine Neg (Neg)
[2023-02-15] MEDS: VITAMIN B COMPLEX TAB PO SCH (21:24)
[2023-02-15] MEDS: METOPROLOL TARTRATE 25 MG TAB PO SCH (22:41)
[2023-02-16] MEDS: dilTIAZem HCL 125 MG in DEXTROSE 5% 100 ML IV SCH ×4 (00:47→13:10)
[2023-02-16 05:02] LABS: Basophils # (auto) 0.03 K/uL (0-0.2); Basophils % (auto) 0.4 %; Eosinophils % (auto) 2.5 %; Hematocrit (blood only) 41.5 % (42.0-52.0); Hemoglobin 14.4 g/dl (14.0-18.0); Immature Granulocytes # (auto) 0.01 K/uL (0.01-0.20); Immature Granulocytes % (auto) 0.1 %; Lymphocytes # (auto) 1.26 K/uL (1.2-3.4); Lymphocytes % (auto) 15.6 %; Mean Corpuscular Hemoglobin 29.4 pg (25.0-34.0); Mean Corpuscular Hgb Conc 34.7 g/dL (32.0-36.0); Mean Corpuscular Volume 84.9 fL (80.0-100.0); Mean Platelet Volume 8.7 fL (9.4-12.4); Monocytes # (auto) 0.59 K/uL (0.11-0.59); Monocytes % (auto) 7.3 %; Neutrophils % (auto) 74.1 %; Platelet Count 130 K/uL (130-400); RDW Coefficient of Variation 14.5 % (11.5-14.5); RDW Standard Deviation 44.7 fL (36.4-46.3); Red Blood Count 4.89 M/uL (4.70-6.10); White Blood Count 8.09 K/ul (4.8-10.8)
[2023-02-16 05:21] LABS: BUN Creatinine Ratio 16.2 (10-20); Calcium 9.4 mg/dl (8.6-10.3); Creatinine Clr Calc Pharmacy 95.8 ml/min; Est GFR (African American) 79.7 ml/min; Est GFR (Non-African American) 68.8 ml/min; Potassium 3.7 mmol/L (3.5-5.1)
[2023-02-16] MEDS: METOPROLOL TARTRATE 25 MG TAB PO SCH ×2 (05:25→11:50)
[2023-02-16] MEDS: ENOXAPARIN INJ 120 MG/0.8 ML SYR SQ SCH (06:32)
[2023-02-16] MEDS: VITAMIN B COMPLEX TAB PO SCH (08:47)
[2023-02-16] MEDS ORDERED: ADVANCED PROBIOTIC 1250 MG CAPSULE PO SCH (09:00)
[2023-02-16] MEDS ORDERED: allopurinoL 100 MG TAB PO SCH (09:00)
[2023-02-16] MEDS ORDERED: FAMOTIDINE 20 MG TAB PO SCH (09:00)
[2023-02-16] MEDS ORDERED: FUROSEMIDE INJ 20 MG/2 ML VIAL IV SCH (09:00)
[2023-02-16] MEDS ORDERED: POTASSIUM CHLORIDE CRTAB 20 MEQ TABCR PO STA (09:43)
--- NOTE | 2023-02-16 09:44 | XCELERA ---
[id number]
[2023-02-16] MEDS ORDERED: METOPROLOL TARTRATE 50 MG TAB PO SCH (11:00)
[2023-02-16] MEDS ORDERED: FUROSEMIDE 40 MG/4 ML VIAL IV ONE (12:00)
--- NOTE | 2023-02-16 12:55 | Cardiology Consultation ---
Date of Consultation February 16, 2023 Assessment & Plan (1) Acute systolic (congestive) heart failure: -suspect this is related to a tachycardic induced cardiomyopathy. -fortunately, high sensitivity troponin is normal. -agree with intravenous diuretics. -convert metoprolol tartrate to succinate prior to discharge. (2) Atrial fibrillation with RVR: -most likely has been present for several weeks. -would change Lovenox to Eliquis. -would up titrate metoprolol and discontinue intravenous diltiazem. -would not cardiovert until he has received 3 weeks of anticoagulation. -outpatient follow-up with Dr. Muro. History of Present Illness Attending Physician: Gladys Trinidad MD History of Present Illness Mr. Govea is a 57-year-old male admitted yesterday because of decompensated CHF and atrial fibrillation with a rapid ventricular response. This consultation was ordered to assistance cardiac management. Of note, he typically follows with Dr. Muro in the outpatient setting. The patient was in his usual state of health until approximately 4-5 days prior to presentation. He began to note progressive exertional dyspnea, abdominal distension, and experienced PND and orthopnea. He was seen in Emilia Mcpherson's office yesterday with the above complaints. An EKG noted atrial fibrillation with a rapid ventricular response of 163 beats per minute. He was sent to the emergency room for further care. The patient does carry history of asymptomatic, paroxysmal atrial fibrillation. His initial episode occurred following his stem cell transplantation back in October 2018. He had another episode while hospitalized in December 2021 with COVID pneumonia. On the 2nd occasion, he was treated with a short course of amiodarone, metoprolol, and Eliquis. Those medications were discontinued when seen in follow-up by Dr. Muro. Currently, patient is resting comfortably in bed without complaints. Past medical and surgical history 1. Borderline hypertension 2. Paroxysmal atrial fibrillation/flutter-see above 3. History of mantle cell lymphoma 4. Stem cell transplant-October 2018 5. GERD 6. BPH 7. Gout 8. 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 Allergies Allergy/AdvReac Type Severity Reaction Status Date / Time Penicillins Allergy Intermediate RASH, Verified 02/15/23 15:44 ITCHING hydrocodone AdvReac Mild NAUSEA AND Verified 02/15/23 15:44 VOMITING Home Medications Medication Instructions Recorded Confirmed Type fexofenadine 180 mg tablet 180 mg PO DAILY PRN Allergic 07/12/19 02/15/23 History (Eleni Allergy) Symptoms ibuprofen 200 mg tablet (Motrin IB) 400 mg PO DAILY PRN Pain 10/06/21 02/15/23 History vitamin B complex (B 1 tab PO BID 04/05/22 02/15/23 History Complex-Vitamin B12 tablet) allopurinol 100 mg tablet 100 mg PO DAILY #30 tabs 12/13/22 02/15/23 Rx albuterol sulfate 90 mcg/actuation 2 inh inhalation Q6H PRN Shortness 02/15/23 02/15/23 History breath activated powder inhaler Of Breath Or Wheezing famotidine 20 mg tablet (Pepcid AC) 20 mg PO DAILY 02/15/23 02/15/23 History lactobacillus combination no.9 4 4,000 mmu cells PO DAILY 02/15/23 02/15/23 History billion cell capsule (Adult 50 Plus Probiotic) Patient History Medical History Allergic rhinitis Benign prostatic hyperplasia Gout Hypertension Mantle cell lymphoma Nausea and vomiting after administration of anesthetic agent Surgical History History of autologous stem cell transplant (10/2018) History of hand surgery RIGHT 5 YRS AGO History of lymph node biopsy (02/2018) Cervical History of prostate surgery TURP History of sinus surgery (07/20/19) Revision L max antrostomy, Revision L complete ethmoidectoy Family History Mother Breast cancer Father Hodgkins disease Sister Diabetes Denies family history of Ovarian cancer Prostate cancer Clotting disorder Myocardial infarction Colorectal cancer Social History Smoking Status: Never smoker Second Hand Exposure: No; Hx Alcohol Use: No Hx Substance Use: No Preferred Language: Maori Communication Ability: Effective Visual Impairment: No Limitations Hearing Ability: Normal Pill Machine Operator Required: No Beliefs That Will Affect Care: None marital status: Current Living Situation: Spouse current occupational status: employed current occupation: Self employed trucking manager How many Children do You have: 2 Other Information That Helps Us Care for You: No Feels Safe at Home: Yes Safety Concerns: Feels Safe At This Time Childhood Exposure to Second-Hand Smoke: Yes Diet Comment: Regular caffeine: No during the past year weight has: remained stable Dental Care, Regularly: Yes Physical Activity Frequency: Daily Seatbelt Use: always Sunscreen Use: No Assistive Devices: None Physical Exam Physical Exam: In general is well-developed well-nourished white male in no acute distress. HEENT exam is negative. Neck is supple with full carotid upstrokes. No carotid bruits. Jugular is pressure is flat at 90. There is no thyromegaly. Cardiovascular exam reveals an irregular irregular rhythm with distant heart sounds. No obvious murmurs. Lungs are clear without rales, rhonchi or wheezes. Abdomen is soft nontender without bruits. Extremities reveal intact radial artery pulses bilaterally. There is no peripheral edema. Results & Data Vital Signs (Past 12 Hours) Vital Signs Pulse Pulse Resp BP BP Pulse Ox O2 Del Method 02/16/23 11:30 97 H 12 97 02/16/23 11:00 95 H 21 95 02/16/23 11:00 127/81 02/16/23 10:30 119 H 18 96 02/16/23 10:00 109 H 19 02/16/23 09:30 97 H 16 96 02/16/23 09:11 137/103 H 02/16/23 09:11 109 H 24 93 02/16/23 09:00 97 H 25 H 94 02/16/23 09:00 130/96 02/16/23 08:30 102 H 17 95 02/16/23 08:01 128/99 02/16/23 08:01 102 H 18 92 02/16/23 08:00 95 H 22 91 02/16/23 07:30 80 19 95 02/16/23 07:00 79 11 L 94 02/16/23 07:00 121/81 02/16/23 09:52 110 H 16 135/100 99 Room Air 02/16/23 06:57 74 02/16/23 06:12 95 H 18 136/100 95 02/16/23 05:00 106 H 18 144/99 H 96 02/16/23 04:00 118 H 18 164/117 H 95 02/16/23 03:00 107 H 18 140/102 H 96 02/16/23 02:07 98 H 16 146/113 H 96 Room Air 02/16/23 01:11 90 18 140/102 H 99 Room Air Laboratory Results CBC notes hemoglobin 14.4, crit 41.5, white count 8.1, platelet count [id number]. Electrolytes note a sodium of 139, potassium 3.7, chloride 109, bicarb 21, BUN 19, creatinine 1.17, and glucose of 146. Magnesium level is normal at 2.1. High sensitivity troponin is normal at 10.8. Diagnostic Findings EKG notes atrial fibrillation with a rapid ventricular response. Echocardiogram notes mild left ventricular dysfunction with ejection fraction 40%. There is moderate mitral regurgitation. Chest x-ray notes cardiomegaly and diffuse interstitial edema. CT scan the chest noted pulmonary edema but no evidence of pulmonary embolism. PG Care Time/CCT Total # of Minutes Spent Total Time Spent with Patient: Total time spent is greater than 50% in coordination of care (as documented) at patient's floor/unit and/or counseling patient: Coding Level of Care Code 58019 IN/OBS CONSULT LVL 4,60M Diagnoses Acute systolic (congestive) heart failure I50.21 Atrial fibrillation with RVR I48.91
--- NOTE | 2023-02-16 15:24 | Discharge Summary ---
Date of Service February 16, 2023 Admission HPI Per Admitting Provider Phuc Govea is a 57 year old male who presents to the ER with abdominal distension and shortness of breath. He discussed this at his primary care appointment today and EKG showed he was in atrial fibrillation with rapid ventricular rate therefore he was sent to the ER for evaluation. He denies any chest pain, palpitations, PND, claudication, presyncope or syncope. He notes significant orthopnea and shortness of breath on exertion has been getting progressively worse over the last 4 days. No fever, chills, cough, nasal congestion, sinus pain, nausea, vomiting, diarrhea or urinary symptoms. He recently finished a course of doxycycline at the beginning of this month due to sinus pain, postnasal drip and enlarge left sided cervical lymph node. He has a significant history of paroxysmal atrial fibrillation. Once after stem cell transplant and again with COVID-19 last year. After COVID-19 he followed up with Dr Muro and given exacerbating event and low [id number] score both amiodarone and Eliquis were stopped. He has also since stopped the metoprolol. In the ER EKG showed atrial fibrillation with 163 bpm. He was given 20mg IV diltiazem and started on an IV diltiazem drip. He was given 1L NSS bolus however subsequent CXR/CT concerning for pulmonary edema. He was referred to medicine for admission and ongoing management of atrial fibrillation with rapid ventricular rate. Principal Diagnosis Rapid atrial fibrillation Acute HFrEF Discharge Exam Constitutional WD/WN, vitals as above Respiratory normal respiratory effort, lungs clear to auscultation Cardiovascular Rate/Rhythm: regular rate and + irregularly irregular Heart Sounds: no murmur Extremities: no edema Gastrointestinal (Abdomen) normal bowel sounds, soft, nontender, no hepatosplenomegaly Neurologic PERRL, EOMI, accommodation nl, no face palsy, no dysarthria Psychiatric A+Ox3, euthymic affect Discharge Data Allergies Allergy/AdvReac Type Severity Reaction Status Date / Time Penicillins Allergy Intermediate RASH, Verified 02/15/23 15:44 ITCHING hydrocodone AdvReac Mild NAUSEA AND Verified 02/15/23 15:44 VOMITING Consultations 02/15/23 15:32 ED Decision to Admit Stat 02/15/23 21:37 Consult Cardiology Routine Ordered Studies 02/15/23 12:51 CT abd pelvis IV con only Stat CT angio chest PE protocol Stat 02/15/23 14:13 CT head/brain wo con Stat ECHO Hospital Course (1) Atrial fibrillation: P/w rapid afib with rates in 150-160s controlled rates with diltiazem IV drip and added po metoprolol--> able to control rates to 70-80s on po metoprolol alone, weaned off dilt gtt TSH normal Cardiology consulted -start Eliquis 5mg po bid for stroke prevention -dc to home on Toprol XL 100mg po hs and up titrate further as needed -can consider cardioversion in 3 weeks if needed after being on anticoagulation (2) Acute heart failure with preserved ejection fraction: Suspect tachyarrhythmia-induced presented with evidence of volumne overload was diuresed with IV lasix and had improvement -dc to home on Toprol XL, lasix 20mg po daily with KCl 10meq po daily x 2 weeks f/u with CHF clinic and Cardiology -can add on ACEi or ARB therapy as outpt if EF remains low after rate control and if renal function stable follow BMP as outpt with CHF clinic (3) Mantle cell lymphoma: with h/o stem cell transplant after [facility]. Nobles of On[facility] CHest here with bilat hilar and mediastinal EVE--> d/w Dr. Nobles who will order PET scan as outpt pt and aware (4) Gout: no acute issues continue allopurinol (5) Allergic rhinitis: continue eleni avoid ibuprofen once on Eliquis-takes this for sinus congestion started FLonase recently Plan Dispo-dc to home Total Time Total Time Spent Total Time Spent (In Minutes): 40 min Total Time Includes: Examination of the Patient, Discharge Planning, Medication Reconciliation and Communication With Other Providers (Cardiology) Discharge Plan Discharge Items Patient Disposition: Home - Self-Care Reason For Visit: ATRIAL FIBRILLATION WITH RAPID VENTRILCULAR RATE Discharge Diagnosis: Rapid atrial fibrillation Acute systolic congestive heart failure Activity: As commented below Lifting: Gradually increase as tolerated Bathing: No limitations Exercise/Sports: Gradually increase as tolerated Driving/Machine Use: No limitations Non-emergency contact: Primary Care Provider and Cooker [employer]ite Call non-emergency contact if: you have any medication questions and your symptoms worsen Follow-up/Referrals: Elizabeth Rose DO [Primary Care Provider] - (Follow up within 1-2 weeks.) Rohan Muro MD [Physician] - (Please call to schedule a follow up appointment within 1-2 weeks.) Diet: Low Sodium (2gm) Fluids: 1800ml (7 cups) Addtl Attending Provider Instructions: You were admitted with a rapid irregular heart rhythm called atrial fibrillation. This caused your heart to becomes weakened and caused a back flow of fluid into your lungs and body. You were given diuretics to urinate out excess fluid and started on medication to slow down the rate of your heart. You were also started on Eliquis to help prevent stroke that can be associated with atrial fibrillation. If you have any trouble with bleeding or headaches after head trauma, please come to the ER ri ght away. Your CT scan of the chest showed some slightly increased in size lymph nodes. Dr. Nobles is aware and would like to set you up for a PET scan to make sure this is not a recurrence of your lymphoma. Call your Primary Care doctor if any of the following symptoms or problems start or get worse: * Shortness of breath or difficulty breathing * Wake up at night short of breath * Chest pain * Cough * Swelling of your hands, feet, or legs * More fatigued or tired with your normal activity * Palpitations - sudden fast heart beats WEIGHT * Weigh yourself every morning after using the bathroom. * Use the same scale. * Wear the same amount of clothing. * Write your weight down on a chart. * Call your Primary Care doctor if you gain more than 2-3 pounds in 1-2 days. MEDICATIONS * Use this discharge instruction sheet for medication instructions. * Take your medications at the time your doctor ordered. * Do not skip a dose of your medicines. * If you miss a dose of medicine, take it as soon as possible, but DO NOT DOUBLE A DOSE. * Read your medicine information when you get home. * Know all of the side effects of your medicine. If in doubt, ask your pharmacist * Call your Primary Care doctor's office if you have any side effects. * Be sure all of your doctors know what medicine and herbs you take (including cold, flu, and herbal medicine). Take the following with you to your follow-up doctor appointments: * Weight Chart * Medication List * List of questions Do not drink excessive alcohol, beer or wine. Pending Studies at Discharge: No Stand-Alone Forms: My [facility], Smoking Cessation Medications and DC Order Prescriptions: New Eliquis 5 mg Tablet 5 mg PO BID Qty: 60 0RF metoprolol succinate [Toprol XL] 100 mg tablet extended release 24 hr 100 mg PO HS Qty: 30 0RF furosemide 20 mg tablet 20 mg PO DAILY Qty: 14 0RF potassium citrate 10 mEq (1,080 mg) tablet extended release 10 meq PO DAILY Qty: 14 0RF Continued allopurinol 100 mg tablet 100 mg PO DAILY Qty: 30 2RF vitamin B complex [B Complex-Vitamin B12] Tablet 1 tab PO BID Rx Instructions: 500 MG BID Adult 50 Plus Probiotic 4 billion cell capsule 4,000 mmu cells PO DAILY Rx Instructions: administer with a meal famotidine [Pepcid AC] 20 mg tablet 20 mg PO DAILY albuterol sulfate 90 mcg/actuation aerosol powdr breath activated 2 inh inhalation Q6H PRN (Reason: Shortness Of Breath Or Wheezing) fexofenadine [Eleni Allergy] 180 mg Tablet 180 mg PO DAILY PRN (Reason: Allergic Symptoms) Discontinued ibuprofen [Motrin IB] 200 mg tablet 400 mg PO DAILY PRN (Reason: Pain) Discharge Orders: Discharge Order- CHF (Routine); Ordered 02/16/23 Ordered By: Gladys Trinidad Admission Data Admit Date/Time: 02/15/23 15:47 Attending Provider: Gladys Trinidad Admit Provider: Jordan Contreras Primary Care Provider: Elizabeth Rose Other Providers: Jordan Contreras ; Rohan Muro Coding Level of Care Code 99876 INP/OBS DISCH >30 MIN Diagnoses Atrial fibrillation I48.91 Acute heart failure with preserved ejection fraction I50.31 Mantle cell lymphoma C83.10 Gout M10.9 Allergic rhinitis J30.9
[2023-02-16] MEDS ORDERED: APIXABAN 5 MG TABLET PO SCH ×2 (17:00→18:00)
== END 2023-02-16 16:00 | disposition home or self-care (01) | DRG 291 ==
LOC: ED 12:19 → SUATTDRO 15:47 → EDINP 15:47